=== PATIENT | female | born 1935 | race Caucasian/White ===

== ENCOUNTER 2021-05-28 19:29 | Inpatient (IN) | payer MEDICARE, MEDICAID, SELFPAY ==
[2021-05-28] VITALS (7 sets, daily range): BP systolic 144–168; BP diastolic 62–93; PULSE 50–70; RESP 10–20; TEMP 36.4; O2SAT 98–100; BMI 25.0
--- NOTE | 2021-05-28 19:31 | ED_ITS ---
Documented by User: Pa Leon MD 05/31/21 11:54 HPI - Syncope General: Chief Complaint: Syncope Stated Complaint: SYNCOPE x2 Time Seen by Provider: 05/28/21 19:30 History of Present Illness: HPI narrative: Ms. Santoyo is an 85-year-old lady with significant past medical history of hypertension, hyperlipidemia, and diabetes who presents emergency department due to syncope. She reports being at her baseline health. She was out side today watching someone felt offensive feels like she just got too hot. She had witnessed loss of consciousness without seizure-like activity. No head strike that she was gently lowered to the ground. She quickly recovered and no postictal period was observed or confusion. She currently feels at her baseline. No other new changes, specific provoking, exacerbating, or relieving factors identified. Review of Systems General: Reports: 10 or more systems reviewed and unremarkable except in HPI and below PFSH ED PFSH: Medical History Diabetes mellitus Hyperlipidemia Hypertension No pertinent family history Surgical History No pertinent past surgical history Social History Smoking and tobacco status: never smoked Alcohol intake: never Substance/Drug Use: never Physical Exam Narrative: EXAM NARRATIVE: GENERAL/CONSTITUTIONAL -frail-appearing. No acute distress. Eyes - PERRL, no conjunctival injection ENMT - Atraumatic external nose and ears. Moist mucous membranes NECK - supple. trachea midline CARDIOVASCULAR - regular rate and rhythm. Peripheral pulses 2+ and equal RESPIRATORY -clear to auscultation bilaterally. No retractions or accessory muscle use. ABDOMEN/GI - Nontender/Nondistended. No tenderness to percussion or evidence of peritonitis MSK - Extremities without obvious deformity or tenderness to palpation SKIN - Warm, Dry NEURO - alert and appropriately oriented. Cranial nerve II through XII intact. Strength and sensation intact. Moves all extremities equally. PSYCH - Appropriate mood and affect Course ED course: - Patient was seen and evaluated by me at bedside - Patient placed on cardiac monitors, IV access obtained - Initial evaluation notable for no acute distress, nontoxic appearance. No focal neurologic deficits. - Labs notable for no acute abnormality to explain patient's symptoms, squamous epithelial contamination present on urinalysis and patient denies urinary symptoms. - Imaging notable for no acute abnormality to explain symptoms - Upon serial reexamination after treatment the patient was similar. Results of ED evaluation were discussed with the patient and family. Offered admission versus 6-hour troponin, patient initially elected for 6-hour troponin and close outpatient follow-up. - Patient care handed off to overnight physician pending 6-hour troponin Vital Signs: Vital signs: Vital Signs Temperature 97.9 F 05/31/21 11:10 Pulse Rate 67 05/31/21 11:10 Respiratory Rate 16 05/31/21 11:10 Blood Pressure 160/76 05/31/21 11:10 Pulse Oximetry 99 05/31/21 11:10 MDM - Syncope Medical Records: Attestation: I reviewed the patient's medical records. Lab Data: Attestation: I reviewed the patient's lab results. Labs: Lab Results 05/28/21 05/28/21 05/28/21 19:45 19:45 19:45 WBC 6.7 10^3/uL 10^3/ uL (4.0-10.0) RBC 3.54 10^6/uL L 10 ^6/uL (4.1-5.3) Hgb 10.5 g/dL L g/dL (11.5-15.3) Hct 34.9 % L % (37.0-47.0) MCV 98.6 fl fl (81-99) MCH 29.7 pg pg (28.0-34.0) MCHC 30.1 g/dL g/dL (30.0-36.0) RDW 12.5 % % (12.1-15.1) Plt Count 138 10^3/cmm 10^3 /cmm (130-400) MPV 9.4 fL fL (7.4-10.4) Neut % (Auto) 54.4 % % Lymph % (Auto) 36.1 % % Craven % (Auto) 5.8 % % Eos % (Auto) 2.7 % % Baso % (Auto) 0.7 % % Neut # (Auto) 3.64 10^3/uL 10^3 /uL (1.8-7.7) Lymph # (Auto) 2.4 10^3/uL 10^3/ uL (0.8-4.8) Craven # (Auto) 0.4 10^3/uL 10^3/ uL (0.2-0.9) Eos # (Auto) 0.2 10^3/uL 10^3/ uL (0.0-0.8) Baso # (Auto) 0.1 10^3/uL 10^3/ uL (0.0-0.1) Nucleated RBC % (a uto) 0 % % Nucleated RBCs # 0.0 /100WBC /100W BC Sodium 138 mmol/L mmol/L (136-145) Potassium 4.5 mmol/L mmol/L (3.5-5.1) Chloride 107 mmol/L mmol/L (98-107) Carbon Dioxide 20 mmol/L L mmol/ L (22-29) Anion Gap 15.5 (5-19) BUN 24 mg/dL H mg/dL (8-23) Creatinine 1.0 mg/dL H mg/dL (0.5-0.9) GFR Calculation Not Reportable Glucose 79 mg/dL mg/dL (65-115) POC Glucose Calculated Osmolal ity 289 mOsm/kg mOsm/ kg (285-295) Lactate Calcium 8.5 mg/dL mg/dL (8.5-10.5) Magnesium 1.6 mg/dL L mg/dL (1.7-2.3) Total Bilirubin 0.2 mg/dL mg/dL (0.15-1.2) AST 15 U/L U/L (0-32) ALT 11 U/L U/L (0-33) Alkaline Phosphata se 50 IU/L IU/L (35-105) Troponin T Baselin e 15 ng/L H ng/L (0-10) Troponin T 120 Min [place] Troponin T Troponin T Hi Sens 6Hr Troponin T Hi Sens 6Hr Delta NT-Pro-B Natriuret Pep 269 pg/mL pg/mL (0-450) Total Protein 5.8 g/dL L g/dL (6.6-8.7) Albumin 3.5 g/dL g/dL (3.5-5.2) Globulin 2.3 g/dL g/dL (1.3-4.6) TSH 3.17 uIU/mL uIU/m L (0.27-4.20) Urine Color Urine Appearance Urine pH Ur Specific Gravit y Urine Protein Urine Glucose (UA) Urine Ketones Urine Blood Urine Nitrate Urine Bilirubin Urine Urobilinogen Ur Leukocyte Genesis ase Urine RBC Urine WBC Ur Squamous Epith Cells Amorphous Sediment Urine Bacteria 05/28/21 05/28/21 05/28/21 20:10 20:22 20:25 WBC RBC Hgb Hct MCV MCH MCHC RDW Plt Count MPV Neut % (Auto) Lymph % (Auto) Craven % (Auto) Eos % (Auto) Baso % (Auto) Neut # (Auto) Lymph # (Auto) Craven # (Auto) Eos # (Auto) Baso # (Auto) Nucleated RBC % (a uto) Nucleated RBCs # Sodium Potassium Chloride Carbon Dioxide Anion Gap BUN Creatinine GFR Calculation Glucose POC Glucose 84 mg/dL mg/dL (70-110) Calculated Osmolal ity Lactate 1.0 mmol/L mmol/L (0.5-2.2) Calcium Magnesium Total Bilirubin AST ALT Alkaline Phosphata se Troponin T Baselin e Troponin T 120 Min [place] Troponin T Troponin T Hi Sens 6Hr Troponin T Hi Sens 6Hr Delta NT-Pro-B Natriuret Pep Total Protein Albumin Globulin TSH Urine Color Yellow (Yellow) Urine Appearance Sl cloudy A (CLEAR) Urine pH 5 (5-7) Ur Specific Gravit y 1.015 (1.005-1.030) Urine Protein Neg (Negative) Urine Glucose (UA) Norm (Normal) Urine Ketones Negative (Negative) Urine Blood 2+ H (Negative) Urine Nitrate Positive H (Negative) Urine Bilirubin Neg (Negative) Urine Urobilinogen Norm mg/dL mg/dL (Negative) Ur Leukocyte Genesis ase 2+ H (Negative) Urine RBC 10-15 /hpf H /hpf (0-2) Urine WBC 40-55 /hpf H /hpf (0-5) Ur Squamous Epith Cells 5-10 /hpf H /hpf (0-5) Amorphous Sediment Not Reportable Urine Bacteria 4+ /hpf H /hpf (NONE) 05/28/21 05/29/21 05/29/21 22:01 01:17 08:11 WBC RBC Hgb Hct MCV MCH MCHC RDW Plt Count MPV Neut % (Auto) Lymph % (Auto) Craven % (Auto) Eos % (Auto) Baso % (Auto) Neut # (Auto) Lymph # (Auto) Craven # (Auto) Eos # (Auto) Baso # (Auto) Nucleated RBC % (a uto) Nucleated RBCs # Sodium Potassium Chloride Carbon Dioxide Anion Gap BUN Creatinine GFR Calculation Glucose POC Glucose 93 mg/dL mg/dL (70-110) Calculated Osmolal ity Lactate Calcium Magnesium Total Bilirubin AST ALT Alkaline Phosphata se Troponin T Baselin e Troponin T 120 Min [place] 19.13 ng/L H ng/L (0-10) Delta Troponin T 4.13 ABS# ABS# (0-10) Troponin T Hi Sens 6Hr 29.96 ng/L H ng/L (0-10) Troponin T Hi Sens 6Hr Delta 14.96 ng/L H* ng/ L (0-12) NT-Pro-B Natriuret Pep Total Protein Albumin Globulin TSH Urine Color Urine Appearance Urine pH Ur Specific Gravit y Urine Protein Urine Glucose (UA) Urine Ketones Urine Blood Urine Nitrate Urine Bilirubin Urine Urobilinogen Ur Leukocyte Genesis ase Urine RBC Urine WBC Ur Squamous Epith Cells Amorphous Sediment Urine Bacteria EKG Data^: EKG 1: Attestation: I personally reviewed and interpreted this EKG as follows: EKG interpretation date: 05/28/21 EKG interpretation time: 21:53 Interpretation: Twelve-lead EKG shows a regular rhythm at a rate of 51. DE interval 223, QRS duration 134, QTc 451. Left axis deviation. Interpretation: Sinus rhythm. Bradycardia. Bundle branch block. Discharge Plan Discharge Patient Disposition: Placed in Observation Admit Provider: Davina Clark Clinical Impression: Syncope and collapse, Acute UTI Coding Level of Care Code ED Concrete Spreader for Chg Fwd Documented by User: Santiago Granados DO 05/29/21 02:26 HPI - Syncope General: Chief Complaint: Syncope Stated Complaint: SYNCOPE x2 Time Seen by Provider: 05/28/21 19:30 PFSH ED PFSH: Medical History Diabetes mellitus Hyperlipidemia Hypertension No pertinent family history Surgical History No pertinent past surgical history Social History Smoking and tobacco status: never smoked Alcohol intake: never Substance/Drug Use: never Course Consultations: Consultation #1: britta Time: 02:25 Vital Signs: Vital signs: Vital Signs Temperature 97.9 F 05/31/21 11:10 Pulse Rate 67 05/31/21 11:10 Respiratory Rate 16 05/31/21 11:10 Blood Pressure 160/76 05/31/21 11:10 Pulse Oximetry 99 05/31/21 11:10 MDM - Syncope MDM Narrative: Medical decision making narrative: 85-year-old female checked out to me by Dr. Torres at shift change. This lady was waiting on a 6-hour troponin, as she had a minimal delta of 4 at 2 hours after a syncopal episode. She remains asymptomatic. Her delta, though, at 6 hours is 14 just significant. She will be observed Lab Data: Labs: Lab Results 05/28/21 05/28/21 05/28/21 19:45 19:45 19:45 WBC 6.7 10^3/uL 10^3/ uL (4.0-10.0) RBC 3.54 10^6/uL L 10 ^6/uL (4.1-5.3) Hgb 10.5 g/dL L g/dL (11.5-15.3) Hct 34.9 % L % (37.0-47.0) MCV 98.6 fl fl (81-99) MCH 29.7 pg pg (28.0-34.0) MCHC 30.1 g/dL g/dL (30.0-36.0) RDW 12.5 % % (12.1-15.1) Plt Count 138 10^3/cmm 10^3 /cmm (130-400) MPV 9.4 fL fL (7.4-10.4) Neut % (Auto) 54.4 % % Lymph % (Auto) 36.1 % % Craven % (Auto) 5.8 % % Eos % (Auto) 2.7 % % Baso % (Auto) 0.7 % % Neut # (Auto) 3.64 10^3/uL 10^3 /uL (1.8-7.7) Lymph # (Auto) 2.4 10^3/uL 10^3/ uL (0.8-4.8) Craven # (Auto) 0.4 10^3/uL 10^3/ uL (0.2-0.9) Eos # (Auto) 0.2 10^3/uL 10^3/ uL (0.0-0.8) Baso # (Auto) 0.1 10^3/uL 10^3/ uL (0.0-0.1) Nucleated RBC % (a uto) 0 % % Nucleated RBCs # 0.0 /100WBC /100W BC Sodium 138 mmol/L mmol/L (136-145) Potassium 4.5 mmol/L mmol/L (3.5-5.1) Chloride 107 mmol/L mmol/L (98-107) Carbon Dioxide 20 mmol/L L mmol/ L (22-29) Anion Gap 15.5 (5-19) BUN 24 mg/dL H mg/dL (8-23) Creatinine 1.0 mg/dL H mg/dL (0.5-0.9) GFR Calculation Not Reportable Glucose 79 mg/dL mg/dL (65-115) POC Glucose Calculated Osmolal ity 289 mOsm/kg mOsm/ kg (285-295) Lactate Calcium 8.5 mg/dL mg/dL (8.5-10.5) Magnesium 1.6 mg/dL L mg/dL (1.7-2.3) Total Bilirubin 0.2 mg/dL mg/dL (0.15-1.2) AST 15 U/L U/L (0-32) ALT 11 U/L U/L (0-33) Alkaline Phosphata se 50 IU/L IU/L (35-105) Troponin T Baselin e 15 ng/L H ng/L (0-10) Troponin T 120 Min [place] Troponin T Troponin T Hi Sens 6Hr Troponin T Hi Sens 6Hr Delta NT-Pro-B Natriuret Pep 269 pg/mL pg/mL (0-450) Total Protein 5.8 g/dL L g/dL (6.6-8.7) Albumin 3.5 g/dL g/dL (3.5-5.2) Globulin 2.3 g/dL g/dL (1.3-4.6) TSH 3.17 uIU/mL uIU/m L (0.27-4.20) Urine Color Urine Appearance Urine pH Ur Specific Gravit y Urine Protein Urine Glucose (UA) Urine Ketones Urine Blood Urine Nitrate Urine Bilirubin Urine Urobilinogen Ur Leukocyte Genesis ase Urine RBC Urine WBC Ur Squamous Epith Cells Amorphous Sediment Urine Bacteria 05/28/21 05/28/21 05/28/21 20:10 20:22 20:25 WBC RBC Hgb Hct MCV MCH MCHC RDW Plt Count MPV Neut % (Auto) Lymph % (Auto) Craven % (Auto) Eos % (Auto) Baso % (Auto) Neut # (Auto) Lymph # (Auto) Craven # (Auto) Eos # (Auto) Baso # (Auto) Nucleated RBC % (a uto) Nucleated RBCs # Sodium Potassium Chloride Carbon Dioxide Anion Gap BUN Creatinine GFR Calculation Glucose POC Glucose 84 mg/dL mg/dL (70-110) Calculated Osmolal ity Lactate 1.0 mmol/L mmol/L (0.5-2.2) Calcium Magnesium Total Bilirubin AST ALT Alkaline Phosphata se Troponin T Baselin e Troponin T 120 Min [place] Troponin T Troponin T Hi Sens 6Hr Troponin T Hi Sens 6Hr Delta NT-Pro-B Natriuret Pep Total Protein Albumin Globulin TSH Urine Color Yellow (Yellow) Urine Appearance Sl cloudy A (CLEAR) Urine pH 5 (5-7) Ur Specific Gravit y 1.015 (1.005-1.030) Urine Protein Neg (Negative) Urine Glucose (UA) Norm (Normal) Urine Ketones Negative (Negative) Urine Blood 2+ H (Negative) Urine Nitrate Positive H (Negative) Urine Bilirubin Neg (Negative) Urine Urobilinogen Norm mg/dL mg/dL (Negative) Ur Leukocyte Genesis ase 2+ H (Negative) Urine RBC 10-15 /hpf H /hpf (0-2) Urine WBC 40-55 /hpf H /hpf (0-5) Ur Squamous Epith Cells 5-10 /hpf H /hpf (0-5) Amorphous Sediment Not Reportable Urine Bacteria 4+ /hpf H /hpf (NONE) 05/28/21 05/29/21 05/29/21 22:01 01:17 08:11 WBC RBC Hgb Hct MCV MCH MCHC RDW Plt Count MPV Neut % (Auto) Lymph % (Auto) Craven % (Auto) Eos % (Auto) Baso % (Auto) Neut # (Auto) Lymph # (Auto) Craven # (Auto) Eos # (Auto) Baso # (Auto) Nucleated RBC % (a uto) Nucleated RBCs # Sodium Potassium Chloride Carbon Dioxide Anion Gap BUN Creatinine GFR Calculation Glucose POC Glucose 93 mg/dL mg/dL (70-110) Calculated Osmolal ity Lactate Calcium Magnesium Total Bilirubin AST ALT Alkaline Phosphata se Troponin T Baselin e Troponin T 120 Min [place] 19.13 ng/L H ng/L (0-10) Delta Troponin T 4.13 ABS# ABS# (0-10) Troponin T Hi Sens 6Hr 29.96 ng/L H ng/L (0-10) Troponin T Hi Sens 6Hr Delta 14.96 ng/L H* ng/ L (0-12) NT-Pro-B Natriuret Pep Total Protein Albumin Globulin TSH Urine Color Urine Appearance Urine pH Ur Specific Gravit y Urine Protein Urine Glucose (UA) Urine Ketones Urine Blood Urine Nitrate Urine Bilirubin Urine Urobilinogen Ur Leukocyte Genesis ase Urine RBC Urine WBC Ur Squamous Epith Cells Amorphous Sediment Urine Bacteria Discharge Plan Discharge Patient Disposition: Placed in Observation Admit Provider: Davina Clark Clinical Impression: Syncope and collapse, Acute UTI Coding Level of Care Code ED Concrete Spreader for Sury Mccormack
--- NOTE | 2021-05-28 19:41 | XRR_ITS ---
PROCEDURE INFORMATION: Exam: XR Chest Exam date and time: 05/28/2021 7:41 PM Age: 85 years old Clinical indication: Other: Syncope; Patient HX: Syncopal episode TECHNIQUE: Imaging protocol: XR of the chest. Views: 1 view. COMPARISON: CR Chest 2 views* [id number] 11/01/2018 6:02 PM FINDINGS: Lungs: Unremarkable. No consolidation. Pleural spaces: Unremarkable. No pleural effusion. No pneumothorax. Heart/Mediastinum: Unremarkable. No cardiomegaly. Bones/joints: Unremarkable. XR/XR chest 1V portable [id number] IMPRESSION: No acute findings.
--- NOTE | 2021-05-28 19:41 | CTR_ITS ---
PROCEDURE INFORMATION: Exam: CT Head Without Contrast Exam date and time: 05/28/2021 7:41 PM Age: 85 years old Clinical indication: Syncope and collapse; Patient HX: Syncopal episode TECHNIQUE: Imaging protocol: Computed tomography of the head without contrast. Radiation optimization: All CT scans at this facility use at least one of these dose optimization techniques: automated exposure control; mA and/or kV adjustment per patient size (includes targeted exams where dose is matched to clinical indication); or iterative reconstruction. COMPARISON: CT head wo con* [id number] 11/01/2018 5:54 PM RADIATION DOSE METRICS: Total DLP (mGy-cm): 863.64 FINDINGS: Brain: There is mild cerebral atrophy. There is mild diffuse heterogeneity of the white matter attenuation, consistent with chronic white matter ischemic changes. Negative for intracranial hemorrhage. No intracranial mass. No focal areas of acute brain ischemia. No cerebral sulcal effacement. Ramos matter and white matter interfaces are preserved. Cerebral ventricles: No ventriculomegaly. Paranasal sinuses: Visualized sinuses are unremarkable. No fluid levels. Mastoid air cells: Visualized mastoid air cells are well aerated. Orbital cavity: Orbits are symmetric. Bones/joints: Unremarkable. No acute fracture. Soft tissues: Unremarkable. CT/CT head wo con* [id number] IMPRESSION: 1. Negative for acute intracranial abnormality. 2. No change from comparison. Radiation Dose CTDIVOL = (mGy): DLP = 863.64 (mGy-cm)
--- NOTE | 2021-05-28 19:42 | ECG_ITS ---
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1935 Requested By: Pa Leon Order Number: [id number] Alfredo MD: PANKAJ GRAFF Measurements Intervals [place] Rate: 51 P: 72 IN: 223 QRS: -59 QRSD: 134 T: 24 QT: 487 QTc: 451 Interpretive Statements SINUS BRADYCARDIA WITH FIRST DEGREE AV BLOCK RIGHT BUNDLE BRANCH BLOCK [120+ ms QRS DURATION, UPRIGHT V1, 40+ ms S IN I/aVL/V4/V5/V6] LEFT ANTERIOR FASCICULAR BLOCK [QRS AXIS <= -45, QR IN I, RS IN II] PROBABLE SEPTAL MYOCARDIAL INFARCTION , OF INDETERMINATE AGE [35 ms Q WAVE IN V1/V2] Compared to ECG 11/01/2018 18:23:33 First degree AV block now present Myocardial infarct finding now present Sinus rhythm no longer present Electronically Signed On 05-29-2021 20:20:11 CDT by PANKAJ GRAFF [id number]
[2021-05-28 19:56] LABS: Basophils # 0.1 10^3/uL (0.0-0.1); Basophils % 0.7 %; Eosinophils # 0.2 10^3/uL (0.0-0.8); Eosinophils % 2.7 %; Hematocrit 34.9 % (37.0-47.0); Hemoglobin 10.5 g/dL (11.5-15.3); Lymphocytes # 2.4 10^3/uL (0.8-4.8); Lymphocytes % 36.1 %; Mean Corpuscular HGB Conc 30.1 g/dL (30.0-36.0); Mean Corpuscular Hemoglobin 29.7 pg (28.0-34.0); Mean Corpuscular Volume 98.6 fl (81-99); Mean Platelet Volume 9.4 fL (7.4-10.4); Monocytes # 0.4 10^3/uL (0.2-0.9); Monocytes % 5.8 %; Neutrophils # 3.64 10^3/uL (1.8-7.7); Neutrophils % 54.4 %; Nucleated Red Blood Cells % 0 %; Platelet Count 138 10^3/cmm (130-400); Red Blood Count 3.54 10^6/uL (4.1-5.3); Red Cell Distribution Width 12.5 % (12.1-15.1); White Blood Count 6.7 10^3/uL (4.0-10.0)
[2021-05-28 20:22] LABS: Troponin(5th) Baseline 15 ng/L (0-10)
[2021-05-28 20:25] LABS: Glucose Point of Care 84 mg/dL (70-110)
[2021-05-28 20:30] LABS: Alanine Aminotransferase 11 U/L (0-33); Albumin Level 3.5 g/dL (3.5-5.2); Alkaline Phosphatase 50 IU/L (35-105); Anion Gap 15.5 (5-19); Aspartate Amino Transferase 15 U/L (0-32); Blood Urea Nitrogen 24 mg/dL (8-23); Calcium 8.5 mg/dL (8.5-10.5); Carbon Dioxide 20 mmol/L (22-29); Chloride 107 mmol/L (98-107); Globulin 2.3 g/dL (1.3-4.6); Glucose 79 mg/dL (65-115); Magnesium 1.6 mg/dL (1.7-2.3); NT Pro B Type Natriuretic Pept 269 pg/mL (0-450); Osmolality Calculated 289 mOsm/kg (285-295); Potassium 4.5 mmol/L (3.5-5.1); Sodium 138 mmol/L (136-145); Thyroid Stimulating Hormone 3.17 uIU/mL (0.27-4.20); Total Bilirubin 0.2 mg/dL (0.15-1.2); Total Protein 5.8 g/dL (6.6-8.7)
[2021-05-28 20:30] LABS: Bilirubin Urine Neg (Negative); Blood Urine 2+ (Negative); Glucose Urine UA Norm (Normal); Ketones Urine Negative (Negative); Leukocyte Esterase Urine 2+ (Negative); Nitrate Urine Positive (Negative); Protein Urine Neg (Negative); Specific Gravity, Urine 1.015 (1.005-1.030); Urine Color Yellow (Yellow); Urobilinogen Urine Norm (Negative); pH Urine 5 (5-7)
[2021-05-28 20:31] LABS: Add Urine Microscopic? YES
[2021-05-28 20:35] LABS: Add Urine Culture? Yes; Bacteria Urine 4+ /hpf; WBC Urine 40-55 /hpf (0-5)
[2021-05-28] MEDS: cefTRIAXone 1,000 MG in sodium chloride 0.9% (plus) 50 ML 100 MG IV (21:10)
--- NOTE | 2021-05-28 21:42 | ECG_ITS ---
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1935 Requested By: Pa Leon Order Number: [id number] Reading MD: PANKAJ GRAFF Measurements Intervals [place] Rate: 58 P: 56 IL: 211 QRS: -58 QRSD: 146 T: 42 QT: 481 QTc: 473 Interpretive Statements SINUS BRADYCARDIA WITH FIRST DEGREE AV BLOCK POSSIBLE LEFT ATRIAL ENLARGEMENT [-0.1mV P-WAVE IN V1/V2] RIGHT BUNDLE BRANCH BLOCK [120+ ms QRS DURATION, UPRIGHT V1, 40+ ms S IN I/aVL/V4/V5/V6] LEFT ANTERIOR FASCICULAR BLOCK [QRS AXIS <= -45, QR IN I, RS IN II] SEPTAL MYOCARDIAL INFARCTION , OF INDETERMINATE AGE [40+ ms Q WAVE IN V1/V2] Compared to ECG 05/28/2021 21:48:14 No significant changes Electronically Signed On 05-29-2021 20:23:33 CDT by PANKAJ GRAFF [id number]
--- NOTE | 2021-05-28 22:31 | PC.NURSE ---
pt support person concerned with her BG. Physician notified and ok'd to give OJ but no food at this time.
[2021-05-28 22:36] LABS: Troponin 5 2HR 19.13 ng/L (0-10); Troponin 5 2HR Delta 4.13 ABS# (0-10)
[2021-05-28] MEDS: insulin glargine 100 units/1 mL 6 UNIT SUBCUT (23:46)
[2021-05-29] VITALS (11 sets, daily range): BP systolic 105–175; BP diastolic 57–85; PULSE 51–71; RESP 14–25; TEMP 36.5–37.1; O2SAT 97–100
--- NOTE | 2021-05-29 01:42 | ECG_ITS ---
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1935 Requested By: Pa Leon Order Number: [id number] Alfredo MD: PANKAJ GRAFF Measurements Intervals [place] Rate: 70 P: [place]: QRS: 81 QRSD: 90 T: 0 QT: 377 QTc: 408 Interpretive Statements ATRIAL FIBRILLATION ANTERIOR MYOCARDIAL INFARCTION , OF INDETERMINATE AGE [40+ ms Q WAVE AND/OR ST/T ABNORMALITY IN V3/V4] INTERPRETATION BASED ON A DEFAULT AGE OF 40 YEARS Compared to ECG 05/29/2021 01:11:02 Sinus bradycardia no longer present First degree AV block no longer present Right bundle-branch block no longer present Left anterior fascicular block no longer present Myocardial infarct finding still present Electronically Signed On 05-29-2021 20:23:27 CDT by PANKAJ GRAFF [id number]
[2021-05-29 01:47] LABS: Troponin 5 6HR 29.96 ng/L (0-10)
[2021-05-29 02:07] LABS: Troponin 5 6HR Delta 14.96 ng/L (0-12)
--- NOTE | 2021-05-29 02:49 | PC.NURSE ---
spoke with family for update. daughters ihsan and zacarias both put on phi. dr callejas in to see patient at this time. pt had no questions.
--- NOTE | 2021-05-29 04:30 | USCV_ITS ---
Sara Santoyo Age: 85 Gender: F : 1935 Exam Date: 05/29/2021 06:21 Ordering Phys: Davina Clark MD Technologist: Karen Roberts Exam Location: [facility] [place] Indication: ELEVATED TROPONIN BP: / HR: 55 Rhythm: Sinus Technical Quality: Adequate MEASUREMENTS (Male / Female) Normal Values 2D ECHO LV Diastolic Diameter PLAX 3.0 cm 4.2 - 5.9 / 3.9 - 5.3 cm LV Systolic Diameter PLAX 2.1 cm IVS Diastolic Thickness 1.2 cm 0.6 - 1.0 / 0.6 - 0.9 cm IVS Systolic Thickness 1.6 cm LVPW Diastolic Thickness 1.2 cm 0.6 - 1.0 / 0.6 - 0.9 cm LVPW Systolic Thickness 1.4 cm LVOT Diameter 2.0 cm LV Ejection Fraction 2D Teich 59.1 % LV Ejection Fraction MOD 2C 63.3 % LV Ejection Fraction 2C AL 66.2 % LA Diameter 2.0 cm LA Width 3.5 cm LA Height 3.6 cm RA Width 3.1 cm RA Height 3.9 cm Aorta at Sinotubular Diameter 2.3 cm DOPPLER AV Peak Velocity 109.0 cm/s LVOT Peak Velocity 90.0 cm/s AV Area Cont Eq vti 2.6 cm squared AV Area Cont Eq pk 2.6 cm squared MV Area PHT 5.0 cm squared Mitral E to A Ratio 0.9 MV E' Velocity 57.5 cm/s Mitral E to MV E' Ratio 10.9 Mitral E to LV E' Lateral Ratio 9.8 Mitral E to LV E' Septal Ratio 12.5 TR Peak Velocity 202.7 cm/s TR Peak Gradient 16.4 mmHg TV Peak E Velocity 38.0 cm/s Right Atrial Pressure 3.0 mmHg Pulmonary Artery Systolic Pressu 19.4 mmHg PV Peak Velocity 104.0 cm/s RV Acceleration Time 0.1 s RV Ejection Time 0.4 s RV AcT/ET 0.4 FINDINGS Left Ventricle Normal left ventricular size and systolic function, EF 68 %. Mild left ventricular hypertrophy. No regional wall motion abnormalities. Grade II/IV diastolic dysfunction, moderately elevated filling pressures. Right Ventricle The right ventricle is normal in size and function. Right Atrium The right atrium is normal in size. Left Atrium The left atrium is normal in size. Mitral Valve Thickened mitral valve. Moderate mitral annular calcification. Moderate-severe mitral valve regurgitation. Aortic Valve Thickened aortic valve. Tricuspid Valve Trace tricuspid valve regurgitation. Pulmonic Valve Pulmonic valve not well visualized. Pericardium Normal pericardium without effusion. Aorta Normal ascending aorta dimension. CONCLUSIONS Normal left ventricular size and systolic function, EF 68 %. Mild left ventricular hypertrophy. No regional wall motion abnormalities. Grade II/IV diastolic dysfunction, moderately elevated filling pressures. Thickened mitral valve. Moderate mitral annular calcification. Moderate-severe mitral valve regurgitation. Thickened aortic valve. Trace tricuspid valve regurgitation. There is no pericardial effusion. There are no intracardiac masses. No previous study is available for comparison. Dr Humberto Parra MD FACC (Electronically Signed) Final Date: 29 May 2021 22:03 S
--- NOTE | 2021-05-29 04:37 | PM.HP ---
Providers/Chief Complaint Admitting Physician: Davina Clark Primary Care Provider: Dayday Chandler DO Chief Complaint: SYNCOPED History of Present Illness 85-year-old female with past medical history significant for hypertension, hyperlipidemia, and diabetes mellitus who presented to the hospital after had a syncopal episode. Patient stated she was walking in her yard when all the sudden she passed out. She does not recall having any symptoms prior to event. No head trauma, chest pain or dyspnea after. Noted similar event in the past etiology of which was not known. Laboratory workup in emergency room showed a WBC of 6.7, hemoglobin 10.5, hematocrit 34.9 and a platelet count of 138. Sodium 138, potassium 4.5, chloride 107, bicarb 20, BUN 24 and creatinine 1.0. Magnesium of 1.6. AST of 15, ALT of 11 alkaline phosphatase of 50. Troponin T baseline of 15, 19.1 at 2 hr and 29.96 at 6hr. UA showed positive nitrates, 2+ leukocyte esterase and 40-[address] did not show any evidence of acute abnormality and chest x-ray which also did not show any acute findings. Patient was stable at the time of my evaluation without any discomfort. In emergency room patient was given Rocephin 1 g IV x1, Lantus 6 units subcu x1 and magnesium 1 g IV x1. Review of Systems General: Reports: 10 or more systems reviewed and unremarkable except in HPI and below Medications/Allergies Home Medications Medication Instructions Recorded Confirmed Last Taken Type nitrofurantoin macrocrystal 100 mg PO BID 7 Days #14 cap 05/28/21 Unknown Rx Allergies Allergy/AdvReac Type Severity Reaction Status Date / Time No Known Allergies Allergy Verified 05/28/21 19:32 PFSH Acute PFSH: Medical History Diabetes mellitus Hyperlipidemia Hypertension No pertinent family history Surgical History No pertinent past surgical history Social History Smoking and tobacco status: never smoked Alcohol intake: never Substance/Drug Use: never Vitals/I&O/Wt Last Vital Signs Temp 97.6 F 05/28/21 19:30 Pulse 57 L 10/04/21 03:39 Resp 14 05/29/21 03:39 BP 156/71 05/29/21 03:39 Pulse Ox 97 05/29/21 03:39 05/28/21 05/28/21 05/29/21 14:59 22:59 06:59 Intake Total 102 / 102 Balance 102 / 102 Weight last 48 hrs Weight 68.039 kg Physical Exam Narrative: EXAM NARRATIVE: General : Alert, Awake oriented x3 HEENT; Grossly unremarkable CVS: NSR Chest: Non-labored respiration Abd: non-distended Ext; No edema Data : 05/28/21 19:45 05/28/21 19:45 A&P Assessment and plan (1) Syncope and collapse: Status: Acute (2) Acute UTI: Status: Acute (3) Elevated troponin: Status: Acute Additional A&P Information Syncopal event Etiology unclear Head CT- no acute findings Cardiac work up Check Orthostatic Fall precautions Monitor on tele May consider environmental monitoring specialist at discharge Elevated Troponin Chest pain free Troponin 15->19->29 Obtain ECHO Telemetry Aspirin 325 mg x1 ->81mg daily Check Lipid panel in am Urinary tract infection Was on Macrobid QUARTER TRIMMER Rocephin 1g IV daily Follow up on culture Diabetes mellitus Metformin held Lantus 6units qhs in ER Sliding scale insulin Blood sugars 70-100 at home Diabetic diet DVT ppx Lovenox 40 mg SQ daily Attestations Medical Necessity Statement*: Anticipate less than 2 midnight stay in hospital for evaluation treatment Time Spent in Patient Care: Greater than 35 minutes (>than 50% of time spent in counselling and/or direct pt care on unit). Coding Level of Care Code Acute Sewer Pipe Layer for [facility] Diagnoses Syncope and collapse R55 Acute UTI N39.0 Elevated troponin R77.8
[2021-05-29] MEDS: sodium chloride 0.9% 1,000 ML 75 ML IV ×2 (04:53→20:19)
[2021-05-29] MEDS: enoxaparin 40 mg/0.4 mL Syringe SUBCUT (04:53)
[2021-05-29] MEDS: aspirin 325 mg EC Tablet PO (08:06)
[2021-05-29 08:13] LABS: Glucose Point of Care 93 mg/dL (70-110)
--- NOTE | 2021-05-29 11:14 | USCV_ITS ---
Sara Santoyo Age: 85 Gender: F : 1935 Exam Date: 05/29/2021 15:13 Ordering Phys: Stevo Kovacs MD Technologist: Sarita Long Exam Location: [facility] [place] Indication: SYNCOPE Risk Factors: NONE Previous Vascular Surgery: NONE Right Brachial BP: / Left Brachial BP: / Right Left Velocity (cm/s) Spectral Plaque Velocity (cm/s) Spectral Plaque Syst/Diast Broadening Syst/Diast Broadening 72.25/ 9.90 Prox CCA 52.00 / 9.00 33.50/ 9.90 Mid CCA 42.10 / 8.90 36.80/ 7.90 Distal CCA 50.40 / 10.20 39.10/ 11.60 Prox ICA 45.10 / 12.40 48.80/ 12.20 Mid ICA 60.60 / 13.20 50.80/ 14.90 Distal ICA 77.70 / 24.10 63.40 ECA 72.30 0.71 ICA/CCA 1.49 Antegrade Vertebral Antegrade 35.90/ 8.10 cm/s 61.40/ 14.00 cm/s Tri Subclavian Tri 100.3 112.5 0 0 FINDINGS Comparison: none available. No significant elevation of systolic or diastolic velocities. Waveforms are normal. Minimal bilateral, calcified plaque with no elevation of velocity. Bilateral antegrade vertebral arteries. CONCLUSIONS Bilateral ICA stenosis less than 50%. Mild carotid atherosclerosis. Dr. Elizabeth Emerson DO (Electronically Signed) Final Date: 30 May 2021 08:16 S
[2021-05-29 12:09] LABS: Basophils % 0.4 %; Eosinophils # 0.1 10^3/uL (0.0-0.8); Eosinophils % 2.3 %; Hematocrit 34.5 % (37.0-47.0); Lymphocytes # 1.6 10^3/uL (0.8-4.8); Lymphocytes % 30.3 %; Mean Corpuscular HGB Conc 31.9 g/dL (30.0-36.0); Mean Corpuscular Hemoglobin 29.8 pg (28.0-34.0); Mean Corpuscular Volume 93.5 fl (81-99); Mean Platelet Volume 9.5 fL (7.4-10.4); Monocytes # 0.3 10^3/uL (0.2-0.9); Neutrophils # 3.15 10^3/uL (1.8-7.7); Neutrophils % 60.8 %; Nucleated Red Blood Cells % 0 %; Platelet Count 164 10^3/cmm (130-400); Red Blood Count 3.69 10^6/uL (4.1-5.3); Red Cell Distribution Width 12.5 % (12.1-15.1); White Blood Count 5.2 10^3/uL (4.0-10.0)
[2021-05-29 12:16] LABS: Glucose Point of Care 136 mg/dL (70-110)
[2021-05-29 12:29] LABS: Estmated Average Glucose 100; Hemoglobin A1C 5.1 % (4.0-6.0)
[2021-05-29 12:37] LABS: Alanine Aminotransferase 11 U/L (0-33); Albumin Level 3.6 g/dL (3.5-5.2); Alkaline Phosphatase 52 IU/L (35-105); Aspartate Amino Transferase 15 U/L (0-32); Blood Urea Nitrogen 20 mg/dL (8-23); Calcium 9.2 mg/dL (8.5-10.5); Carbon Dioxide 24 mmol/L (22-29); Chloride 109 mmol/L (98-107); Globulin 2.2 g/dL (1.3-4.6); Glucose 151 mg/dL (65-115); Osmolality Calculated 298 mOsm/kg (285-295); Sodium 141 mmol/L (136-145); Total Bilirubin 0.2 mg/dL (0.15-1.2); Total Protein 5.8 g/dL (6.6-8.7)
[2021-05-29 12:45] LABS: Iron 49 ug/dL (37-145); Percent Saturation 23.2 % (20-50); Total Iron Binding Capacity 211 mcg/dl; Unsaturated Iron Binding 162 ug/dL (112-347)
[2021-05-29 12:46] LABS: Procalcitonin 0.05 ng/mL (0-0.5)
[2021-05-29] MEDS: gemfibrozil 600 mg Tablet PO (13:02)
[2021-05-29] MEDS: cefTRIAXone 1,000 MG in sodium chloride 0.9% (plus) 50 ML 100 MG IV (13:03)
[2021-05-29 17:16] LABS: Glucose Point of Care 159 mg/dL (70-110)
--- NOTE | 2021-05-29 17:32 | P.PN_ITS ---
Subjective Subjective: Interval history: Admitted overnight. Examination patient and comfortably in bed, alert oriented, saturating 96% on room air. Denies any further nausea vomiting, headache, dizziness. Has remained bradycardic with heart rate running in the mid 50s since admission. Has remained hemodynamically stable. Vitals/I&O/Wt Last Vital Signs Temp 97.7 F 05/29/21 16:00 Pulse 53 L 05/29/21 16:00 Resp 16 05/29/21 16:00 BP 105/57 05/29/21 16:00 Pulse Ox 98 05/29/21 16:00 05/29/21 05/29/21 05/29/21 06:59 14:59 22:59 Intake Total 286 / 286 Balance 286 / 286 Weight last 48 hrs Weight 66.497 kg Weight 68.039 kg Physical Exam Narrative: EXAM NARRATIVE: General : Alert, Awake oriented x3 HEENT; Grossly unremarkable CVS: NSR Chest: Non-labored respiration Abd: non-distended Ext; No edema Data : 05/29/21 11:36 05/29/21 11:36 Micro: Microbiology 05/29/21 11:36 Blood Culture - Preliminary Blood SPECIMEN COLLECTED 05/29/21 11:50 Blood Culture - Preliminary Blood SPECIMEN COLLECTED A&P Assessment and plan (1) Syncope and collapse: Status: Acute (2) Acute UTI: Status: Acute (3) Elevated troponin: Status: Acute Additional A&P Information Syncopal event: Unclear etiology. CT head negative on admission. Check orthostatic. Echocardiogram, carotid Dopplers. Could be secondary to UTI versus ongoing bradycardia. Continue with telemetry. Patient might require event monitor on discharge. Continue to hold off on home dose of metoprolol. Check HbA1c, lipid panel. Continue with home dose of aspirin, statin, gemfibrozil. Elevated Troponin: Chest pain free Treatment as above. Urinary tract infection: Was on Macrobid as an outpatient. Continue with IV ceftriaxone. Will monitor for urine culture and de-escalate antibiotics accordingly. Diabetes mellitus HbA1c 5.1. Insulin sliding scale. Most likely patient will not require any OHS on discharge Lovenox for DVT prophylaxis. Protonix for PUD prophylaxis. Regular cardiac diet Attestations Medical Necessity Statement*: Sara Santoyo is being changed to inpatient status as stay will now exceed 2 midnights. Ongoing hospital care is necessary for UTI, syncope under evaluation Time Spent in Patient Care: Greater than 35 minutes Coding Level of Care Code Acute Pitch Worker for [facility] Fwd Diagnoses Syncope and collapse R55 Acute UTI N39.0 Elevated troponin R77.8
[2021-05-29 20:25] LABS: Glucose Point of Care 116 mg/dL (70-110)
--- NOTE | 2021-05-29 20:47 | PC.NURSE ---
reported low pulse 56 to nurse
[2021-05-30] VITALS (7 sets, daily range): BP systolic 104–162; BP diastolic 59–81; PULSE 50–60; RESP 16–17; TEMP 36.3–37.2; O2SAT 96–100
--- NOTE | 2021-05-30 00:31 | PC.NURSE ---
i reported low pulse 58 to nurse
--- NOTE | 2021-05-30 03:12 | PC.NURSE ---
i reported low pulse 59 to nurse
[2021-05-30] MEDS: enoxaparin 40 mg/0.4 mL Syringe SUBCUT (05:01)
[2021-05-30 05:57] LABS: Basophils % 0.4 %; Eosinophils # 0.1 10^3/uL (0.0-0.8); Eosinophils % 2.7 %; Hematocrit 34.2 % (37.0-47.0); Hemoglobin 10.7 g/dL (11.5-15.3); Lymphocytes # 1.9 10^3/uL (0.8-4.8); Lymphocytes % 40.7 %; Mean Corpuscular HGB Conc 31.3 g/dL (30.0-36.0); Mean Corpuscular Volume 95.8 fl (81-99); Monocytes # 0.3 10^3/uL (0.2-0.9); Monocytes % 6.1 %; Neutrophils # 2.36 10^3/uL (1.8-7.7); Neutrophils % 49.9 %; Nucleated Red Blood Cells % 0 %; Platelet Count 145 10^3/cmm (130-400); Red Blood Count 3.57 10^6/uL (4.1-5.3); Red Cell Distribution Width 12.7 % (12.1-15.1); White Blood Count 4.7 10^3/uL (4.0-10.0)
[2021-05-30 06:25] LABS: Alanine Aminotransferase 11 U/L (0-33); Albumin Level 3.2 g/dL (3.5-5.2); Alkaline Phosphatase 42 IU/L (35-105); Anion Gap 12.3 (5-19); Aspartate Amino Transferase 15 U/L (0-32); Blood Urea Nitrogen 20 mg/dL (8-23); Calcium 8.7 mg/dL (8.5-10.5); Carbon Dioxide 22 mmol/L (22-29); Chloride 112 mmol/L (98-107); Chol HDL Ratio 2.66 mg/dL (0.0-4.40); Cholesterol 109 mg/dL (0-200); Globulin 2.4 g/dL (1.3-4.6); Glucose 76 mg/dL (65-115); HDL Cholesterol 41 mg/dL (60-100); LDL Cholesterol Calculated 42 mg/dL (50-129); Magnesium 1.8 mg/dL (1.7-2.3); Osmolality Calculated 295 mOsm/kg (285-295); Potassium 4.3 mmol/L (3.5-5.1); Sodium 142 mmol/L (136-145); Total Bilirubin 0.2 mg/dL (0.15-1.2); Total Protein 5.6 g/dL (6.6-8.7); Triglycerides 131 mg/dL (0-150); VLDL Cholestrol Calculation 26 mg/dL (0-30)
[2021-05-30 06:53] LABS: Glucose Point of Care 80 mg/dL (70-110)
[2021-05-30] MEDS: gemfibrozil 600 mg Tablet PO (08:11)
[2021-05-30] MEDS: atorvastatin 40 mg Tablet 20 MG PO (08:11)
[2021-05-30] MEDS: lisinopril 20 mg Tablet 40 MG PO (08:11)
[2021-05-30] MEDS: aspirin 81 mg Chew Tablet PO (08:11)
--- NOTE | 2021-05-30 10:37 | PC.CHAP ---
Pastoral Care Encounter/Spiritual Assessment Type of Contact [] Declined talent sourcing specialist visit [] Patient/Family/Request visit [] Outpatient visit [] Follow-up visit [] Physician referral [] Code/Alert [] Routine visit [] Staff referral [] Actively dying [] Patient sleeping [] Family support [] [] Out of room [] Palliative care [] [x] Receiving care in room [] Pre-surgical visit [] Trauma [] Long length of stay [] ICU visit [] Other: Relational/Emotional Strength [] Patient feels connected with others/family/visitors/staff [] Distress [] Loneliness/isolation [] Abandonment Spirituality of Patient [] Person of Felicitas [] Attends Judaism of their Felicitas [] Believes in Prayer [] Reads Bible or Scientologist materials [] There are Spiritual issues to be addressed Toe Pounder Interventions [] Prayer [] Active listening [] Non-anxious presence [] Spiritual/emotional support [] Crisis/trauma care [] Spiritual counseling [] Bereavement support [] Provided bereavement packet [] Provided Bible/devotional materials [] Provided toy/stuffed animal, coloring book to patient or family member [] Provided Communion [] Anointing/[place] [] Salvation [] Completed spiritual assessment [] Other: Impact on Illness or Injury [] Angry [] Fearful [] Anxious [] Often cries [] Exhaustion [] Unable to work [] Unable to attend spiritism [] Unable to walk/stand [] Unable to read [] Unable to drive [] Unable to eat/drink [] Unable to sleep [] Unable to be with family [] Patient intubated [] Other: Summary Time spent with patient
[2021-05-30] MEDS: sodium chloride 0.9% 1,000 ML 75 ML IV (10:42)
[2021-05-30 10:44] LABS: Glucose Point of Care 187 mg/dL (70-110)
[2021-05-30] MEDS: cefTRIAXone 1,000 MG in sodium chloride 0.9% (plus) 50 ML 100 MG IV (11:19)
--- NOTE | 2021-05-30 14:06 | PM.PN ---
Subjective Subjective: Interval history: No acute event overnight. Patient states she is feeling a lot better. Denies any further dizziness. States dysuria has improved. Still having episodes of bradycardia on telemetry with heart rate going down to low 50s. Vitals/I&O/Wt Last Vital Signs Temp 98.9 F 05/30/21 07:28 Pulse 53 L 05/30/21 07:28 Resp 16 05/30/21 07:28 BP 150/71 05/30/21 07:28 Pulse Ox 98 05/30/21 07:28 05/29/21 05/30/21 05/30/21 22:59 06:59 14:59 Intake Total 1240 / 1526 1530 / 1530 Balance 1240 / 1526 1530 / 1530 Weight last 48 hrs Weight 68.356 kg Weight 66.497 kg Weight 68.039 kg Physical Exam Narrative: EXAM NARRATIVE: General : Alert, Awake oriented x3 HEENT; Grossly unremarkable CVS: NSR Chest: Non-labored respiration Abd: non-distended Ext; No edema Data : 05/30/21 05:35 05/30/21 05:35 Micro: Microbiology 05/29/21 13:10 MRSA Culture - Final Nose 05/29/21 11:36 Blood Culture - Preliminary Blood NEGATIVE TO DATE 05/29/21 11:50 Blood Culture - Preliminary Blood NEGATIVE TO DATE 05/28/21 20:25 Urine Culture - Preliminary Urine,Voided Gram Negative Rods A&P Assessment and plan (1) Syncope and collapse: Status: Acute (2) Acute UTI: Status: Acute (3) Elevated troponin: Status: Acute (4) Symptomatic sinus bradycardia: Status: Acute Additional A&P Information Syncopal event: Most likely secondary to a combination of bradycardia and UTI Orthostatics negative, echocardiogram and carotid Doppler results appreciated. Continue with telemetry. Patient might require event monitor on discharge. Continue to hold off on home dose of metoprolol. A1c, lipid panel results appreciated. Continue with home dose of aspirin, gemfibrozil. Decrease home dose of statin Elevated Troponin: Chest pain free Treatment as above. Urinary tract infection: Urine culture consistent with gram-negative rods. Was on Macrobid as an outpatient. Continue with IV ceftriaxone. Will monitor for urine culture and de-escalate antibiotics accordingly. Diabetes mellitus HbA1c 5.1. Insulin sliding scale. Most likely patient will not require any OHS on discharge Lovenox for DVT prophylaxis. Protonix for PUD prophylaxis. Regular cardiac diet Stop IV fluids Attestations Medical Necessity Statement*: Requires further hospitalization for management of UTI, bradycardia leading to presyncope Time Spent in Patient Care: Greater than 35 minutes (>than 50% of time spent in counselling and/or direct pt care on unit). Coding Level of Care Code Acute Tool And Die Maker Level Five for [facility] Fwd Diagnoses Syncope and collapse R55 Acute UTI N39.0 Elevated troponin R77.8 Symptomatic sinus bradycardia R00.1
[2021-05-30 17:08] LABS: Glucose Point of Care 203 mg/dL (70-110)
[2021-05-30 21:18] LABS: Glucose Point of Care 112 mg/dL (70-110)
[2021-05-31] VITALS: BP 160/79; PULSE 64; RESP 17; TEMP 36.6; O2SAT 98
[2021-05-31 04:00] VITALS: BP 136/69; PULSE 56; RESP 17; TEMP 36.6; O2SAT 99
[2021-05-31] MEDS: enoxaparin 40 mg/0.4 mL Syringe SUBCUT (04:05)
--- NOTE | 2021-05-31 04:34 | PC.NURSE ---
i reported low pulse 56 to nurse
[2021-05-31 05:09] LABS: Basophils % 0.6 %; Eosinophils # 0.2 10^3/uL (0.0-0.8); Eosinophils % 3.2 %; Hematocrit 34.8 % (37.0-47.0); Hemoglobin 10.9 g/dL (11.5-15.3); Lymphocytes # 1.7 10^3/uL (0.8-4.8); Mean Corpuscular HGB Conc 31.3 g/dL (30.0-36.0); Mean Corpuscular Hemoglobin 29.5 pg (28.0-34.0); Mean Corpuscular Volume 94.3 fl (81-99); Mean Platelet Volume 9.6 fL (7.4-10.4); Monocytes # 0.3 10^3/uL (0.2-0.9); Monocytes % 6.2 %; Neutrophils # 2.45 10^3/uL (1.8-7.7); Neutrophils % 52.8 %; Nucleated Red Blood Cells % 0 %; Platelet Count 155 10^3/cmm (130-400); Red Blood Count 3.69 10^6/uL (4.1-5.3); Red Cell Distribution Width 12.7 % (12.1-15.1); White Blood Count 4.7 10^3/uL (4.0-10.0)
[2021-05-31 05:42] LABS: Alanine Aminotransferase 19 U/L (0-33); Albumin Level 3.2 g/dL (3.5-5.2); Alkaline Phosphatase 43 IU/L (35-105); Anion Gap 11.9 (5-19); Aspartate Amino Transferase 19 U/L (0-32); Blood Urea Nitrogen 13 mg/dL (8-23); Calcium 8.5 mg/dL (8.5-10.5); Carbon Dioxide 22 mmol/L (22-29); Chloride 112 mmol/L (98-107); Globulin 2.5 g/dL (1.3-4.6); Glucose 77 mg/dL (65-115); Osmolality Calculated 293 mOsm/kg (285-295); Potassium 3.9 mmol/L (3.5-5.1); Sodium 142 mmol/L (136-145); Total Bilirubin 0.2 mg/dL (0.15-1.2); Total Protein 5.7 g/dL (6.6-8.7)
[2021-05-31 06:00] VITALS: PULSE 64
[2021-05-31 06:46] LABS: Glucose Point of Care 86 mg/dL (70-110)
[2021-05-31 07:52] VITALS: BP 154/71; PULSE 58; RESP 15; TEMP 36.7; O2SAT 97
[2021-05-31] MEDS: gemfibrozil 600 mg Tablet PO (08:15)
[2021-05-31] MEDS: lisinopril 20 mg Tablet 40 MG PO (08:15)
[2021-05-31] MEDS: atorvastatin 40 mg Tablet 20 MG PO (08:17)
[2021-05-31] MEDS: aspirin 81 mg Chew Tablet PO (08:18)
--- NOTE | 2021-05-31 09:59 | PC.CHAP ---
Pastoral Care Encounter/Spiritual Assessment Type of Contact [] Declined train director visit [] Patient/Family/Request visit [] Outpatient visit [] Follow-up visit [] Physician referral [] Code/Alert [X] Routine visit [] Staff referral [] Actively dying [] Patient sleeping [] Family support [] [] Out of room [] Palliative care [] [] Receiving care in room [] Pre-surgical visit [] Trauma [] Long length of stay [] ICU visit [] Other: Relational/Emotional Strength [X] Patient feels connected with others/family/visitors/staff [] Distress [] Loneliness/isolation [] Abandonment Spirituality of Patient [X] Person of Felicitas [X] Attends Advent of their Felicitas [X] Believes in Prayer [] Reads Bible or Religion materials [] There are Spiritual issues to be addressed X Ray Equipment Mechanic Interventions [X] Prayer [X] Active listening [X] Non-anxious presence [] Spiritual/emotional support [] Crisis/trauma care [] Spiritual counseling [] Bereavement support [] Provided bereavement packet [] Provided Bible/devotional materials [] Provided toy/stuffed animal, coloring book to patient or family member [] Provided Communion [] Anointing/[place] [] Salvation [X] Completed spiritual assessment [] Other: Impact on Illness or Injury [] Angry [] Fearful [] Anxious [] Often cries [] Exhaustion [] Unable to work [] Unable to attend yazidism [] Unable to walk/stand [] Unable to read [] Unable to drive [] Unable to eat/drink [] Unable to sleep [] Unable to be with family [] Patient intubated [] Other: Summary PATIENT GOING HOME Time spent with patient 10 MIN
[2021-05-31] MEDS: cefTRIAXone 1,000 MG in sodium chloride 0.9% (plus) 50 ML 100 MG IV (11:05)
[2021-05-31 11:08] LABS: Glucose Point of Care 176 mg/dL (70-110)
[2021-05-31 11:10] VITALS: BP 160/76; PULSE 67; RESP 16; TEMP 36.6; O2SAT 99
--- NOTE | 2021-05-31 12:58 | P.DS_ITS ---
Discharge Providers Date of Admission: 05/29/21 11:14 Date of Discharge: May 31, 2021 Attending Provider at Admission: Davina Clark Attending Provider at Discharge: Stevo Kovacs MD Primary Care Provider: Dayday Chandler DO Diagnoses at Discharge Discharge Diagnosis (1) Syncope and collapse: Status: Acute (2) Acute UTI: Status: Acute (3) Elevated troponin: Status: Acute (4) Symptomatic sinus bradycardia: Status: Acute Reason for Visit Reason for Visit: SYNCOPED Hospital Course Hospital Course 85-year-old female with past medical history significant for hypertension, hyperlipidemia, and diabetes mellitus who presented to the hospital after had a syncopal episode. Patient stated she was walking in her yard when all the sudden she passed out. She does not recall having any symptoms prior to event. No head trauma, chest pain or dyspnea after. Noted similar event in the past etiology of which was not known. Laboratory workup in emergency room showed a WBC of 6.7, hemoglobin 10.5, hematocrit 34.9 and a platelet count of 138. Sodium 138, potassium 4.5, chloride 107, bicarb 20, BUN 24 and creatinine 1.0. Magnesium of 1.6. AST of 15, ALT of 11 alkaline phosphatase of 50. Troponin T baseline of 15, 19.1 at 2 hr and 29.96 at 6hr. UA showed positive nitrates, 2+ leukocyte esterase and 40-[address] did not show any evidence of acute abnormality and chest x-ray which also did not show any acute findings. Patient went to the hospital for further work-up of syncope. During hospitalization she was found to have UTI with UA concerning and urine culture growing gram-negative rods. She was started on broad-spectrum antibiotics. Her antihypertensives were withheld. Orthostatics were checked which were negative. On monitoring and evaluation advisor she was found to have significant bradycardia with heart rate going down to high 40s with gradually improved on withholding metoprolol. Patient did not have any further symptoms. She is been discharged in hemodynamically stable condition with event monitor with advised to follow-up with Dr. Parra in cardiology for further management. She is advised to follow-up with her primary care provider within next 1 week with blood pressure diary for further adjustment of antihypertensives. She is to take levofloxacin for 3 more days to finish the course of antibiotics for UTI. Amlodipine 5 mg has been added to her medication list. Physical Exam Narrative: EXAM NARRATIVE: General : Alert, Awake oriented x3 HEENT; Grossly unremarkable CVS: NSR Chest: Non-labored respiration Abd: non-distended Ext; No edema Discharge Data Data Completed and Pending: Completed Studies During Hospitalization Category Date Time Status CT head wo con* [id number] Urgent Cat Scan 05/28/21 19:41 Completed XR chest 1V nikko ble [id number] Urgent Exams 05/28/21 19:41 Completed CV carotid duplex BI* [id number] Routine Ultrasound 05/29/21 11:14 Completed CV. echo complete * [id number] Routine Ultrasound 05/29/21 04:30 Completed Pending at discharge Category Date Time Status Blood Culture Sta t Lab 05/29/21 11:36 Results Urine Culture Sta t Lab 05/28/21 20:25 Results Labs from last 24 hours 05/31/21 05/31/21 05/31/21 11:04 06:31 04:40 WBC RBC Hgb Hct MCV MCH MCHC RDW Plt Count MPV Neut % (Auto) Lymph % (Auto) Faulk % (Auto) Eos % (Auto) Baso % (Auto) Neut # (Auto) Lymph # (Auto) Faulk # (Auto) Eos # (Auto) Baso # (Auto) Nucleated RBC % (a uto) Nucleated RBCs # Sodium 142 Potassium 3.9 Chloride 112 H Carbon Dioxide 22 Anion Gap 11.9 BUN 13 Creatinine 0.9 GFR Calculation Not Reportable Glucose 77 POC Glucose 176 H 86 Calculated Osmolal ity 293 Calcium 8.5 Total Bilirubin 0.2 AST 19 ALT 19 Alkaline Phosphata se 43 Total Protein 5.7 L Albumin 3.2 L Globulin 2.5 05/31/21 05/30/21 05/30/21 04:40 21:07 17:03 WBC 4.7 RBC 3.69 L Hgb 10.9 L Hct 34.8 L MCV 94.3 MCH 29.5 MCHC 31.3 RDW 12.7 Plt Count 155 MPV 9.6 Neut % (Auto) 52.8 Lymph % (Auto) 37.0 Faulk % (Auto) 6.2 Eos % (Auto) 3.2 Baso % (Auto) 0.6 Neut # (Auto) 2.45 Lymph # (Auto) 1.7 Faulk # (Auto) 0.3 Eos # (Auto) 0.2 Baso # (Auto) 0.0 Nucleated RBC % (a uto) 0 Nucleated RBCs # 0.0 Sodium Potassium Chloride Carbon Dioxide Anion Gap BUN Creatinine GFR Calculation Glucose POC Glucose 112 H 203 H Calculated Osmolal ity Calcium Total Bilirubin AST ALT Alkaline Phosphata se Total Protein Albumin Globulin Addt'l Data from Hospital Stay: Laboratory Results WBC 4.7 10^3/uL (4.0- 10.0) 05/31/21 04:40 RBC 3.69 10^6/uL (4.1 -5.3) L 05/31/21 04:40 Hgb 10.9 g/dL (11.5-1 5.3) L 05/31/21 04:40 Hct 34.8 % (37.0-47.0 ) L 05/31/21 04:40 MCV 94.3 fl (81-99) 05/31/21 04:40 MCH 29.5 pg (28.0-34. 0) 05/31/21 04:40 MCHC 31.3 g/dL (30.0-3 6.0) 05/31/21 04:40 RDW 12.7 % (12.1-15.1 ) 05/31/21 04:40 Plt Count 155 10^3/cmm (130 -400) 05/31/21 04:40 MPV 9.6 fL (7.4-10.4) 05/31/21 04:40 Neut % (Auto) 52.8 % 05/31/21 04:40 Lymph % (Auto) 37.0 % 05/31/21 04:40 Faulk % (Auto) 6.2 % 05/31/21 04:40 Eos % (Auto) 3.2 % 05/31/21 04:40 Baso % (Auto) 0.6 % 05/31/21 04:40 Neut # (Auto) 2.45 10^3/uL (1.8 -7.7) 05/31/21 04:40 Lymph # (Auto) 1.7 10^3/uL (0.8- 4.8) 05/31/21 04:40 Faulk # (Auto) 0.3 10^3/uL (0.2- 0.9) 05/31/21 04:40 Eos # (Auto) 0.2 10^3/uL (0.0- 0.8) 05/31/21 04:40 Baso # (Auto) 0.0 10^3/uL (0.0- 0.1) 05/31/21 04:40 Nucleated RBC % (a uto) 0 % 05/31/21 04:40 Nucleated RBCs # 0.0 /100WBC 05/31/21 04:40 Sodium 142 mmol/L (136-1 45) 05/31/21 04:40 Potassium 3.9 mmol/L (3.5-5 .1) 05/31/21 04:40 Chloride 112 mmol/L (98-10 7) H 05/31/21 04:40 Carbon Dioxide 22 mmol/L (22-29) 05/31/21 04:40 Anion Gap 11.9 (5-19) 05/31/21 04:40 BUN 13 mg/dL (8-23) 05/31/21 04:40 Creatinine 0.9 mg/dL (0.5-0. 9) 05/31/21 04:40 GFR Calculation Not Reportable 05/31/21 04:40 Glucose 77 mg/dL (65-115) 05/31/21 04:40 POC Glucose 176 mg/dL (70-110 ) H 05/31/21 11:04 Estimat Average Gl ucose 100 05/29/21 11:36 Hemoglobin A1c 5.1 % (4.0-6.0) 05/29/21 11:36 Calculated Osmolal ity 293 mOsm/kg (285- 295) 05/31/21 04:40 Lactate 1.0 mmol/L (0.5-2 .2) 05/28/21 20:10 Calcium 8.5 mg/dL (8.5-10 .5) 05/31/21 04:40 Magnesium 1.8 mg/dL (1.7-2. 3) 05/30/21 05:35 Iron 49 ug/dL (37-145) 05/29/21 11:36 TIBC 211 mcg/dl 05/29/21 11:36 % Saturation 23.2 % (20-50) 05/29/21 11:36 Unsat Iron Binding 162 ug/dL (112-34 7) 05/29/21 11:36 Total Bilirubin 0.2 mg/dL (0.15-1 .2) 05/31/21 04:40 AST 19 U/L (0-32) 05/31/21 04:40 ALT 19 U/L (0-33) 05/31/21 04:40 Alkaline Phosphata se 43 IU/L (35-105) 05/31/21 04:40 Troponin T Baselin e 15 ng/L (0-10) H 05/28/21 19:45 Troponin T 120 Min [place] 19.13 ng/L (0-10) H 05/28/21 22:01 Delta Troponin T 4.13 ABS# (0-10) 05/28/21 22:01 Troponin T Hi Sens 6Hr 29.96 ng/L (0-10) H 05/29/21 01:17 Troponin T Hi Sens 6Hr Delta 14.96 ng/L (0-12) H* 05/29/21 01:17 NT-Pro-B Natriuret Pep 269 pg/mL (0-450) 05/28/21 19:45 Total Protein 5.7 g/dL (6.6-8.7 ) L 05/31/21 04:40 Albumin 3.2 g/dL (3.5-5.2 ) L 05/31/21 04:40 Globulin 2.5 g/dL (1.3-4.6 ) 05/31/21 04:40 Triglycerides 131 mg/dL (0-150) 05/30/21 05:35 Cholesterol 109 mg/dL (0-200) 05/30/21 05:35 LDL Cholesterol, C alc 42 mg/dL (50-129) L 05/30/21 05:35 Total VLDL Cholest roby 26 mg/dL (0-30) 05/30/21 05:35 HDL Cholesterol 41 mg/dL (60-100) L 05/30/21 05:35 Cholesterol/HDL Ra marisol 2.66 mg/dL (0.0-4 .40) 05/30/21 05:35 Procalcitonin 0.05 ng/mL (0-0.5 ) 05/29/21 11:36 TSH 3.17 uIU/mL (0.27 -4.20) 05/28/21 19:45 Urine Color Yellow (Yellow) 05/28/21 20:25 Urine Appearance Sl cloudy (CLEAR ) A 05/28/21 20:25 Urine pH 5 (5-7) 05/28/21 20:25 Ur Specific Gravit y 1.015 (1.005-1.0 30) 05/28/21 20:25 Urine Protein Neg (Negative) 05/28/21 20:25 Urine Glucose (UA) Norm (Normal) 05/28/21 20:25 Urine Ketones Negative (Negati ve) 05/28/21 20:25 Urine Blood 2+ (Negative) H 05/28/21 20:25 Urine Nitrate Positive (Negati ve) H 05/28/21 20:25 Urine Bilirubin Neg (Negative) 05/28/21 20:25 Urine Urobilinogen Norm mg/dL (Negat shraddha) 05/28/21 20:25 Ur Leukocyte Genesis ase 2+ (Negative) H 05/28/21 20:25 Urine RBC 10-15 /hpf (0-2) H 05/28/21 20:25 Urine WBC 40-55 /hpf (0-5) H 05/28/21 20:25 Ur Squamous Epith Cells 5-10 /hpf (0-5) H 05/28/21 20:25 Amorphous Sediment Not Reportable 05/28/21 20:25 Urine Bacteria 4+ /hpf (NONE) H 05/28/21 20:25 Impressions Chest X-Ray 05/28/21 19:41 IMPRESSION: No acute findings. Head CT 05/28/21 19:41 IMPRESSION: 1. Negative for acute intracranial abnormality. 2. No change from comparison. Radiation Dose CTDIVOL = (mGy): DLP = 863.64 (mGy-cm) Microbiology 05/29/21 13:10 Nose MRSA Culture - Final 05/29/21 11:36 Blood Blood Culture - Preliminary NEGATIVE TO DATE 05/29/21 11:50 Blood Blood Culture - Preliminary NEGATIVE TO DATE 05/28/21 20:25 Urine,Voided Urine Culture - Preliminary Gram Negative Rods Vitals: Last Vital Signs Temp 97.9 F 05/31/21 11:10 Pulse 67 05/31/21 11:10 Resp 16 05/31/21 11:10 BP 160/76 05/31/21 11:10 Pulse Ox 99 05/31/21 11:10 Discharge Plan Discharge Patient Disposition: Home Condition: Stable Prescriptions: New amlodipine 5 mg tablet 5 mg PO DAILY Qty: 30 RF: 0 levofloxacin 500 mg tablet 500 mg PO Q24H 3 Days Qty: 3 RF: 0 Continued metformin 500 mg tablet 500 mg PO BID RF: 0 simvastatin 40 mg tablet 40 mg PO DAILY RF: 0 gemfibrozil 600 mg tablet 600 mg PO DAILY RF: 0 lisinopril 40 mg tablet 40 mg PO DAILY RF: 0 Discontinued metoprolol succinate 50 mg tablet extended release 24 hr 50 mg PO DAILY RF: 0 No Action aspirin 81 mg Tablet,Chewable 81 mg PO DAILY RF: 0 Discharge Orders: Discharge Order (Routine); Ordered 05/31/21 Ordered By: Stevo Kovacs Other Ambulatory Orders: [place] cardiac event monitor (Routine) Timeframe: 1 Day Facility: [facility] - Location: Cardiac Diagnostic Laboratory Ordered By: Stevo Kovacs Referrals: Humberto Parra MD [Physician] - 2 weeks (Symptomatic bradycardia, post cardiac event monitor) Dayday Chandler DO [Primary Care Provider] - 7-10 days Discharge Diet: Cardiac Discharge Activity: Resume usual activity Patient Instructions: Nitrofurantoin Macrocrystals (By mouth), Urinary Tract Infection in Women (ED), Syncope (ED), Opioid Safety Activity Restrictions/Additional Instructions: Metoprolol has been stopped. Amlodipine 5 mg has been added to your medication list. Please check your blood pressure twice daily and maintain a blood pressure diary and follow-up with your primary care provider within next 1 week for further adjustment of antihypertensives. Please follow-up with cardiology with event monitor for further recommendations for bradycardia. Please take levofloxacin for 3 more days to finish a course of antibiotics for UTI. Discharge Attestations Time Spent in Discharge Care*: greater than 30 min Specific Discharge Activities: educating patient, educating and/or supporting family/caregiver, discussing with pcp/other providers, discussing with top case assembler/social workers/dc planners, documenting/other paperwork and evaluating patient/reviewing data Status at Discharge: Cognitive status at discharge: mildly impaired cognition , Behavioral status at discharge: cooperative , Functional status at discharge: independent ambulation Overall status at discharge: patient is back to baseline Quality Metrics Clinical Quality Measures During this hospital stay, did patient experience: None Coding Level of Care Code Acute Chg FW DC note Diagnoses Syncope and collapse R55 Acute UTI N39.0 Elevated troponin R77.8 Symptomatic sinus bradycardia R00.1
--- NOTE | 2021-06-01 09:39 | PC.SOCIAL ---
discharge follow up call made, spoke with patient and her daughter. patient reports she is feeling good denies chest pain or sob. daughter is checking pts b/p twice daily and keeping a log. patient picked up levofloxacin and amlodipine from the pharmacy and she is taking as directed. [facility] of event monitor. patient is aware of follow up appointment with pcp on 06-08. patient and daughter both denies questions or concerns.
== END 2021-05-31 13:40 | disposition home or self-care (01) | DRG 690 ==
LOC: ER 05-29 02:41 → MEDSURG 05-29 02:57
PROVIDERS: Emergency Medicine; Admitting Provider Hospitalist; Emergency Provider Emergency Medicine; PCP Electrodiagnostic Medicine; Visit Provider Student in an Organized Health Care Education/Training Program
DX: N39.0 Urinary tract infection, site not specified (principal); R55 Syncope and collapse; I10 Essential (primary) hypertension; E78.5 Hyperlipidemia, unspecified; E11.9 Type 2 diabetes mellitus without complications; R00.1 Bradycardia, unspecified; Z79.84 Long term (current) use of oral hypoglycemic drugs
CPT/HCPCS: 36415; 36416; 70450; 71045; 80053; 80061; 81001; 82962; 83036; 83540; 83550; 83605; 83735; 83880; 84145; 84443; 84484; 85025; 87040; 87077; 87086; 87186; 87641; 93005; 93306; 93880; 96365; 96367; 96372; 97116; 97161; 99285; G0378; J0696; J1650; J1815 ×2; J3475; J7030

== ENCOUNTER 2021-07-25 08:28 | Outpatient (CLI) | payer MEDICARE, MEDICAID, SELFPAY ==
[2021-07-25 08:46] VITALS: BMI 23.4
--- NOTE | 2021-07-25 09:00 | NMCV_ITS ---
NM lynn perf SPECT r/s* [id number] Sara Santoyo Age: 85 Gender: F : 1935 Exam Date: 07/25/2021 10:17 Ordering Phys: Humberto Parra MD ([email or web address]) Technologist: HARJEET Gallo Exam Location: [facility] Indications: SHORTNESS OF BREATH STRESS TEST Please [facility] for full findings IMAGE PROTOCOL Rest/Stress 1 Lexiscan Day Radiopharmaceutical Dose (mCi) Administration Site Administered by Rest: Tc-99m 10.7 IV HARJEET Gallo Sestamibi Stress:Tc-99m 32.7 IV HARJEET Fitzpatrick Sestamibi Rest: 25-Jul-2021 60 Discovery 630 Stress: 25-Jul-2021 30 Discovery 630 0.4mg Lexiscan. Images obtained in supine and prone position. SPECT RESULTS Technical Quality: Excellent Raw Data Analysis: Normal Image Corrections: No attenuation or motion correction applied Summed Stress Score: 11 Summed Rest Score: 15 Summed Difference Score: 0 PERFUSION FINDINGS Moderate area of severely decreased tracer uptake in the inferior wall, inferolateral and apical regions. No significant reversibility was noted in these regions FUNCTIONAL RESULTS (calculated via Gated SPECT) Stress Image LV EF (%): 86 Stress EDV (mL):69 TID: 0.95 Stress ESV (mL):10 FUNCTIONAL FINDINGS: Segmental wall motion analysis revealing no gross wall motion normalities. IMPRESSIONS 1. Myocardial perfusion imaging revealing moderate area of persistent decreased tracer uptake in the inferior, inferoseptal and apical regions, most likely represent attenuation artifacts. 2. Normal LV ejection fraction of 86%. 3. LV wall motion analysis revealing no gross wall motion abnormalities. 4. Normal LV volume No significant coronary ischemia, based on the above findings Dr Humberto Parra MD [facility] (Electronically Signed) Final Date: 25 July 2021 21:04 S
--- NOTE | 2021-07-25 09:00 | ECG_ITS ---
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 Interpretive Statements NAME OF STUDY: LEXISCAN SESTAMIBI STRESS TEST INDICATION: ELEVATED TROPONIN, SYNCOPE/RESULTS TO ALEX BOWIE PROCEDURE: At the baseline, the EKG revealed normal sinus rhythm with left anterior fascicular block. Right bundle branch block. Possible old septal MD. The baseline blood pressure was 142/64 mm Hg with a heart rate of 75 beats/min. Lexiscan was infused over a period of 20 seconds. A total of 0.4 milligrams of Lexiscan was infused. The stress phase was continued for a total of 5 minutes. Heart rate at the end of the stress phase was 89 with a blood pressure 132/53. The EKG at the peak infusion revealed no significant changes. Sestamibi was injected 20 seconds after the Lexiscan infusion. Blood pressure at the end of the recovery phase was 128/60 with a heart rate of 69 per minute. CONCLUSION: 1. No significant EKG changes with the LexiScan infusion 2. No LexiScan induced chest pain or cardiac arrhythmia 3. Normal blood pressure and heart rate response 4. Sestamibi/sestamibi perfusion scan pending; see separate report. Electronically Signed On 07-28-2021 11:07:01 PEER FINANCIAL COUNSELOR by Humberto Parra M.D. [id number]
[2021-07-25] MEDS: regadenoson 0.4 Mg/5 ml Syringe IVP (11:12)
[2021-07-25 11:43] VITALS: BP 128/62; PULSE 78
== END 2021-07-25 08:29 | disposition home or self-care (01) ==
LOC: CDL 08:32
PROVIDERS: PCP Electrodiagnostic Medicine; Visit Provider Internal Medicine Cardiovascular Disease
DX: R79.89 Other specified abnormal findings of blood chemistry (principal); R55 Syncope and collapse
CPT/HCPCS: 78452; 93017; A9500; J2785

== ENCOUNTER 2021-08-21 16:44 | Emergency (ER) | payer MEDICARE, MEDICAID, SELFPAY ==
--- NOTE | 2021-08-21 16:56 | XRR_ITS ---
PROCEDURE INFORMATION: Exam: XR Chest Exam date and time: 08/21/2021 4:56 PM Age: 85 years old Clinical indication: Other: Weakness, syncope; Additional info: Weakness, falls TECHNIQUE: Imaging protocol: XR of the chest. Views: 1 view. COMPARISON: CR XR chest 1V portable [id number] 05/28/2021 7:55 PM FINDINGS: Lungs: Subtle ground-glass opacities in the medial right and peripheral lung bases. No consolidation. The upper lung zones are clear. Pleural spaces: Unremarkable. No pleural effusion. No pneumothorax. Heart/Mediastinum: Unremarkable. No cardiomegaly. Bones/joints: Unremarkable. XR/XR chest 1V portable [id number] IMPRESSION: 1. Opacities in the lung bases could represent pneumonia.
--- NOTE | 2021-08-21 16:57 | CTR_ITS ---
PROCEDURE INFORMATION: Exam: CT Head Without Contrast Exam date and time: 08/21/2021 4:57 PM Age: 85 years old Clinical indication: Injury or trauma; Fall; Blunt trauma (contusions or hematomas); Weakness, extremity; Bilateral; Additional info: Syncope, AMS TECHNIQUE: Imaging protocol: Computed tomography of the head without contrast. Radiation optimization: All CT scans at this facility use at least one of these dose optimization techniques: automated exposure control; mA and/or kV adjustment per patient size (includes targeted exams where dose is matched to clinical indication); or iterative reconstruction. COMPARISON: CT head wo con* [id number] 05/28/2021 8:27 PM RADIATION DOSE METRICS: Total DLP (mGy-cm): 852.02 FINDINGS: Brain: Mild diffuse cortical volume loss. Mild hypodensities in supratentorial periventricular and subcortical white matter, consistent with microangiopathy. No intracranial hemorrhage. Cerebral ventricles: No ventriculomegaly. Paranasal sinuses: Mucosal thickening in the ethmoid and sphenoid sinuses. The other sinuses are clear. Mastoid air cells: Visualized mastoid air cells are well aerated. Vasculature: No hyperdense artery. Bones/joints: Unremarkable. No acute fracture. Soft tissues: Unremarkable. CT/CT head wo con* [id number] IMPRESSION: 1. No acute intracranial abnormality.
[2021-08-21 18:19] VITALS: BP 136/74; PULSE 77; RESP 20; O2SAT 100; BMI 19.8
[2021-08-21 20:32] LABS: Hematocrit 36.3 % (37.0-47.0); Hemoglobin 11.5 g/dL (11.5-15.3); Lymphocytes # 1.3 10^3/uL (0.8-4.8); Lymphocytes % 40.8 %; Mean Corpuscular HGB Conc 31.7 g/dL (30.0-36.0); Mean Corpuscular Hemoglobin 29.5 pg (28.0-34.0); Mean Corpuscular Volume 93.1 fl (81-99); Mean Platelet Volume 9.3 fL (7.4-10.4); Monocytes # 0.2 10^3/uL (0.2-0.9); Monocytes % 6.9 %; Neutrophils # 1.67 10^3/uL (1.8-7.7); Nucleated Red Blood Cells % 0 %; Platelet Count 131 10^3/cmm (130-400); Red Cell Distribution Width 12.8 % (12.1-15.1); White Blood Count 3.2 10^3/uL (4.0-10.0)
[2021-08-21 20:45] LABS: Glucose Point of Care 81 mg/dL (70-110)
--- NOTE | 2021-08-21 20:45 | PC.NURSE ---
FS 81 mg/dl family concerned for low glucose.
[2021-08-21 21:00] LABS: Alanine Aminotransferase 11 U/L (0-33); Albumin Level 3.9 g/dL (3.5-5.2); Alkaline Phosphatase 52 IU/L (35-105); Anion Gap 18.4 (5-19); Aspartate Amino Transferase 21 U/L (0-32); Blood Urea Nitrogen 26 mg/dL (8-23); Calcium 8.3 mg/dL (8.5-10.5); Carbon Dioxide 20 mmol/L (22-29); Chloride 106 mmol/L (98-107); Globulin 3.1 g/dL (1.3-4.6); Glucose 80 mg/dL (65-115); Osmolality Calculated 294 mOsm/kg (285-295); Potassium 4.4 mmol/L (3.5-5.1); Sodium 140 mmol/L (136-145); Total Bilirubin 0.2 mg/dL (0.15-1.2)
[2021-08-21 21:15] LABS: Troponin(5th) Baseline 21 ng/L (0-10)
--- NOTE | 2021-08-21 22:57 | ECG_ITS ---
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 Measurements Intervals Manter Rate: 71 P: 66 SC: 203 QRS: -66 QRSD: 134 T: 66 QT: 408 QTc: 445 Interpretive Statements SINUS RHYTHM RIGHT BUNDLE BRANCH BLOCK [120+ ms QRS DURATION, UPRIGHT V1, 40+ ms S IN I/aVL/V4/V5/V6] LEFT ANTERIOR FASCICULAR BLOCK [QRS AXIS <= -45, QR IN I, RS IN II] POSSIBLE SEPTAL MYOCARDIAL INFARCTION , OF INDETERMINATE AGE [30 ms Q WAVE IN V1/V2] Compared to ECG 05/29/2021 04:16:07 Right bundle-branch block now present Left anterior fascicular block now present Atrial fibrillation no longer present Myocardial infarct finding still present Electronically Signed On 08-23-2021 0:09:08 PSYCHIATRIC THERAPIST by Humberto Parra M.D. [email or web address]
--- NOTE | 2021-08-22 00:45 | W.ED.GENADLT ---
HPI - General Adult General: Chief complaint: General Medical Stated complaint: FREQUENT FALLS/DEHYDRATED/DISORIENTED Time Seen by Provider: 08/22/21 00:20 Source: patient and family Mode of arrival: ambulatory Limitations: no limitations History of Present Illness: HPI narrative: 85-year-old female who is here with family states that over the last 3 to 4 days she has had increased weakness and had a fall yesterday. States she is just felt very fatigued had decreased appetite and does not feel like eating. States she is also a slight cough and congestion. Triage note says confusion she has no confusion here is able answer all my questions appropriately. Denies any shortness of breath denies any pain anywhere. States she has had symptoms like this before with a urinary tract infection but denies any dysuria denies any vomiting or diarrhea. Associated symptoms: Deny chest pain, headache(s), nausea, rash or vomiting Review of Systems Const: Reports: fatigue Eyes: Denies: blurry vision or eye discomfort ENMT: Denies: throat pain or dental pain Card: Denies: chest pain Resp: Reports: non-productive cough GI: Denies: abdominal pain, nausea, vomiting or diarrhea : Denies: dysuria Musc: Denies: neck pain or back pain Skin/Breast: Denies: rash Neuro: Denies: headache(s) Psych: Denies: depression Valentin/Lymph: Denies: easy bruising All/Imm: Denies: urticaria PFSH ED PFSH: Medical History Diabetes mellitus Hyperlipidemia Hypertension No pertinent family history Surgical History No pertinent past surgical history Family History Son CAD (coronary artery disease) [place] in 30's Mother CAD (coronary artery disease) Diabetes Sister Dementia Daughter Diabetes Denies family history of Clotting disorder Chronic kidney disease (CKD) Suicide Anesthesia complication Bleeding disorder Lung disease Cancer Stroke Social History Smoking and tobacco status: never smoked Alcohol intake: never Physical Exam Const: COMMON NORMALS: no acute distress, patient oriented x3 and healthy appearing HENMT: COMMON NORMALS: normocephalic and atraumatic HEAD & SCALP: normocephalic and atraumatic Eye: COMMON NORMALS: Equal, round and reactive pupils present and EOMs intact bilaterally PUPIL: Yes Equal, round and reactive pupils present Neck/C-Spine: COMMON NORMALS: full ROM and supple Chest: COMMONS NORMALS: normal inspection of the chest and normal palpation of entire chest wall Resp: COMMON NORMALS: normal respiratory effort, No retractions, No use of accessory muscles and clear to auscultation bilaterally AUSCULTATION: clear to auscultation bilaterally Cardio: COMMON NORMALS: regular rate, regular rhythm and No murmurs present (Cardio) RATE: regular rate RHYTHM: regular rhythm GI: COMMON NORMALS: Normal to inspection, nondistended, normoactive bowel sounds present, Soft to palpation, non-tender and no masses PALPATION: Yes Soft to palpation Extremity: COMMON NORMALS: normal to inspection and full ROM Neuro: COMMON NORMALS: patient oriented x3, moves all extremities and no focal motor deficits Psych: COMMON NORMALS: mental status grossly normal, Normal thought process present and cooperative THOUGHT PROCESS: Normal thought process present Skin: COMMON NORMALS: no rashes or lesions noted and no wounds GENERAL SKIN EXAM: no rashes or lesions noted Course Vital Signs: Vital signs: Vital Signs Pulse Rate 76 08/22/21 01:04 Respiratory Rate 18 08/22/21 01:04 Blood Pressure 136/74 08/21/21 18:19 Pulse Oximetry 97 08/22/21 01:04 MDM - General Adult MDM Narrative: Medical decision making narrative: Patient presents here with fatigue likely from her urinary tract infection patient feels improved here blood work here is normal she is requesting go home she is able to tolerate p.o. here we will place her on Keflex along with Zofran she is to follow-up with PCP and return if worsening she understands agrees to plan. Lab Data: Labs: Lab Results 08/21/21 08/21/21 08/21/21 16:57 20:25 20:25 WBC 3.2 10^3/uL L 10^ 3/uL (4.0-10.0) RBC 3.90 10^6/uL L 10 ^6/uL (4.1-5.3) Hgb 11.5 g/dL g/dL (11.5-15.3) Hct 36.3 % L % (37.0-47.0) MCV 93.1 fl fl (81-99) MCH 29.5 pg pg (28.0-34.0) MCHC 31.7 g/dL g/dL (30.0-36.0) RDW 12.8 % % (12.1-15.1) Plt Count 131 10^3/cmm 10^3 /cmm (130-400) MPV 9.3 fL fL (7.4-10.4) Neut % (Auto) 52.0 % % Lymph % (Auto) 40.8 % % Butts % (Auto) 6.9 % % Eos % (Auto) 0.0 % % Baso % (Auto) 0.0 % % Neut # (Auto) 1.67 10^3/uL L 10 ^3/uL (1.8-7.7) Lymph # (Auto) 1.3 10^3/uL 10^3/ uL (0.8-4.8) Butts # (Auto) 0.2 10^3/uL 10^3/ uL (0.2-0.9) Eos # (Auto) 0.0 10^3/uL 10^3/ uL (0.0-0.8) Baso # (Auto) 0.0 10^3/uL 10^3/ uL (0.0-0.1) Nucleated RBC % (a uto) 0 % % Nucleated RBCs # 0.0 /100WBC /100W BC Sodium 140 mmol/L mmol/L (136-145) Potassium 4.4 mmol/L mmol/L (3.5-5.1) Chloride 106 mmol/L mmol/L (98-107) Carbon Dioxide 20 mmol/L L mmol/ L (22-29) Anion Gap 18.4 (5-19) BUN 26 mg/dL H mg/dL (8-23) Creatinine 1.2 mg/dL H mg/dL (0.5-0.9) GFR Calculation Not Reportable Glucose 80 mg/dL mg/dL (65-115) POC Glucose Calculated Osmolal ity 294 mOsm/kg mOsm/ kg (285-295) Calcium 8.3 mg/dL L mg/dL (8.5-10.5) Total Bilirubin 0.2 mg/dL mg/dL (0.15-1.2) AST 21 U/L U/L (0-32) ALT 11 U/L U/L (0-33) Alkaline Phosphata se 52 IU/L IU/L (35-105) Troponin T Baselin e Troponin T 120 Min evan Delta Troponin T Total Protein 7.0 g/dL g/dL (6.6-8.7) Albumin 3.9 g/dL g/dL (3.5-5.2) Globulin 3.1 g/dL g/dL (1.3-4.6) Urine Color Yellow (Yellow) Urine Appearance Hazy A (CLEAR) Urine pH 5 (5-7) Ur Specific Gravit y 1.010 (1.005-1.030) Urine Protein Neg (Negative) Urine Glucose (UA) Norm (Normal) Urine Ketones Negative (Negative) Urine Blood 2+ H (Negative) Urine Nitrate Positive H (Negative) Urine Bilirubin Neg (Negative) Urine Urobilinogen Neg mg/dL mg/dL (Negative) Ur Leukocyte Genesis ase Trace H (Negative) Urine RBC 0-4 /hpf H /hpf (0-2) Urine WBC 5-10 /hpf H /hpf (0-5) Ur Squamous Epith Cells 0-4 /hpf H /hpf (0-5) Amorphous Sediment Not Reportable Urine Bacteria 3+ /hpf H /hpf (NONE) 08/21/21 08/21/21 08/21/21 20:25 20:44 22:16 WBC RBC Hgb Hct MCV MCH MCHC RDW Plt Count MPV Neut % (Auto) Lymph % (Auto) Butts % (Auto) Eos % (Auto) Baso % (Auto) Neut # (Auto) Lymph # (Auto) Butts # (Auto) Eos # (Auto) Baso # (Auto) Nucleated RBC % (a uto) Nucleated RBCs # Sodium Potassium Chloride Carbon Dioxide Anion Gap BUN Creatinine GFR Calculation Glucose POC Glucose 81 mg/dL mg/dL (70-110) Calculated Osmolal ity Calcium Total Bilirubin AST ALT Alkaline Phosphata se Troponin T Baselin e 21 ng/L H ng/L (0-10) Troponin T 120 Min evan 22.60 ng/L H ng/L (0-10) Delta Troponin T 1.60 ABS# ABS# (0-10) Total Protein Albumin Globulin Urine Color Urine Appearance Urine pH Ur Specific Gravit y Urine Protein Urine Glucose (UA) Urine Ketones Urine Blood Urine Nitrate Urine Bilirubin Urine Urobilinogen Ur Leukocyte Genesis ase Urine RBC Urine WBC Ur Squamous Epith Cells Amorphous Sediment Urine Bacteria Imaging Data^: CT Head: Radiologist's impression: [employer] [place] [address] CT Scan Report Signed Patient: Sara Santoyo Unit #: [id number] : 1935 Age/Sex: 85 / F ADM Date: 08/21/21 Loc: ER Room/Bed: Attending Dr: Ordering Provider/Ordering MD: Albina Navas Date of Service: 08/21/21 Procedure(s): CT head wo con* [id number] Accession Number(s): [id number] Report Number: [id number] PROCEDURE INFORMATION: Exam: CT Head Without Contrast Exam date and time: 08/21/2021 4:57 PM Age: 85 years old Clinical indication: Injury or trauma; Fall; Blunt trauma (contusions or hematomas); Weakness, extremity; Bilateral; Additional info: Syncope, AMS TECHNIQUE: Imaging protocol: Computed tomography of the head without contrast. Radiation optimization: All CT scans at this facility use at least one of these dose optimization techniques: automated exposure control; mA and/or kV adjustment per patient size (includes targeted exams where dose is matched to clinical indication); or iterative reconstruction. COMPARISON: CT head wo con* [id number] 05/28/2021 8:27 PM RADIATION DOSE METRICS: Total DLP (mGy-cm): 852.02 FINDINGS: Brain: Mild diffuse cortical volume loss. Mild hypodensities in supratentorial periventricular and subcortical white matter, consistent with microangiopathy. No intracranial hemorrhage. Cerebral ventricles: No ventriculomegaly. Paranasal sinuses: Mucosal thickening in the ethmoid and sphenoid sinuses. The other sinuses are clear. Mastoid air cells: Visualized mastoid air cells are well aerated. Vasculature: No hyperdense artery. Bones/joints: Unremarkable. No acute fracture. Soft tissues: Unremarkable. CT/CT head wo con* [id number] IMPRESSION: 1. No acute intracranial abnormality. Dictated By: Jeffry Rivera Signed By: Jeffry Rivera Signed Date/Time: 08/21/212154 DD/ 56 CXR: Radiologist's impression: [address] [address] XRay Report Signed Patient: Sara Santoyo Unit #: [id number] : 1935 Age/Sex: 85 / F ADM Date: 08/21/21 Loc: ER Room/Bed: Attending Dr: Ordering Provider/Ordering MD: Albina Navas Date of Service: 08/21/21 Procedure(s): XR chest 1V portable [id number] Accession Number(s): [id number] Report Number: [id number] PROCEDURE INFORMATION: Exam: XR Chest Exam date and time: 08/21/2021 4:56 PM Age: 85 years old Clinical indication: Other: Weakness, syncope; Additional info: Weakness, falls TECHNIQUE: Imaging protocol: XR of the chest. Views: 1 view. COMPARISON: CR XR chest 1V portable [id number] 05/28/2021 7:55 PM FINDINGS: Lungs: Subtle ground-glass opacities in the medial right and peripheral lung bases. No consolidation. The upper lung zones are clear. Pleural spaces: Unremarkable. No pleural effusion. No pneumothorax. Heart/Mediastinum: Unremarkable. No cardiomegaly. Bones/joints: Unremarkable. XR/XR chest 1V portable [id number] IMPRESSION: 1. Opacities in the lung bases could represent pneumonia. Dictated By: Jeffry Rivera Signed By: Jeffry Rivera Signed Date/Time: 08/21/211810 DD/ 55 EKG Data^: EKG 1: Attestation: I personally reviewed and interpreted this EKG as follows: EKG interpretation date: 08/22/21 EKG interpretation time: 00:40 Interpretation: nsr hr [address] or t wave abnormalities qrs 134 qtc 431 Computer generated interpretation: Chest X-Ray 08/21/21 16:56 IMPRESSION: 1. Opacities in the lung bases could represent pneumonia. Head CT 08/21/21 16:57 IMPRESSION: 1. No acute intracranial abnormality. Discharge Plan Discharge Patient Disposition: Home Clinical Impression: Acute UTI Condition: Stable Prescriptions: New cephalexin 500 mg capsule 500 mg PO TID 7 Days Qty: 21 RF: 0 ondansetron 4 mg tablet,disintegrating 4 mg PO Q6H PRN (Reason: nausea and vomiting) Qty: 14 RF: 0 No Action amlodipine 10 mg tablet 10 mg PO DAILY 90 Days Qty: 90 RF: 3 atorvastatin [Lipitor] 40 mg tablet 40 mg PO DAILY Qty: 90 RF: 3 metformin 500 mg tablet 500 mg PO BID RF: 0 gemfibrozil 600 mg tablet 600 mg PO DAILY RF: 0 aspirin 81 mg Tablet,Chewable 81 mg PO DAILY RF: 0 lisinopril 40 mg tablet 40 mg PO DAILY RF: 0 Discharge Orders: Discharge ED (Routine); Ordered 08/22/21 Ordered By: Nawaf Man Referrals: Dayday Chandler, [Primary Care Provider] - 1-3 days Discharge Diet: Advance as tolerated Discharge Activity: Resume usual activity Patient Instructions: Urinary Tract Infection in Women (ED) Coding Level of Care Code ED Section Plotter Operator for Sury Fwd Exam Comprehensive
[2021-08-22 01:04] VITALS: PULSE 76; RESP 18; O2SAT 97
[2021-08-22 01:18] LABS: Blood Urine 2+ (Negative); Glucose Urine UA Norm (Normal); Ketones Urine Negative (Negative); Protein Urine Neg (Negative); Urine Appearance Hazy (CLEAR); Urine Color Yellow (Yellow); pH Urine 5 (5-7)
[2021-08-22 01:19] LABS: Add Urine Culture? Yes; Add Urine Microscopic? YES; Bacteria Urine 3+ /hpf; Bilirubin Urine Neg (Negative); Leukocyte Esterase Urine Trace (Negative); Nitrate Urine Positive (Negative); RBC Urine 0-4 /hpf (0-2); Squamous Epithelial Cell Urine 0-4 /hpf (0-5); Urobilinogen Urine Neg (Negative)
[2021-08-22 02:45] LABS: Troponin 5 6HR 23.37 ng/L (0-10); Troponin 5 6HR Delta 2.37 ng/L (0-12)
[2021-08-22] MEDS: cefTRIAXone 1,000 MG in lidocaine 1% 2.1 ML 1 MG IM (03:14)
[2021-08-22 03:17] LABS: Adenovirus Not Detected (NOT DETECT); Chlamydia Pneumoniae Not Detected (NOT DETECT); Coronavirus 229E,HKU1,NL63,OC4 Not Detected (NOT DETECT); Human Metapneumovirus Not Detected (NOT DETECT); Human Rhinovirus/Enterovirus Not Detected (NOT DETECT); Influenza A Not Detected (NOT DETECT); Influenza A H1 Not Detected (NOT DETECT); Influenza A H1-2009 Not Detected (NOT DETECT); Influenza A H3 Not Detected (NOT DETECT); Influenza B Not Detected (NOT DETECT); Mycoplasma Pneumoniae Not Detected (NOT DETECT); Parainfluenza Virus Type 1 Not Detected (NOT DETECT); Parainfluenza Virus Type 2 Not Detected (NOT DETECT); Parainfluenza Virus Type 3 Not Detected (NOT DETECT); Parainfluenza Virus Type 4 Not Detected (NOT DETECT); Respiratory Syncytial Virus A Not Detected (NOT DETECT); Respiratory Syncytial Virus B Not Detected (NOT DETECT); SARS-COV-2 Detected (NOT DETECT)
[2021-08-22 03:25] VITALS: BP 155/74; PULSE 74; O2SAT 98
== END 2021-08-22 03:28 | disposition home or self-care (01) ==
PROVIDERS: Physician Assistant; Emergency Provider Emergency Medicine; PCP Electrodiagnostic Medicine
DX: N39.0 Urinary tract infection, site not specified (principal); U07.1 COVID-19; Z79.84 Long term (current) use of oral hypoglycemic drugs; Z79.82 Long term (current) use of aspirin; E11.9 Type 2 diabetes mellitus without complications; E78.5 Hyperlipidemia, unspecified; I10 Essential (primary) hypertension
CPT/HCPCS: 36415; 36416; 70450; 71045; 80053; 81001; 82962; 84484; 85025; 87077; 87086; 87186; 87635; 93005; 96372; 99283; J0696

== ENCOUNTER 2021-08-24 14:04 | Outpatient (CLI) | payer MEDICARE, MEDICAID, SELFPAY ==
--- NOTE | 2021-08-24 15:00 | USCV_ITS ---
Sara Santoyo Age: 85 Gender: F : 1935 Exam Date: 08/24/2021 14:47 Ordering Phys: Humberto Parra MD ([email or web address]) Technologist: Zeinab Urbina Exam Location: [facility] [place] Indication: SOB AND SYNCOPE BP: / HR: 62 Rhythm: Sinus Technical Quality: MEASUREMENTS (Male / Female) Normal Values 2D ECHO LV Diastolic Diameter PLAX 3.9 cm 4.2 - 5.9 / 3.9 - 5.3 cm LV Systolic Diameter PLAX 2.9 cm LV Chamber Size 3.3 cm IVS Diastolic Thickness 1.2 cm 0.6 - 1.0 / 0.6 - 0.9 cm IVS Systolic Thickness 1.1 cm LVPW Diastolic Thickness 1.3 cm 0.6 - 1.0 / 0.6 - 0.9 cm LVPW Systolic Thickness 1.6 cm RV Chamber Size 1.8 cm LVOT Diameter 2.0 cm LV Ejection Fraction 2D Teich 51.9 % LA Diameter 2.6 cm LA Width 3.2 cm LA Height 4.1 cm RA Width 3.5 cm RA Height 3.8 cm Aorta at Sinotubular Diameter 3.4 cm M-MODE Aortic Annulus Diameter 1.8 cm LA Ao Ratio MM 1.0 MV E Point Septal Separation 0.9 cm DOPPLER AV Peak Velocity 120.0 cm/s LVOT Peak Velocity 115.0 cm/s AV Area Cont Eq vti 3.5 cm squared AV Area Cont Eq pk 3.1 cm squared MV Area PHT 3.1 cm squared Mitral E to A Ratio 0.9 MV E' Velocity 45.5 cm/s Mitral E to MV E' Ratio 12.5 Mitral E to LV E' Lateral Ratio 12.3 Mitral E to LV E' Septal Ratio 12.7 TR Peak Velocity 119.9 cm/s TR Peak Gradient 5.8 mmHg TR Mean Velocity 71.0 cm/s TR Mean Gradient 2.5 mmHg TR Velocity Time Integral 26.1 cm TV Peak E Velocity 70.0 cm/s PV Peak Velocity 80.0 cm/s RV Acceleration Time 0.1 s RV Ejection Time 0.4 s RV AcT/ET 0.4 FINDINGS Left Ventricle Normal left ventricular size and ejection fraction of 55%. Mild concentric left ventricular hypertrophy.no regional wall motion abnormalities. Right Ventricle Normal right ventricular size and systolic function. Right Atrium The right atrium is normal in size. Left Atrium The left atrium is normal in size. Mitral Valve Thickened mitral valve. Mild mitral annular calcification. Aortic Valve Thickened aortic valve. Tricuspid Valve No gross abnormalities noted Pulmonic Valve Pulmonic valve not well visualized. Pericardium Normal pericardium without effusion. Aorta Normal ascending aorta dimension. CONCLUSIONS Normal left ventricular size and ejection fraction of 55%. Mild concentric left ventricular hypertrophy.no regional wall motion abnormalities. Thickened mitral valve. Mild mitral annular calcification. Thickened aortic valve. There is no pericardial effusion. There are no intracardiac masses. Compared to the study from 05/29/2021, there is no significant mitral regurgitation-this could be related to technical issues. Clinical correlation is recommended Dr Humberto Parra MD FACC (Electronically Signed) Final Date: 24 August 2021 19:44 S
== END 2021-08-24 14:05 | disposition home or self-care (01) ==
LOC: RAD 14:07
PROVIDERS: PCP Electrodiagnostic Medicine; Visit Provider Internal Medicine Cardiovascular Disease
DX: R06.00 Dyspnea, unspecified (principal); R77.8 Other specified abnormalities of plasma proteins; R06.02 Shortness of breath; R55 Syncope and collapse; I08.0 Rheumatic disorders of both mitral and aortic valves
CPT/HCPCS: 93306

== ENCOUNTER 2021-08-29 07:48 | Emergency (ER) | payer MEDICARE, MEDICAID, SELFPAY ==
[2021-08-29 07:53] VITALS: BP 152/68; PULSE 66; RESP 15; TEMP 37.2; O2SAT 95; BMI 19.8
--- NOTE | 2021-08-29 07:57 | ECG_ITS ---
[facility] Test Date: 2021-08-29 Pat Name: Sara Santoyo Department: Room: Gender: Female Sub Arc Operator: : 1935 Requested By: Kevin Lei Order Number: [id number] Alfredo MD: Lou Goncalves M.D. Measurements Intervals [place] Rate: 62 P: 38 MI: 202 QRS: -67 QRSD: 136 T: 50 QT: 462 QTc: 470 Interpretive Statements SINUS RHYTHM RIGHT BUNDLE BRANCH BLOCK [120+ ms QRS DURATION, UPRIGHT V1, 40+ ms S IN I/aVL/V4/V5/V6] LEFT ANTERIOR FASCICULAR BLOCK [QRS AXIS <= -45, QR IN I, RS IN II] POSSIBLE SEPTAL MYOCARDIAL INFARCTION , PROBABLY OLD [30 ms Q WAVE IN V1/V2] Compared to ECG 08/22/2021 00:40:56 No significant changes Electronically Signed On 08-29-2021 13:03:03 BLOW DOWN HELPER by Lou Goncalves M.D. [id number]
--- NOTE | 2021-08-29 08:12 | ED_ITS ---
HPI - Fall General: Chief Complaint: Syncope Stated Complaint: SYNCOPE, DEHYDRATION, UTI Time Seen by Provider: 08/29/21 07:54 History of Present Illness: HPI Narrative: 85-year-old female who presents to the emergency room via EMS chief complaint of a syncopal episode at home after getting up after using the restroom. She was seen previously on 08/21/2021 and treated for UTI. Patient reports dizziness and weakness. MD complaint: fall Onset (ago): minute(s) Fall from: standing Fall witnessed: yes, by family Place fall occurred: home Loss of consciousness: None Prolonged down time: no Symptoms prior to fall: lightheadedness Context: other (Standing from toilet) Associated symptoms-after fall: Denies abdominal pain or chest pain Review of Systems Const: Denies: fever(s), chills, body aches, change in appetite, fatigue or malaise ENMT: Denies: throat pain, ear or mastoid pain, nasal discharge or nasal congestion Card: Denies: chest pain, edema, dyspnea on exertion or orthopnea Resp: Denies: dyspnea, productive cough or non-productive cough GI: Denies: abdominal pain, nausea, vomiting, hematemesis, coffee ground emesis, diarrhea, constipation, bloating, hematochezia or melena : Denies: flank pain, difficulty voiding, dysuria, urinary frequency or urinary urgency Skin/Breast: Denies: rash or pruritus PFSH ED PFSH: Medical History Diabetes mellitus Hyperlipidemia Hypertension No pertinent family history Surgical History No pertinent past surgical history Family History Son CAD (coronary artery disease) [place] in 30's Mother CAD (coronary artery disease) Diabetes Sister Dementia Daughter Diabetes Denies family history of Clotting disorder Chronic kidney disease (CKD) Suicide Anesthesia complication Bleeding disorder Lung disease Cancer Stroke Social History Smoking and tobacco status: never smoked Alcohol intake: never Physical Exam Const: COMMON NORMALS: no acute distress GENERAL APPEARANCE: cooperative and comfortable ORIENTATION/CONSCIOUSNESS: Yes awake, Yes oriented to person, Yes oriented to place and Yes oriented to time HENMT: COMMON NORMALS: normocephalic, atraumatic and hearing grossly normal bilaterally HEAD & SCALP: normocephalic and atraumatic Neck/C-Spine: COMMON NORMALS: no JVD Resp: COMMON NORMALS: normal respiratory effort, No retractions, No use of accessory muscles and clear to auscultation bilaterally AUSCULTATION: clear to auscultation bilaterally Cardio: COMMON NORMALS: no JVD, regular rate, regular rhythm and No murmurs present (Cardio) RATE: regular rate RHYTHM: regular rhythm GI: COMMON NORMALS: Soft to palpation and No hepatosplenomegaly present AUSCULTATION: Yes normoactive bowel sounds PALPATION: Yes Soft to palpation, No Tenderness to palpation present (GI), No Guarding due to palpation present (GI) and Yes No hepatosplenomegaly present Extremity: COMMON NORMALS: normal to inspection, capillary refill normal, no clubbing, cyanosis or edema, no calf tenderness and no pedal edema Neuro: SENSORIUM/ORIENTATION: Yes oriented to person, Yes oriented to place and Yes oriented to time Skin: COMMON NORMALS: no rashes or lesions noted GENERAL SKIN EXAM: no rashes or lesions noted Course Vital Signs: Vital signs: Vital Signs Temperature 98.9 F 08/29/21 07:53 Pulse Rate 76 08/29/21 12:57 Respiratory Rate 12 08/29/21 12:57 Blood Pressure 138/97 08/29/21 12:57 Pulse Oximetry 97 08/29/21 12:57 MDM - Fall MDM Narrative: Medical decision making narrative: Cystitis. Syncope due to orthostatic hypotension we will go ahead and give her dose of Rocephin here then treat with Macrobid discharge home increase fluids follow-up with primary care. Lab Data: Labs: Lab Results 08/29/21 08/29/21 08/29/21 09:35 09:35 09:35 WBC 4.8 10^3/uL 10^3/ uL (4.0-10.0) RBC 4.02 10^6/uL L 10 ^6/uL (4.1-5.3) Hgb 11.9 g/dL g/dL (11.5-15.3) Hct 36.5 % L % (37.0-47.0) MCV 90.8 fl fl (81-99) MCH 29.6 pg pg (28.0-34.0) MCHC 32.6 g/dL g/dL (30.0-36.0) RDW 12.4 % % (12.1-15.1) Plt Count 256 10^3/cmm 10^3 /cmm (130-400) MPV 9.1 fL fL (7.4-10.4) Neut % (Auto) 73.8 % % Lymph % (Auto) 20.2 % % [place] % (Auto) 4.8 % % Eos % (Auto) 0.8 % % Baso % (Auto) 0.2 % % Neut # (Auto) 3.55 10^3/uL 10^3 /uL (1.8-7.7) Lymph # (Auto) 1.0 10^3/uL 10^3/ uL (0.8-4.8) [place] # (Auto) 0.2 10^3/uL 10^3/ uL (0.2-0.9) Eos # (Auto) 0.0 10^3/uL 10^3/ uL (0.0-0.8) Baso # (Auto) 0.0 10^3/uL 10^3/ uL (0.0-0.1) Nucleated RBC % (a uto) 0 % % Nucleated RBCs # 0.0 /100WBC /100W BC Sodium 139 mmol/L mmol/L (136-145) Potassium 4.2 mmol/L mmol/L (3.5-5.1) Chloride 105 mmol/L mmol/L (98-107) Carbon Dioxide 22 mmol/L mmol/L (22-29) Anion Gap 16.2 (5-19) BUN 10 mg/dL mg/dL (8-23) Creatinine 0.9 mg/dL mg/dL (0.5-0.9) GFR Calculation Not Reportable Glucose 70 mg/dL mg/dL (65-115) Calculated Osmolal ity 285 mOsm/kg mOsm/ kg (285-295) Calcium 8.4 mg/dL L mg/dL (8.5-10.5) Total Bilirubin 0.3 mg/dL mg/dL (0.15-1.2) AST 15 U/L U/L (0-32) ALT 9 U/L U/L (0-33) Alkaline Phosphata se 55 IU/L IU/L (35-105) Creatine Kinase 39 U/L U/L (26-192) Troponin T Baselin e 18 ng/L H ng/L (0-10) Troponin T 120 Min red devil Delta Troponin T Total Protein 6.9 g/dL g/dL (6.6-8.7) Albumin 3.5 g/dL g/dL (3.5-5.2) Globulin 3.4 g/dL g/dL (1.3-4.6) Urine Color Urine Appearance Urine pH Ur Specific Gravit y Urine Protein Urine Glucose (UA) Urine Ketones Urine Blood Urine Nitrate Urine Bilirubin Urine Urobilinogen Ur Leukocyte Genesis ase Urine RBC Urine WBC Ur Squamous Epith Cells Amorphous Sediment Urine Bacteria 08/29/21 08/29/21 11:00 11:36 WBC RBC Hgb Hct MCV MCH MCHC RDW Plt Count MPV Neut % (Auto) Lymph % (Auto) [place] % (Auto) Eos % (Auto) Baso % (Auto) Neut # (Auto) Lymph # (Auto) [place] # (Auto) Eos # (Auto) Baso # (Auto) Nucleated RBC % (a uto) Nucleated RBCs # Sodium Potassium Chloride Carbon Dioxide Anion Gap BUN Creatinine GFR Calculation Glucose Calculated Osmolal ity Calcium Total Bilirubin AST ALT Alkaline Phosphata se Creatine Kinase Troponin T Baselin e Troponin T 120 Min red devil 17.57 ng/L H ng/L (0-10) Delta Troponin T -0.43 ABS# L ABS# (0-10) Total Protein Albumin Globulin Urine Color Yellow (Yellow) Urine Appearance Hazy A (CLEAR) Urine pH 5 (5-7) Ur Specific Gravit y 1.010 (1.005-1.030) Urine Protein Neg (Negative) Urine Glucose (UA) Norm (Normal) Urine Ketones Negative (Negative) Urine Blood Neg (Negative) Urine Nitrate Negative (Negative) Urine Bilirubin Neg (Negative) Urine Urobilinogen Norm mg/dL mg/dL (Negative) Ur Leukocyte Genesis ase 2+ H (Negative) Urine RBC 0-4 /hpf H /hpf (0-2) Urine WBC 5-10 /hpf H /hpf (0-5) Ur Squamous Epith Cells 0-4 /hpf H /hpf (0-5) Amorphous Sediment Not Reportable Urine Bacteria 1+ /hpf H /hpf (NONE) Discharge Plan Discharge Patient Disposition: Home Clinical Impression: Acute UTI, Syncope due to orthostatic hypotension Condition: Stable Prescriptions: New Macrobid 100 mg capsule 100 mg PO BID 7 Days Qty: 14 RF: 0 No Action amlodipine 10 mg tablet 10 mg PO DAILY 90 Days Qty: 90 RF: 3 atorvastatin [Lipitor] 40 mg tablet 40 mg PO DAILY Qty: 90 RF: 3 metformin 500 mg tablet 500 mg PO BID RF: 0 gemfibrozil 600 mg tablet 600 mg PO DAILY RF: 0 aspirin 81 mg Tablet,Chewable 81 mg PO DAILY RF: 0 lisinopril 40 mg tablet 40 mg PO DAILY RF: 0 ondansetron 4 mg tablet,disintegrating 4 mg PO Q6H PRN (Reason: nausea and vomiting) Qty: 14 RF: 0 Discharge Orders: Discharge ED (Routine); Ordered 08/29/21 Ordered By: Kevin Delgado Referrals: Dayday Chandler DO [Primary Care Provider] - Patient Instructions: Opioid Safety Coding Level of Care Code ED Manager Animal for Sury Mccormack
[2021-08-29 09:48] VITALS: BP 145/74; PULSE 64; RESP 17; O2SAT 94
[2021-08-29 09:50] LABS: Basophils % 0.2 %; Eosinophils % 0.8 %; Hematocrit 36.5 % (37.0-47.0); Hemoglobin 11.9 g/dL (11.5-15.3); Lymphocytes % 20.2 %; Mean Corpuscular HGB Conc 32.6 g/dL (30.0-36.0); Mean Corpuscular Hemoglobin 29.6 pg (28.0-34.0); Mean Corpuscular Volume 90.8 fl (81-99); Mean Platelet Volume 9.1 fL (7.4-10.4); Monocytes # 0.2 10^3/uL (0.2-0.9); Monocytes % 4.8 %; Neutrophils # 3.55 10^3/uL (1.8-7.7); Neutrophils % 73.8 %; Nucleated Red Blood Cells % 0 %; Platelet Count 256 10^3/cmm (130-400); Red Blood Count 4.02 10^6/uL (4.1-5.3); Red Cell Distribution Width 12.4 % (12.1-15.1); White Blood Count 4.8 10^3/uL (4.0-10.0)
--- NOTE | 2021-08-29 09:57 | ECG_ITS ---
[facility] Test Date: 2021-08-29 Pat Name: Sara Santoyo Department: Room: Gender: Female B Operator: : 1935 Requested By: Kevin Lei Order Number: [id number] Alfredo MD: Lou Goncalves M.D. Measurements Intervals [place] Rate: 64 P: 53 [place]: 181 QRS: -75 QRSD: 139 T: 65 QT: 430 QTc: 444 Interpretive Statements SINUS RHYTHM RIGHT BUNDLE BRANCH BLOCK [120+ ms QRS DURATION, UPRIGHT V1, 40+ ms S IN I/aVL/V4/V5/V6] LEFT ANTERIOR FASCICULAR BLOCK [QRS AXIS <= -45, QR IN I, RS IN II] SEPTAL MYOCARDIAL INFARCTION , PROBABLY OLD [40+ ms Q WAVE IN V1/V2] Compared to ECG 08/22/2021 00:40:56 No significant changes Electronically Signed On 08-29-2021 13:15:10 NUT CULLER by Lou Goncalves M.D. [id number]
[2021-08-29 10:01] LABS: Alanine Aminotransferase 9 U/L (0-33); Albumin Level 3.5 g/dL (3.5-5.2); Alkaline Phosphatase 55 IU/L (35-105); Anion Gap 16.2 (5-19); Aspartate Amino Transferase 15 U/L (0-32); Blood Urea Nitrogen 10 mg/dL (8-23); Calcium 8.4 mg/dL (8.5-10.5); Carbon Dioxide 22 mmol/L (22-29); Chloride 105 mmol/L (98-107); Creatine Phosphokinase 39 U/L (26-192); Globulin 3.4 g/dL (1.3-4.6); Glucose 70 mg/dL (65-115); Osmolality Calculated 285 mOsm/kg (285-295); Potassium 4.2 mmol/L (3.5-5.1); Sodium 139 mmol/L (136-145); Total Bilirubin 0.3 mg/dL (0.15-1.2); Total Protein 6.9 g/dL (6.6-8.7)
[2021-08-29 10:27] LABS: Troponin(5th) Baseline 18 ng/L (0-10)
[2021-08-29 11:37] LABS: Add Urine Microscopic? YES; Bacteria Urine 1+ /hpf; Bilirubin Urine Neg (Negative); Blood Urine Neg (Negative); Glucose Urine UA Norm (Normal); Ketones Urine Negative (Negative); Leukocyte Esterase Urine 2+ (Negative); Nitrate Urine Negative (Negative); Protein Urine Neg (Negative); RBC Urine 0-4 /hpf (0-2); Squamous Epithelial Cell Urine 0-4 /hpf (0-5); Urine Appearance Hazy (CLEAR); Urine Color Yellow (Yellow); Urobilinogen Urine Norm (Negative); pH Urine 5 (5-7)
[2021-08-29 12:13] LABS: Troponin 5 2HR 17.57 ng/L (0-10)
[2021-08-29 12:18] LABS: Troponin 5 2HR Delta -0.43 ABS# (0-10)
[2021-08-29] MEDS: cefTRIAXone 1,000 MG in lidocaine 1% 2.1 ML 2.1 MG IM (12:35)
[2021-08-29 12:57] VITALS: BP 138/97; PULSE 76; RESP 12; O2SAT 97
== END 2021-08-29 12:59 | disposition home or self-care (01) ==
PROVIDERS: Emergency Provider Family Medicine; PCP Electrodiagnostic Medicine
DX: I95.1 Orthostatic hypotension (principal); N39.0 Urinary tract infection, site not specified; Z79.84 Long term (current) use of oral hypoglycemic drugs; Z79.82 Long term (current) use of aspirin; E11.9 Type 2 diabetes mellitus without complications; E78.5 Hyperlipidemia, unspecified; I10 Essential (primary) hypertension
CPT/HCPCS: 36415; 51701; 80053; 81001; 82550; 84484; 85025; 93005; 96372; 99283; J0696

== ENCOUNTER → 2022-12-08 14:10 | Outpatient (BNVA) | payer MEDICARE, MEDICAID, SELFPAY | PROVIDERS: PCP Electrodiagnostic Medicine; Visit Provider Registered Nurse Neonatal Intensive Care | DX: R39.9 Unspecified symptoms and signs involving the genitourinary system (principal); N39.0 Urinary tract infection, site not specified | CPT/HCPCS: 81000; 87077; 87086; 87184 ==

== ENCOUNTER → 2023-12-12 09:07 | Outpatient (BNVA) | payer MEDICARE, MEDICAID, SELFPAY | PROVIDERS: PCP Electrodiagnostic Medicine; Visit Provider Podiatrist Foot & Ankle Surgery | DX: L60.3 Nail dystrophy (principal); G62.9 Polyneuropathy, unspecified; I73.9 Peripheral vascular disease, unspecified; E11.42 Type 2 diabetes mellitus with diabetic polyneuropathy; Z79.84 Long term (current) use of oral hypoglycemic drugs | CPT/HCPCS: 11721; 99203 ==

== ENCOUNTER → 2024-02-21 10:36 | Outpatient (BNVA) | payer MEDICARE, MEDICAID, SELFPAY | PROVIDERS: PCP Electrodiagnostic Medicine; Visit Provider Podiatrist Foot & Ankle Surgery | DX: L60.3 Nail dystrophy (principal); E11.42 Type 2 diabetes mellitus with diabetic polyneuropathy; G62.9 Polyneuropathy, unspecified; I73.9 Peripheral vascular disease, unspecified; Z79.84 Long term (current) use of oral hypoglycemic drugs | CPT/HCPCS: 11721 ==

== ENCOUNTER → 2024-05-01 10:33 | Outpatient (BNVA) | payer MEDICARE, MEDICAID, SELFPAY | PROVIDERS: PCP Electrodiagnostic Medicine; Visit Provider Podiatrist Foot & Ankle Surgery | DX: L60.3 Nail dystrophy (principal); G62.9 Polyneuropathy, unspecified; I73.9 Peripheral vascular disease, unspecified; E11.42 Type 2 diabetes mellitus with diabetic polyneuropathy; Z79.84 Long term (current) use of oral hypoglycemic drugs | CPT/HCPCS: 11721 ==

== ENCOUNTER → 2024-07-07 14:59 | Outpatient (BNVA) | payer MEDICARE, MEDICAID, SELFPAY | PROVIDERS: PCP Electrodiagnostic Medicine; Visit Provider Podiatrist Foot & Ankle Surgery | DX: L60.3 Nail dystrophy (principal); G62.9 Polyneuropathy, unspecified; I73.9 Peripheral vascular disease, unspecified; E11.42 Type 2 diabetes mellitus with diabetic polyneuropathy; Z79.84 Long term (current) use of oral hypoglycemic drugs | CPT/HCPCS: 11721 ==

== ENCOUNTER 2024-08-02 02:32 | Inpatient (IN) | payer MEDICARE, MEDICAID, SELFPAY ==
[2024-08-02] VITALS (19 sets, daily range): BP systolic 93–161; BP diastolic 39–85; PULSE 52–91; RESP 15–17; TEMP 35.9–36.7; O2SAT 92–100; BMI 22.7
--- NOTE | 2024-08-02 03:15 | CTR_ITS ---
PROCEDURE INFORMATION: Exam: CT Lumbar Spine Without Contrast Exam date and time: 08/02/2024 3:26 AM Age: 88 years old Clinical indication: Injury or trauma; Blunt trauma (contusions or hematomas); Patient HX: EMS arrival for fall at home. C/O low back and left hip pain. ; Additional info: Fall low back pain TECHNIQUE: Imaging protocol: Computed tomography of the lumbar spine without contrast. Radiation optimization: All CT scans at this facility use at least one of these dose optimization techniques: automated exposure control; mA and/or kV adjustment per patient size (includes targeted exams where dose is matched to clinical indication); or iterative reconstruction. COMPARISON: CR XR pelvis 1-2V* [id number] 11/01/2018 6:12 PM RADIATION DOSE METRICS: Total DLP (mGy-cm): 664.97 FINDINGS: Bones/joints: There is a S shaped lumbar curvature. No fracture. Endplate spurring and vacuum disc phenomenon at all lumbar levels. Advanced degenerative disc disease noted at L2-L3, L3-L4, and L5-S1. Mild facet arthropathy trace retrolisthesis of L3 on L4. Soft tissues: Unremarkable. CT/CT lumbar spine wo con* [id number] IMPRESSION: No acute findings. No fracture. Advanced degenerate spondylosis.
--- NOTE | 2024-08-02 03:15 | CTR_ITS ---
PROCEDURE INFORMATION: Exam: CT Pelvis Without Contrast, Skeleton Exam date and time: 08/02/2024 3:29 AM Age: 88 years old Clinical indication: Injury or trauma; Blunt trauma (contusions or hematomas); Patient HX: EMS arrival for fall at home. C/O low back and left hip pain. ; Additional info: Fall left hip pain TECHNIQUE: Imaging protocol: Computed tomography of the pelvis without contrast. Exam focused on the skeleton. Radiation optimization: All CT scans at this facility use at least one of these dose optimization techniques: automated exposure control; mA and/or kV adjustment per patient size (includes targeted exams where dose is matched to clinical indication); or iterative reconstruction. COMPARISON: CR XR pelvis 1-2V* [id number] 11/01/2018 6:12 PM RADIATION DOSE METRICS: Total DLP (mGy-cm): 338.02 FINDINGS: Intestine: Mild diverticulosis is noted. No evidence of diverticulitis. No obstruction. Vasculature: Scattered phleboliths in the pelvis noted. Calcified atherosclerotic plaque noted. Reproductive: There has been hysterectomy. Bones/joints: Fracture of the mid aspect of the left femoral neck without intertrochanteric extension. Soft tissues: Unremarkable. CT/CT bony pelvis [id number] IMPRESSION: Fracture of the mid aspect of the left femoral neck without intertrochanteric extension.
--- NOTE | 2024-08-02 03:17 | W.ED.FALL ---
HPI - Fall General: Chief Complaint: Fall Stated Complaint: fall-back pain Time Seen by Provider: 08/02/24 02:54 History of Present Illness: 88-year-old female who lives at home with her daughter. Prior to arrival, she got up from her chair to use the restroom, and fell, hitting the end table to her low back and hips. She did not hit her head. She is not on anticoagulants. She complains of hip and low back pain. Worse with bearing weight. No radicular pain down the legs. No numbness or tingling. Related Data Home Medications Medication Instructions Recorded Confirmed aspirin 81 mg chewable tablet 81 mg PO DAILY 05/29/21 07/07/24 gemfibrozil 600 mg tablet 600 mg PO DAILY 05/29/21 07/07/24 lisinopril 40 mg tablet 40 mg PO DAILY 05/29/21 07/07/24 metformin 500 mg tablet 500 mg PO BID 05/29/21 07/07/24 donepezil 10 mg tablet 10 mg PO DAILY 12/12/23 07/07/24 olanzapine 5 mg tablet 5 mg PO DAILY 12/12/23 07/07/24 Previous Rx's Medication Instructions Recorded amlodipine 10 mg tablet 10 mg PO DAILY 90 days #90 tabs 06/29/21 atorvastatin 40 mg tablet (Lipitor) 40 mg PO DAILY #90 tabs 06/29/21 ondansetron 4 mg disintegrating 4 mg PO Q6H PRN nausea and 08/22/21 tablet vomiting #14 tabs cephalexin 500 mg capsule 500 mg PO TID 7 days #21 caps 12/08/22 Allergies Allergy/AdvReac Type Severity Reaction Status Date / Time No Known Allergies Allergy Verified 08/02/24 02:43 [facility] ED PFS: Medical History No pertinent family history Diabetes mellitus Hyperlipidemia Hypertension Surgical History No pertinent past surgical history Family History Son CAD (coronary artery disease) [place] in 30's Mother CAD (coronary artery disease) Diabetes Sister Dementia Daughter Diabetes Denies family history of Clotting disorder Chronic kidney disease (CKD) Suicide Anesthesia complication Bleeding disorder Lung disease Cancer Stroke Social History Smoking and tobacco/nicotine status: never used tobacco/nicotine Alcohol intake: never Substance/Drug Use: never Physical Exam Const: COMMON NORMALS: no acute distress GENERAL APPEARANCE: cooperative and frail appearing (Mildly); not ill appearing HENMT: COMMON NORMALS: normocephalic HEAD & SCALP: normocephalic FACE & SINUS: normal facial exam and face symmetric Eye: COMMON NORMALS: Equal, round and reactive pupils present and EOMs intact bilaterally PUPIL: Yes Equal, round and reactive pupils present Chest: CHEST: Yes Symmetrical chest wall rise Resp: COMMON NORMALS: normal respiratory effort, No use of accessory muscles and clear to auscultation bilaterally AUSCULTATION: clear to auscultation bilaterally Cardio: COMMON NORMALS: regular rate and regular rhythm RATE: regular rate RHYTHM: regular rhythm GI: COMMON NORMALS: Soft to palpation PALPATION: Yes Soft to palpation and No Tenderness to palpation present (GI) Back/Pelvis: OTHER: Examination reveals pain to the lateral and posterior right hip, and worse tenderness over the left. There is minimal anterior pain there is no deformity. There is also some midline lumbar tenderness. This appears mild. There is no step-off. No deformity. Sensation is intact distally. Pulses are intact distally. Course Vital Signs: Vital signs: Vital Signs Temperature 98.0 F 08/02/24 02:37 Pulse Rate 55 L 08/02/24 02:37 Respiratory Rate 15 08/02/24 02:37 Blood Pressure 140/81 08/02/24 02:37 Pulse Oximetry 95 08/02/24 02:37 Oxygen Delivery Me thod Room Air 08/02/24 02:37 MDM - Fall Medical Decision Making 88-year-old female with a fall. Pelvic CT shows mid aspect fracture of the left femoral neck. No findings on lumbar film. Chest x-ray is negative. X-ray confirms left hip fracture. [place] has been ordered. Awaiting laboratory. She will require admission. Hospitalist and orthopedic surgeon has been notified. Lab Data Radiology Impressions Lumbar Spine CT 08/02/24 03:15 IMPRESSION: No acute findings. No fracture. Advanced degenerate spondylosis. Pelvis CT 08/02/24 03:15 IMPRESSION: Fracture of the mid aspect of the left femoral neck without intertrochanteric extension. Chest X-Ray 08/02/24 03:40 IMPRESSION: No acute findings. Hip/Pelvis X-Ray 08/02/24 03:40 IMPRESSION: Left femoral neck fracture without intertrochanteric extension. Laboratory Results Urine Color Yellow (Yellow) 08/02/24 04:31 Urine Appearance Clear (CLEAR) 08/02/24 04:31 Urine pH 6.5 (5-7) 08/02/24 04:31 Ur Specific [place] 1.014 (1.005-1.030) 08/02/24 04:31 Urine Protein Negative (Negative) 08/02/24 04:31 Urine Glucose (UA) Negative (Normal) 08/02/24 04:31 Urine Ketones Negative (Negative) 08/02/24 04:31 Urine Blood Negative (Negative) 08/02/24 04:31 Urine Nitrate Negative (Negative) 08/02/24 04:31 Urine Bilirubin Negative (Negative) 08/02/24 04:31 Urine Urobilinogen 0.2 mg/dL (Negative) 08/02/24 04:31 Ur Leukocyte Esterase Negative (Negative) 08/02/24 04:31 Amorphous Sediment Not Reportable 08/02/24 04:31 All radiology interpretation(s) finalized by discharge Discharge Plan Discharge Patient Disposition: Admitted As Inpatient Clinical Impression: Closed fracture of left hip Condition: Fair Prescriptions: No Action amlodipine 10 mg tablet 10 mg PO DAILY 90 Days Qty: 90 3RF atorvastatin [Lipitor] 40 mg tablet 40 mg PO DAILY Qty: 90 3RF olanzapine 5 mg tablet 5 mg PO DAILY donepezil 10 mg tablet 10 mg PO DAILY cephalexin 500 mg capsule 500 mg PO TID 7 Days Qty: 21 0RF metformin 500 mg tablet 500 mg PO BID gemfibrozil 600 mg tablet 600 mg PO DAILY aspirin 81 mg Tablet,Chewable 81 mg PO DAILY lisinopril 40 mg tablet 40 mg PO DAILY ondansetron 4 mg tablet,disintegrating 4 mg PO Q6H PRN (Reason: nausea and vomiting) Qty: 14 0RF Referrals: Dayday Chandler DO [Primary Care Provider] - Coding Level of Care Code ED Fiscal Accounting Clerk for lourdes Mccormack
--- NOTE | 2024-08-02 03:40 | XRR_ITS ---
PROCEDURE INFORMATION: Exam: XR Chest Exam date and time: 08/02/2024 3:55 AM Age: 88 years old Clinical indication: Injury or trauma; Blunt trauma (contusions or hematomas); Patient HX: EMS arrival for fall at home. Pre op for hip fracture. ; Additional info: Fall, hip FX TECHNIQUE: Imaging protocol: Radiologic exam of the chest. Views: 1 view. COMPARISON: CR XR chest 1V portable [id number] 08/21/2021 5:06 PM FINDINGS: Lungs: Unremarkable. No consolidation. Pleural spaces: Unremarkable. No pleural effusion. No pneumothorax. Heart/Mediastinum: Unremarkable. No cardiomegaly. Bones/joints: Unremarkable. XR/XR chest 1V portable [id number] IMPRESSION: No acute findings.
--- NOTE | 2024-08-02 03:40 | XRR_ITS ---
PROCEDURE INFORMATION: Exam: XR Left Hip Exam date and time: 08/02/2024 3:55 AM Age: 88 years old Clinical indication: Injury or trauma; Blunt trauma (contusions or hematomas); Patient HX: EMS arrival for fall at home. C/O left hip pain. ; Additional info: Fall hip FX TECHNIQUE: Imaging protocol: Radiologic exam of the left hip. Views: 2 or 3 views hip with pelvis when performed. COMPARISON: CT bony pelvis [id number] 08/02/2024 3:29 AM FINDINGS: Bones/joints: Left femoral neck fracture with impaction and angulation. Soft tissues: Unremarkable. XR/XR hip LT 2-3V wo/w pel* [id number] IMPRESSION: Left femoral neck fracture without intertrochanteric extension.
--- NOTE | 2024-08-02 04:06 | ECG_ITS ---
[facility] Test Date: 2024-08-02 Pat Name: Sara Santoyo Department: Room: Gender: Female [employer] Person: : [id number] Requested By: Santiago Regalado Order Number: [id number] Alfredo MD: PANKAJ GRAFF Measurements Intervals [place] Rate: 60 P: 81 WV: 204 QRS: -83 QRSD: 134 T: 96 QT: 488 QTc: 488 Interpretive Statements SINUS RHYTHM WITH OCCASIONAL SUPRAVENTRICULAR PREMATURE COMPLEXES LEFT AXIS DEVIATION [QRS AXIS < -30] INTRAVENTRICULAR CONDUCTION DELAY [130+ ms QRS DURATION] Compared to ECG 08/29/2021 09:44:08 Left-axis deviation now present Intraventricular conduction delay now present Right bundle-branch block no longer present Left anterior fascicular block no longer present Myocardial infarct finding no longer present Electronically Signed On 08-03-2024 16:10:50 SYSTEM ADMIN by PANKAJ GRAFF [email or web address]
[2024-08-02] MEDS: ondansetron 2 mg/ML SDV 2 mL 4 MG IVP (04:53)
[2024-08-02] MEDS: morphine 4 mg/mL SDV 1 mL 2 MG IVP (04:53)
[2024-08-02 05:24] LABS: Add Urine Microscopic? NO
[2024-08-02 05:25] LABS: Bilirubin Urine Negative (Negative); Blood Urine Negative (Negative); Glucose Urine UA Negative (Normal); Ketones Urine Negative (Negative); Leukocyte Esterase Urine Negative (Negative); Nitrate Urine Negative (Negative); Protein Urine Negative (Negative); Specific Gravity, Urine 1.014 (1.005-1.030); Urine Appearance Clear (CLEAR); Urine Color Yellow (Yellow); Urobilinogen Urine 0.2 mg/dL (Negative); pH Urine 6.5 (5-7)
[2024-08-02 05:27] LABS: Charge for UA Resulting for Rev
--- NOTE | 2024-08-02 06:23 | P.HP_ITS ---
Providers/Chief Complaint Primary Care Provider: Dayday Chandler DO Chief Complaint: fall-back pain History of Present Illness Sara Santoyo is a 88 year old female with history of hypertension, diabetes, dementia, uses a walker at home, present to the hospital after sustaining a fall at 2 AM. Patient is not on any blood thinners. Daughter is at the bedside stating that they heard a thump around 2 AM and when checked Shaneka french was on the floor, Kimberlee was sleeping in a day bed in the living room, she wanted to use bedside commode but wanted her daughter to help her, she was moving towards the other room when her walker tripped and she fell. In the ER she has been diagnosed with left femoral neck fracture Dr. Romero consulted. I have kept patient n.p.o., last meal intake was around 3 PM yesterday. Patient is bradycardic normal blood pressure as per the daughter her heart rate normally stays around 50s. Discussed goals of care daughter is at the bedside patient will be DNR/DNI Daughters are stating that Kimberlee was being treated for UTI. However her UA is unremarkable Review of Systems Const: Denies: fever(s) Eyes: Denies: change in vision ENMT: Denies: throat pain Card: Denies: chest pain Resp: Denies: dyspnea GI: Denies: abdominal pain : Denies: flank pain Musc: Reports: extremity pain; Denies: neck pain Skin/Breast: Denies: rash Medications/Allergies Home Medications Medication Instructions Recorded Confirmed Last Taken Type aspirin 81 mg chewable tablet 81 mg PO DAILY 05/29/21 07/07/24 Unknown History gemfibrozil 600 mg tablet 600 mg PO DAILY 05/29/21 07/07/24 Unknown History lisinopril 40 mg tablet 40 mg PO DAILY 05/29/21 07/07/24 Unknown History metformin 500 mg tablet 500 mg PO BID 05/29/21 07/07/24 Unknown History amlodipine 10 mg tablet 10 mg PO DAILY 90 days #90 tabs 06/29/21 07/07/24 Unknown Rx atorvastatin 40 mg tablet (Lipitor) 40 mg PO DAILY #90 tabs 06/29/21 07/07/24 Unknown Rx ondansetron 4 mg disintegrating 4 mg PO Q6H PRN nausea and 08/22/21 07/07/24 Unknown Rx tablet vomiting #14 tabs cephalexin 500 mg capsule 500 mg PO TID 7 days #21 caps 12/08/22 07/07/24 Unknown Rx donepezil 10 mg tablet 10 mg PO DAILY 12/12/23 07/07/24 Unknown History olanzapine 5 mg tablet 5 mg PO DAILY 12/12/23 07/07/24 Unknown History Allergies Allergy/AdvReac Type Severity Reaction Status Date / Time No Known Allergies Allergy Verified 08/02/24 02:43 PFSH Acute PFSH: Medical History (Updated 08/02/24 @ 06:28 by Filomena Thomas MD) Atrial fibrillation Acute UTI Syncope and collapse No pertinent family history Diabetes mellitus Hyperlipidemia Hypertension Surgical History No pertinent past surgical history Family History Son CAD (coronary artery disease) [place] in 30's Mother CAD (coronary artery disease) Diabetes Sister Dementia Daughter Diabetes Denies family history of Clotting disorder Chronic kidney disease (CKD) Suicide Anesthesia complication Bleeding disorder Lung disease Cancer Stroke Social History Smoking and tobacco/nicotine status: never used tobacco/nicotine Alcohol intake: never Substance/Drug Use: never Vitals/I&O/Wt Last Vital Signs Temp 98.0 F 08/02/24 02:37 Pulse 55 L 08/02/24 02:37 Resp 15 08/02/24 02:37 BP 140/81 08/02/24 02:37 Pulse Ox 95 08/02/24 02:37 O2 Del Method Room Air 08/02/24 02:37 Weight last 48 hrs Weight 65.771 kg Physical Exam Narrative: Pleasant and cooperative female S1, S2 Bradycardia Normal blood pressure Left leg rotated outwards and short No vascular compromise Pleasant cooperative Able to answer my questions AOx3 Currently on 1 L nasal cannula saturating 100% [place] catheter in place Urinary Catheter Management: [place]: Cath Placed During This Visit: yes Urinary Catheter Date of Insertion: 08/02/24 Urinary Catheter Time of Insertion: 04:59 A&P Assessment and plan (1) Hypertension: Qualifiers: Hypertension type: primary hypertension Qualified Code(s): I10 - Essential (primary) hypertension (2) Symptomatic sinus bradycardia: (3) PAD (peripheral artery disease): (4) Type 2 diabetes mellitus: (5) Closed fracture of left hip: (6) Peripheral neuropathy: Plan Mechanical fall Patient is bradycardic with stable blood pressure On review of records: Dr. Parra has evaluated the patient for syncope collapse and possibility of sinus bradycardia, event monitor was reviewed which did not show remarkable bradycardia, patient was on metoprolol at that time which was discontinued, her stress test and echo was unremarkable This time patient is endorsing tripping over her walker Mechanical fall causing hip fracture Dr. Romero consulted N.p.o. Patient not on any anticoagulating agent Sinus rhythm, sinus bradycardia TSH and EKG [place] catheter placed Opioids along bowel regimen Start IV fluids Last meal was around 3 PM yesterday DVT prophylaxis covered with SCDs for now Family is adamant that they do not want any shelter placement, they would like to take Kimberlee back home after surgery, goals of care discussed with the daughter at the bedside she is endorsing DNR/DNI Patient has dementia does not have capacity to make decision for herself Patient does not have any significant history of coronary disease other than bradycardia Previous EKG showed sinus rhythm with right bundle branch block/bifascicular block For hypertension she takes amlodipine avoid AV sudarshan blocking agents I will also hold lisinopril perioperatively Patient is diabetic will need consistent carb diet after surgery Attestations Medical Necessity Statement*: More than 2 midnights anticipated Diagnoses Primary hypertension I10 Hypertension type: primary hypertension Symptomatic sinus bradycardia R00.1 PAD (peripheral artery disease) I73.9 Type 2 diabetes mellitus E11.9 Closed fracture of left hip S72.002A Peripheral neuropathy G62.9
[2024-08-02 06:28] LABS: Basophils % 0.2 %; Eosinophils % 0.3 %; Hematocrit 40.4 % (36-47); Lymphocytes # 0.9 10^3/uL (0.8-4.8); Lymphocytes % 9.5 %; Mean Corpuscular HGB Conc 31.2 g/dL (30-55); Mean Corpuscular Hemoglobin 29.3 pg (27-33); Monocytes # 0.3 10^3/uL (0.2-0.9); Monocytes % 3.4 %; Neutrophils # 7.89 10^3/uL (1.8-7.7); Neutrophils % 86.3 %; Nucleated Red Blood Cells % 0 %; Platelet Count 143 10^3/cmm (157-399); Red Cell Distribution Width 13.7 % (12.1-15.1); White Blood Count 9.15 10^3/uL (3.29-11.43)
[2024-08-02] MEDS: sodium chloride 0.9% 1,000 ML 75 ML IV (06:35)
[2024-08-02] MEDS: dextrose 5%-sod chloride 0.9% 1,000 ML 75 ML IV ×2 (06:44→20:10)
[2024-08-02 07:01] LABS: Alanine Aminotransferase 15 U/L (0-33); Albumin Level 3.7 g/dL (3.5-5.2); Alkaline Phosphatase 84 U/L (35-105); Anion Gap 15.1 (5-19); Aspartate Amino Transferase 19 U/L (0-32); Blood Urea Nitrogen 20 mg/dL (8-23); Calcium 9.7 mg/dL (8.5-10.5); Carbon Dioxide 26 mmol/L (22-29); Chloride 104 mmol/L (98-107); Globulin 2.9 g/dL (1.3-4.6); Glucose 127 mg/dL (65-115); Osmolality Calculated 296 mOsm/kg (285-295); Potassium 4.1 mmol/L (3.5-5.1); Sodium 141 mmol/L (136-145); Thyroid Stimulating Hormone 6.78 uIU/mL (0.27-4.20); Total Bilirubin 0.4 mg/dL (0.15-1.2); Total Protein 6.6 g/dL (6.6-8.7)
[2024-08-02 07:06] LABS: Creatinine Clr Calc Pharmacy 32.9889
[2024-08-02 07:13] LABS: INR 0.99 (0.8-1.2)
[2024-08-02 07:14] LABS: Partial Thromboplastin Time 20.3 SECONDS (23.9-36.7)
--- NOTE | 2024-08-02 08:20 | P.CONIM_ITS ---
Providers/Reason For Consult 2 Consulting Physician/Specialty*: Shefali Alba MD Reason for Consult*: Left subcapital hip fracture Requesting Physician: Dr. Santiago Granados Attending Physician: Filomena Thomas MD Primary Care Provider: Dayday Chandler DO History of Present Illness History of Present Illness Sara Santoyo is a 88 year old female who was in her usual state of health when she fell in her own home. Apparently, the daughter stated they heard a thump about 2 AM and when they checked, the patient was on the floor. She was sleeping in a day bed in the living room and wanted to use the bedside commode. She wanted her daughter to help her, so she was moving toward the other room when she tripped and fell. Last meal intake was approximately 3 PM yesterday. Patient is admitted to the hospital with a diagnosis of left subcapital hip fracture, displaced. Review of Systems 2 Const: Denies: fever(s) Eyes: Denies: change in vision ENMT: Denies: throat pain Card: Denies: chest pain Resp: Denies: dyspnea GI: Denies: abdominal pain : Denies: flank pain Musc: Reports: extremity pain; Denies: neck pain Skin/Breast: Denies: rash All/Imm: Denies: acute wheezing Medications/Allergies Home Medications Medication Instructions Recorded Confirmed Last Taken Type aspirin 81 mg chewable tablet 81 mg PO DAILY 05/29/21 08/02/24 08/01/24 History lisinopril 40 mg tablet 40 mg PO DAILY 05/29/21 08/02/24 08/01/24 History atorvastatin 40 mg tablet (Lipitor) 40 mg PO DAILY #90 tabs 06/29/21 08/02/24 08/01/24 Rx donepezil 10 mg tablet 10 mg PO DAILY 12/12/23 08/02/24 08/01/24 History olanzapine 5 mg tablet 5 mg PO DAILY 12/12/23 08/02/24 08/01/24 History ciprofloxacin HCl 500 mg tablet 500 mg PO BID 08/02/24 08/02/24 08/01/24 History hydrocortisone 2.5 % topical cream 1 applic topical TID 08/02/24 08/02/24 08/01/24 History with perineal applicator (Procto-Med ) quetiapine 25 mg tablet 25 mg PO QPM 08/02/24 08/02/24 08/01/24 History Allergies Allergy/AdvReac Type Severity Reaction Status Date / Time No Known Allergies Allergy Verified 08/02/24 02:43 Current Medications Generic Name Dose Route Start Last Admin Trade Name Yairq PRN Reason Stop Dose Admin Dextrose/Sodium Chloride 1,000 mls @ 75 mls/hr 08/02/24 06:45 08/02/24 06:44 Dextrose 5%-Sod Chloride 0.9% IV 75 mls/hr .[id number] PATIENCE Administration PFSH Acute 2 PFSH: Medical History (Updated 08/02/24 @ 08:24 by Shefali Alba MD) Atrial fibrillation Acute UTI Syncope and collapse No pertinent family history Diabetes mellitus Hyperlipidemia Hypertension Surgical History No pertinent past surgical history Family History Son CAD (coronary artery disease) [place] in 30's Mother CAD (coronary artery disease) Diabetes Sister Dementia Daughter Diabetes Denies family history of Clotting disorder Chronic kidney disease (CKD) Suicide Anesthesia complication Bleeding disorder Lung disease Cancer Stroke Social History Smoking and tobacco/nicotine status: never used tobacco/nicotine Alcohol intake: never Substance/Drug Use: never Dietary Habits: Current diet type/program: regular Vitals/I&O/Wt Last Vital Signs Temp 98.0 F 08/02/24 02:37 Pulse 52 L 08/02/24 07:21 Resp 15 08/02/24 02:37 BP 117/79 08/02/24 07:21 Pulse Ox 99 08/02/24 07:21 O2 Del Method Room Air 08/02/24 02:37 08/01/24 08/02/24 08/02/24 22:59 06:59 14:59 Intake Total 98.75 / 98.75 Balance 98.75 / 98.75 Weight last 48 hrs Weight 145 lb Physical Exam 2 Const: COMMON NORMALS: no acute distress, average body habitus, patient oriented x3 and alert GENERAL APPEARANCE: cooperative and comfortable O RIENTATION/CONSCIOUSNESS: Yes awake HENMT: COMMON NORMALS: normocephalic and atraumatic HEAD & SCALP: n ormocephalic and atraumatic Eye: GENERAL EYE: appearance normal, both eyes and all related structures Chest: COMMONS NORMALS: normal inspection of the chest Resp: COMMON NORMALS: normal respiratory effort EFFORT & INSPECTION: Yes able to speak in complete sentences and Yes symmetric chest movement Extremity: LEFT LOWER EXTREMITY: Yes hip joint (No evidence of ecchymosis.) Left hip: Yes ROM (Not evaluated secondary to fracture), Yes neurovascular exam (Family notes patient has moved her foot) and Yes other (Patient is sleeping and is unresponsive to commands at the moment) Neuro: COMMON NORMALS: patient oriented x3 SENSORIUM/ORIENTATION: Yes alert Psych: COMMON NORMALS: mental status grossly normal APPEARANCE: Yes grossly normal ATTITUDE: Yes calm and Yes engaged ATTENTION/CONCENTRATION: Yes attention grossly intact Skin: COMMON NORMALS: no rashes or lesions noted GENERAL SKIN EXAM: no rashes or lesions noted Urinary Catheter Management: [place]: Cath Placed During This Visit: yes Urinary Catheter Date of Insertion: 08/02/24 Urinary Catheter Time of Insertion: 04:59 Data 08/02/24 06:24 08/02/24 06:24 Other Imaging: My impression: I have personally reviewed both the patient's hip x-rays and CT. There is significant displacement of the femoral head from the neck. This will require hemiarthroplasty. There is no comminution of significance noted. A&P Assessment and plan (1) Subcapital fracture of left hip: Patient was admitted through the emergency department last evening after her family heard a thump at approximately 2 AM. When they went to check on her, she was on the floor. The patient was brought to the emergency department where imaging study showed a left subcapital hip fracture. There was some question as to the level of displacement, and a CT scan was ordered. The fracture demonstrates significant displacement and will require a hemiarthroplasty as treatment. Surgical procedure was discussed with the family, and consents were signed. Questions were answered at that time. Qualifiers: Encounter type: initial encounter Fracture type: closed Qualified Code(s): S72.012A - Unspecified intracapsular fracture of left femur, initial encounter for closed fracture Consult Attestations 2 Medical Necessity Statement: Per hospitalist team Coding Level of Care Code Acute Code for [facility] Diagnoses Closed subcapital fracture of left femur, initial encounter S72.012A Encounter type: initial encounter Fracture type: closed
[2024-08-02] MEDS: donepezil 5 MG Tablet 10 MG PO (08:57)
--- NOTE | 2024-08-02 09:12 | PC.NURSE ---
Patients daughter states pt no longer takes Zyprexa at home. Medication order stopped at this time.
--- NOTE | 2024-08-02 10:19 | P.ANESASSM_ITS ---
Pre-Anesthetic Assessment Height/Weight: Height 5 ft 7 in Weight 145 lb Temp Pulse Resp BP Pulse Ox O2 Del Method O2 Flow Rate 98.0 F 91 16 117/79 94 Nasal Cannula 1 08/02/24 02:37 08/02/24 09:53 08/02/24 09:53 08/02/24 07:21 08/02/24 09:53 08/02/24 09:53 08/02/24 09:53 Preop Diagnosis: Left hip fracture Operation Date: 08/02/24 11:00 Proposed Procedures p Hemiarthroplasty Hip(Left) - Shefali Alba MD Was Beta Antonio taken within 24 hours: N/A Was Clonidine taken within 24 hours: N/A Last intake: Intake Last Liquid Date 08/01/24 Last Liquid Time 15:00 Last Solid Date 08/01/24 Last Solid Time 15:00 Social No alcohol and No tobacco Exam clear to auscultation bilaterally and regular rate & rhythm Patient is pretty sedated currently, alert to self only Airway Submandibular: within normal limits Cervical ROM: within normal limits Mallampati: Class II Dentition: other (Edentulous) Anesthetic Plan ASA status: 3 Anesthesia: General Other: No prior issues with anesthesia Patient presented this morning after experiencing a fall at 2 AM NPO since 3 PM yesterday Per patient's family, patient has had numerous falls over the last few months. History of dementia, uses a walker at home, lives with daughter. Alert to self only Hypertension on lisinopril Previously's has seen Dr. Parra for syncope collapse and possible sinus bradycardia. Event monitor was unremarkable Stress test negative, echo showing EF 55% Labs reviewed today, acceptable for surgery EKG showing sinus rhythm with PVCs Plan for general anesthesia Medications/Allergies Home Medications Medication Instructions Recorded Confirmed Last Taken Type aspirin 81 mg chewable tablet 81 mg PO DAILY 05/29/21 08/02/24 08/01/24 History lisinopril 40 mg tablet 40 mg PO DAILY 05/29/21 08/02/24 08/01/24 History atorvastatin 40 mg tablet (Lipitor) 40 mg PO DAILY #90 tabs 06/29/21 08/02/24 08/01/24 Rx donepezil 10 mg tablet 10 mg PO DAILY 12/12/23 08/02/24 08/01/24 History olanzapine 5 mg tablet 5 mg PO DAILY 12/12/23 08/02/24 08/01/24 History ciprofloxacin HCl 500 mg tablet 500 mg PO BID 08/02/24 08/02/24 08/01/24 History hydrocortisone 2.5 % topical cream 1 applic topical TID 08/02/24 08/02/24 08/01/24 History with perineal applicator (Procto-Med HC) quetiapine 25 mg tablet 25 mg PO QPM 08/02/24 08/02/24 08/01/24 History Allergies Allergy/AdvReac Type Severity Reaction Status Date / Time No Known Allergies Allergy Verified 08/02/24 02:43 Current Medications Generic Name Dose Route Start Last Admin Trade Name Yairq PRN Reason Stop Dose Admin Donepezil HCl 10 mg 08/02/24 09:00 08/02/24 08:57 Donepezil 5 Mg Tablet PO 10 mg DAILY PATIENCE Administration Dextrose/Sodium Chloride 1,000 mls @ 75 mls/hr 08/02/24 06:45 08/02/24 06:44 Dextrose 5%-Sod Chloride 0.9% IV 75 mls/hr .[id number] PATIENCE Administration [facility] Anesthesia Medical History (Updated 08/02/24 @ 08:24 by Shefali Alba MD) Atrial fibrillation Acute UTI Syncope and collapse No pertinent family history Diabetes mellitus Hyperlipidemia Hypertension Surgical History No pertinent past surgical history Family History Son CAD (coronary artery disease) [place] in 30's Mother CAD (coronary artery disease) Diabetes Sister Dementia Daughter Diabetes Denies family history of Clotting disorder Chronic kidney disease (CKD) Suicide Anesthesia complication Bleeding disorder Lung disease Cancer Stroke Social History Smoking and tobacco/nicotine status: never used tobacco/nicotine Alcohol intake: never Substance/Drug Use: never Data Anesthesia 08/02/24 06:24 08/02/24 06:24 Short CBC 08/02/24 Range/Units 06:24 WBC 9.15 (3.29-11.43) 10^3/uL Hgb 12.60 (11.27-16.99) g/dL Hct 40.4 (36-47) % MCV 94.0 (85-98) fl Plt Count 143 L (157-399) 10^3/cmm Neut % (Auto) 86.3 % Neut # (Auto) 7.89 H (1.8-7.7) 10^3/uL BMP 08/02/24 06:24 Sodium 141 Potassium 4.1 Chloride 104 Carbon Dioxide 26 BUN 20 Creatinine 1.2 H Glucose 127 H Calcium 9.7 Liver Function 08/02/24 Range/Units 06:24 Total Bilirubin 0.4 (0.15-1.2) mg/dL AST 19 (0-32) U/L ALT 15 (0-33) U/L Alkaline Phosphatase 84 (35-105) U/L Albumin 3.7 (3.5-5.2) g/dL Urine 08/02/24 Range/Units 04:31 Urine Color Yellow (Yellow) Urine Appearance Clear (CLEAR) Urine pH 6.5 (5-7) Ur Specific [place] 1.014 (1.005-1.030) Urine Protein Negative (Negative) Urine Glucose (UA) Negative (Normal) Urine Ketones Negative (Negative) Urine Nitrate Negative (Negative) Urine Bilirubin Negative (Negative) Ur Leukocyte Esterase Negative (Negative) Coags 08/02/24 06:24 PT 13.40 INR 0.99 APTT 20.3 L C-Reactive Protein 3.0 Cardiac Studies: 2 Echocardiogram 08/24/21 Sestamibi Stress Test (Cardiology) 07/25 Cardiac Event Monitor 06/01/21
[2024-08-02] MEDS: acetaminophen 1,000 MG/100 ML PIGGYBACK 400 MG IV ×2 (12:18→20:10)
[2024-08-02] MEDS: gabapentin 300 mg Capsule PO (12:20)
[2024-08-02] MEDS: CELEcoxib 200 mg Capsule 400 MG PO (12:20)
--- NOTE | 2024-08-02 12:33 | PC.NURSE ---
Pt to OR at 1155.
[2024-08-02] MEDS: ceFAZolin 2,000 mg SDV 2000 MG IVP ×2 (13:34→21:12)
[2024-08-02] MEDS: ceFAZolin 1,000 mg SDV 1000 MG IRRIGATION (14:53)
[2024-08-02] MEDS: VANCOMYCIN ADD-Vantage 1,000 MG VIAL 1000 MG XX (15:25)
--- NOTE | 2024-08-02 16:12 | XRR_ITS ---
PROCEDURE INFORMATION: Exam: XR Pelvis Exam date and time: 08/02/2024 4:13 PM Age: 88 years old Clinical indication: Screening exam; Prior surgery; Surgery date: Post-operative (0-2 days); Surgery type: Post op lt hemiarthroplasty; Additional info: Status post left hip hemiarthroplasty, low ap pelvis TECHNIQUE: Imaging protocol: Radiologic exam of the pelvis. Views: 1 or 2 view. COMPARISON: CR (PELVIS, ) 08/02/2024 3:55 AM FINDINGS: Bones/joints: Status post left hip hemiarthroplasty. Hardware appears intact without complication. No periprosthetic fracture visualized. Alignment is anatomic. Soft tissues: Unremarkable. Vasculature: Diffuse vascular calcifications. XR/XR pelvis 1-2V* [id number] IMPRESSION: Left hip hemiarthroplasty without apparent complication.
--- NOTE | 2024-08-02 16:13 | P.OP_ITS ---
Operative Report Date of procedure: August 02, 2024 Pre-op diagnosis: Left subcapital hip fracture Post-op diagnosis: Left subcapital hip fracture Post-op findings: Displaced left subcapital hip fracture Procedure done: Left bipolar hip arthroplasty Implants: The Evans insignia hip system with a size 6 standard offset insignia stem with a +0 offset by 28 mm outer diameter femoral head and a universal bipolar head component size 46 outer diameter by 28 mm inner diameter Specimens removed/disposition: Femoral head, disposed of Pathology: None Surgeon: Shefali Alba MD Curb Attendant: [facility] certified pharmacy technician Anesthesia: General (Intubated, ASA 3) Estimated blood loss (mL): 50 IV fluids (mL): 1,200 Urine output (mL): 150 Complications: None Findings: Displaced left subcapital hip fracture Condition: stable Disposition: PACU (Then return to floor for postoperative rehabilitation and pain management) Brief History: This 88-year-old woman was in her usual state of health when she fell at approximately 2 AM. Reportedly, she got up to use the bedside commode approached her daughter's room to have assistance. She does suffer with dementia. The patient fell to the floor, and the family heard a thump. She was brought to the emergency department where she was found to have a displaced subcapital left hip fracture. In the preop holding area, the patient's family was with her, and consents were signed. Questions were answered. Procedure: The patient was brought to the operating theater, and after undergoing adequate general anesthesia, ASA 3, she was transferred to the operating room table. The patient was placed in the full lateral position and held in place with the pegboard. Patient's left lower extremity was draped free and was subsequently prepped and further draped free. A surgical pause was performed prior to commencement of the surgical procedure. During the surgical pause, we confirmed the site and side of surgery as well as availability of equipment. Additionally, we confirmed preoperative surgical markings as well as preoperative antibiotic, Ancef 2 g. X-rays are also reviewed during this time. Following the surgical pause, an incision was made centering over the greater trochanter continuing proximally and distally as necessary to allow access to the hip joint. Dissection continued through skin and soft tissue using scalpel. Hemostasis was obtained using electrocautery. Tensor fascia rambo was identified and incised longitudinally. Sciatic nerve was identified and protected throughout the surgical procedure. A Charnley U retractor was placed with care being taken to protect the sciatic nerve during placement. The hip was internally rotated. Piriformis muscle was then identified, tagged, and subsequently incised from the posterior aspect of the hip joint. The remaining short external rotators were also incised. These were then elevated off the capsule, and the capsule was entered in a T-type fashion. Each side of the capsule was then tagged. The proximal femur was brought into an appropriate position, and the femoral neck osteotomy was accomplished. This was in ap propriate position for placement of the prosthetic component. Femoral head was then removed from the acetabulum utilizing a corkscrew. It was subsequently measured. The appropriate size trial was chosen. This was a size 46 mm universal bipolar head component. Size 46 mm trial fit nicely. A 47 mm was also trialed but seemed to large, and the 45 mm seemed too small. Therefore size 46 mm was the chosen size for final implantation. Femoral english as a second language teacher was then placed, and attention was directed to the proximal femur. Initially, the proximal femur was addressed with a box chisel, and this was followed by a canal finder and subsequently broaches. The hip was broached to a size 6. Size 6 broach was noted to fit nicely and have good fit and fill. Therefore this was to be the chosen component. Trial r eduction was accomplished with a 46 mm universal head bipolar component and a +0 mm offset by 28 mm outer diameter femoral head. With this, the above-noted stabilities were accomplished. This was felt to be appropriate and therefore trial components were removed and the hip was irrigated. Acetabulum was evaluated for any loose bodies or other soft tissues requiring resection. We then prepared for implantation. The size 6 standard offset insignia hip stem was impacted into position. This was placed without difficulty. Onto this was placed the construct of the universal head bipolar component size 46 mm outer diameter by 26 mm inner diameter, and the 28 mm diameter +0 offset femoral head. This was placed onto the trunnion of the femoral component. It was impacted into position and pulled upon to assure that there was no dissociation. Once again the hip was irrigated and suctioned dry and was reduced. We then irrigated the hip further with 20 mL of Betadine mixed into 500 mL of normal saline. This was allowed to remain in the wound for approximately 3 minutes. It was then suctioned dry and irrigated with normal saline. This was suctioned dry again and closure was accomplished with 0 Vicryl in the capsular tissues followed by reattachment of the piriformis with 0 Vicryl. Additionally, the tensor was closed with 0 Vicryl in an interrupted fashion. Subcutaneous tissues were closed with a combination of 2-0 Monocryl strata fix. The skin was closed with 3-0 Monocryl strata fix. This was followed by Shaun Londono. The patient was returned the Recovery Room in satisfactory condition. There were no complications. The patient will be discharged to the floor for postoperative rehabilitation and pain management. Related Problem List Diagnoses (1) Subcapital fracture of left hip:
--- NOTE | 2024-08-02 16:31 | ANE.PACU2 ---
Inpatient post-anesthesia follow up: Airway intact: Yes Vital signs: Temperature 98.1 F Pulse Rate 58 Respiratory Rate 14 Blood Pressure 104/62 Pulse Oximetry 96 Oxygen Delivery Me thod Room Air Oxygen Flow Rate 2 Fraction of Inspir ed Oxygen Hydration adequate: Yes Nausea and vomiting: No Pain level: 1 Mental status: Baseline
[2024-08-02] MEDS: mupirocin oint 22 gm 1 APPLIC NASAL (17:35)
[2024-08-02] MEDS: tranexamic acid 1,000 MG/100 ML PREMIX 600 MG IV (19:53)
--- NOTE | 2024-08-02 22:09 | PC.NURSE ---
Bearhugger applied at this time for active patient warming. Patient care nurse KAMILA Gray notified.
[2024-08-02 22:42] LABS: Glucose Point of Care 230 mg/dL (70-110)
[2024-08-03] VITALS (12 sets, daily range): BP systolic 104–157; BP diastolic 52–62; PULSE 55–68; RESP 14–17; TEMP 34.9–36.8; O2SAT 91–97
[2024-08-03 00:49] LABS: ABG PCO2 43.3 mmHg (35-45); ABG PH Result 7.32 (7.35-7.45); Base Excess ABG -3.7 mmol/L (-2.0-2.0); Blood Gas Allen Test Pos; Blood Gas Sample Site Brachial, right; Blood Gas Sample Type Arterial; HCO3 ABG 22.3 mmol/L (22-26); PO2 ABG 77.9 mmHg (80.0-100.0); PO2 FiO2 Ratio Arterial Blood 370
[2024-08-03] MEDS: hydrocortisone 100 mg/2 mL SDV IVP (00:51)
[2024-08-03] MEDS: acetaminophen 1,000 MG/100 ML PIGGYBACK 400 MG IV ×2 (03:02→12:25)
[2024-08-03] MEDS: ceFAZolin 2,000 mg SDV 2000 MG IVP ×2 (04:54→14:41)
[2024-08-03 06:50] LABS: Basophils % 0.2 %; Hematocrit 32.8 % (36-47); Lymphocytes # 0.4 10^3/uL (0.8-4.8); Lymphocytes % 6.5 %; Mean Corpuscular HGB Conc 30.5 g/dL (30-55); Mean Corpuscular Hemoglobin 29.3 pg (27-33); Mean Corpuscular Volume 96.2 fl (85-98); Mean Platelet Volume 9.2 fL (7.4-10.4); Monocytes # 0.3 10^3/uL (0.2-0.9); Monocytes % 3.8 %; Neutrophils # 5.91 10^3/uL (1.8-7.7); Nucleated Red Blood Cells % 0 %; Platelet Count 120 10^3/cmm (157-399); Red Blood Count 3.41 10^6/uL (3.85-5.65); Red Cell Distribution Width 13.6 % (12.1-15.1); White Blood Count 6.63 10^3/uL (3.29-11.43)
[2024-08-03 07:08] LABS: Anion Gap 14.9 (5-19); Blood Urea Nitrogen 21 mg/dL (8-23); C Reactive Protein 39.2 mg/L (0.0-4.9); Calcium 7.9 mg/dL (8.5-10.5); Carbon Dioxide 20 mmol/L (22-29); Chloride 106 mmol/L (98-107); Creatinine Clr Calc Pharmacy 31.9445; Glucose 217 mg/dL (65-115); Magnesium 1.6 mg/dL (1.7-2.3); Osmolality Calculated 294 mOsm/kg (285-295); Potassium 3.9 mmol/L (3.5-5.1); Sodium 137 mmol/L (136-145)
[2024-08-03] MEDS: multivitamin therapeutic Tablet 1 TAB PO (08:34)
[2024-08-03] MEDS: cholecalciferol (vitamin D3) 1,000 unit Tablet 1000 UNIT PO (08:34)
[2024-08-03] MEDS: sennosides-docusate Tablet 2 TAB PO ×2 (08:34→18:24)
[2024-08-03] MEDS: donepezil 5 MG Tablet 10 MG PO (08:34)
[2024-08-03] MEDS: calcium carbonate 500 mg Chew Tablet 1000 MG PO ×2 (08:34→18:24)
[2024-08-03] MEDS: iron polysaccharide complex 150 mg Capsule PO ×2 (08:34→18:24)
[2024-08-03] MEDS: aspirin 325 mg EC Tablet PO (08:34)
[2024-08-03] MEDS: mupirocin oint 22 gm 1 APPLIC NASAL (08:42)
[2024-08-03] MEDS: chlorhexidine gluconate 0.12% Btl 473 mL 30 ML MUCOUS MEM ×2 (08:42→21:59)
--- NOTE | 2024-08-03 09:55 | PC.CHAP ---
Pastoral Care Encounter/Spiritual Assessment Type of Contact [] Declined auto hauler visit [] Patient/Family/Request visit [] Outpatient visit [] Follow-up visit [] Physician referral [] Code/Alert [x] Routine visit [] Staff referral [] Actively dying [] Patient sleeping [x] Family support [] [] Out of room [] Palliative care [] [] Receiving care in room [] Pre-surgical visit [] Trauma [] Long length of stay [] ICU visit [] Other: Relational/Emotional Strength [] Patient feels connected with others/family/visitors/staff [] Distress [] Loneliness/isolation [] Abandonment Spirituality of Patient [x] Person of Felicitas [] Attends Rastafarian of their Felicitas [x] Believes in Prayer [] Reads Bible or Tenriism materials [] There are Spiritual issues to be addressed Line Crewman Interventions [x] Prayer [x] Active listening [] Non-anxious presence [] Spiritual/emotional support [] Crisis/trauma care [] Spiritual counseling [] Bereavement support [] Provided bereavement packet [x] Provided Bible/devotional materials [] Provided toy/stuffed animal, coloring book to patient or family member [] Provided Communion [] Anointing/[place] [x] Salvation [x] Completed spiritual assessment [] Other: Impact on Illness or Injury [] Angry [] Fearful [] Anxious [] Often cries [] Exhaustion [] Unable to work [] Unable to attend spiritism [] Unable to walk/stand [] Unable to read [] Unable to drive [] Unable to eat/drink [] Unable to sleep [] Unable to be with family [] Patient intubated [] Other: Summary Time spent with patient 15 min
[2024-08-03] MEDS: dextrose 5%-sod chloride 0.9% 1,000 ML 75 ML IV ×2 (12:25→21:59)
--- NOTE | 2024-08-03 14:00 | P.PN_ITS ---
Subjective 2 Subjective: seen this am denies pain family at bedside walked 4 ft with PT Vitals/I&O/Wt Last Vital Signs Temp 97.9 F 08/03/24 08:00 Pulse 63 08/03/24 09:10 Resp 16 08/03/24 09:10 BP 116/53 08/03/24 08:00 Pulse Ox 96 08/03/24 09:10 O2 Del Method Room Air 08/03/24 09:10 O2 Flow Rate 2 08/02/24 18:07 08/02/24 08/03/24 08/03/24 22:59 06:59 14:59 Intake Total 1640 / 1838.75 100 / 1938.75 1105 / 1105 Output Total 425 / 700 0 / 700 200 / 200 Balance 1215 / 1138.75 100 / 1238.75 905 / 905 Weight last 48 hrs Weight 73.527 kg Weight 65.771 kg Weight 65.771 kg Physical Exam 2 Narrative: Pleasant and cooperative female S1, S2 on room air resting comfortably in bed left leg wrapped in bandage Normal blood pressure Pleasant cooperative Able to answer my questions AOx3 [place] catheter in place Urinary Catheter Management: [place]: Cath Placed During This Visit: yes Reason for Continuing Indwelling Catheter: Perioperative Use in Selected Surgeries Urinary Catheter Date of Insertion: 08/02/24 Urinary Catheter Time of Insertion: 04:59 Data 08/03/24 06:12 08/03/24 06:12 A&P Assessment and plan (1) Hypertension: Qualifiers: Hypertension type: primary hypertension Qualified Code(s): I10 - Essential (primary) hypertension (2) Symptomatic sinus bradycardia: (3) PAD (peripheral artery disease): (4) Type 2 diabetes mellitus: (5) Closed fracture of left hip: (6) Peripheral neuropathy: Plan Mechanical fall Patient is bradycardic with stable blood pressure On review of records: Dr. Parra has evaluated the patient for syncope collapse and possibility of sinus bradycardia, event monitor was reviewed which did not show remarkable bradycardia, patient was on metoprolol at that time which was discontinued, her stress test and echo was unremarkable This time patient is endorsing tripping over her walker Mechanical fall causing hip fracture Dr. Romero consulted N.p.o. Patient not on any anticoagulating agent Sinus rhythm, sinus bradycardia TSH and EKG [place] catheter placed Opioids along bowel regimen Start IV fluids Last meal was around 3 PM yesterday DVT prophylaxis covered with SCDs for now Family is adamant that they do not want any senior care placement, they would like to take Kimberlee back home after surgery, goals of care discussed with the daughter at the bedside she is endorsing DNR/DNI Patient has dementia does not have capacity to make decision for herself Patient does not have any significant history of coronary disease other than bradycardia Previous EKG showed sinus rhythm with right bundle branch block/bifascicular block For hypertension she takes amlodipine avoid AV sudarshan blocking agents I will also hold lisinopril perioperatively Patient is diabetic will need consistent carb diet after surgery 08/03/2024 - continue consistent carb diet - plan to send to SNF monitor HB recheck cbc in AM mag 1.6, order 2 mg IV x1 family at bedside Attestations 2 Medical Necessity Statement*: More than 2 midnights anticipated Diagnoses Primary hypertension I10 Hypertension type: primary hypertension Symptomatic sinus bradycardia R00.1 PAD (peripheral artery disease) I73.9 Type 2 diabetes mellitus E11.9 Closed fracture of left hip S72.002A Peripheral neuropathy G62.9
[2024-08-03] MEDS: magnesium sulfate premix 2 GM/50 ML PIGGYBACK IV (14:41)
--- NOTE | 2024-08-03 17:13 | P.CONIM_ITS ---
Providers/Reason For Consult 2 Attending Physician: Irene Thao MD Primary Care Provider: Dayday Chandler DO History of Present Illness History of Present Illness Sara Santoyo is a 88 year old female Medications/Allergies Home Medications Medication Instructions Recorded Confirmed Last Taken Type aspirin 81 mg chewable tablet 81 mg PO DAILY 05/29/21 08/02/24 08/01/24 History lisinopril 40 mg tablet 40 mg PO DAILY 05/29/21 08/02/24 08/01/24 History atorvastatin 40 mg tablet (Lipitor) 40 mg PO DAILY #90 tabs 06/29/21 08/02/24 08/01/24 Rx donepezil 10 mg tablet 10 mg PO DAILY 12/12/23 08/02/24 08/01/24 History olanzapine 5 mg tablet 5 mg PO DAILY 12/12/23 08/02/24 08/01/24 History ciprofloxacin HCl 500 mg tablet 500 mg PO BID 08/02/24 08/02/24 08/01/24 History hydrocortisone 2.5 % topical cream 1 applic topical TID 08/02/24 08/02/24 08/01/24 History with perineal applicator (Procto-Med ) quetiapine 25 mg tablet 25 mg PO QPM 08/02/24 08/02/24 08/01/24 History Allergies Allergy/AdvReac Type Severity Reaction Status Date / Time No Known Allergies Allergy Verified 08/02/24 02:43 Current Medications Generic Name Dose Route Start Last Admin Trade Name Freq PRN Reason Stop Dose Admin Aspirin 325 mg 08/03/24 09:00 08/03/24 08:34 Aspirin 325 Mg Ec Tablet PO 325 mg DAILY PATIENCE Administration Calcium Carbonate 1,000 mg 08/02/24 18:00 08/03/24 08:34 Calcium Carbonate 500 Mg Chew Tablet PO 1,000 mg BID PATIENCE Administration Chlorhexidine Gluconate 30 ml 08/02/24 17:00 08/03/24 12:31 Chlorhexidine Gluconate 0.12% Btl 473 Ml MUCOUS MEM Not Given QID PATIENCE Donepezil HCl 10 mg 08/02/24 09:00 08/03/24 08:34 Donepezil 5 Mg Tablet PO 10 mg DAILY PATIENCE Administration Dextrose/Sodium Chloride 1,000 mls @ 75 mls/hr 08/02/24 06:45 08/03/24 12:25 Dextrose 5%-Sod Chloride 0.9% IV 75 mls/hr .[id number] PATIENCE Administration Multivitamins Therapeutic 1 tab 08/03/24 09:00 08/03/24 08:34 Multivitamin Therapeutic Tablet PO 1 tab DAILY PATIENCE Administration Mupirocin 1 applic 08/02/24 18:00 08/03/24 08:42 Mupirocin Oint 22 Gm NASAL 08/07/24 17:59 1 applic BID PATIENCE Administration Polysaccharide Iron Complex 150 mg 08/02/24 18:00 08/03/24 08:34 Iron Polysaccharide Complex 150 Mg Capsule PO 150 mg BIDWM PATIENCE Administration Senna/Docusate Sodium 2 tab 08/02/24 18:00 08/03/24 08:34 Sennosides-Docusate Tablet PO 2 tab BID PATIENCE Administration Vitamin D 1,000 unit 08/03/24 09:00 08/03/24 08:34 Cholecalciferol (Vitamin D3) 1,000 Unit Tablet PO 1,000 unit DAILY PATIENCE Administration PFSH Acute 2 PFSH: Medical History (Updated 08/02/24 @ 08:24 by Shefali Alba MD) Atrial fibrillation Acute UTI Syncope and collapse No pertinent family history Diabetes mellitus Hyperlipidemia Hypertension Surgical History No pertinent past surgical history Family History Son CAD (coronary artery disease) [place] in 30's Mother CAD (coronary artery disease) Diabetes Sister Dementia Daughter Diabetes Denies family history of Clotting disorder Chronic kidney disease (CKD) Suicide Anesthesia complication Bleeding disorder Lung disease Cancer Stroke Social History Smoking and tobacco/nicotine status: never used tobacco/nicotine Alcohol intake: never Substance/Drug Use: never Vitals/I&O/Wt Last Vital Signs Temp 98.1 F 08/03/24 15:30 Pulse 58 L 08/03/24 15:30 Resp 14 08/03/24 15:30 BP 104/62 08/03/24 15:30 Pulse Ox 96 08/03/24 09:10 O2 Del Method Room Air 08/03/24 15:30 O2 Flow Rate 2 08/02/24 18:07 08/03/24 08/03/24 08/03/24 06:59 14:59 22:59 Intake Total 100 / 1938.75 1205 / 1205 Output Total 0 / 700 350 / 350 Balance 100 / 1238.75 855 / 855 Weight last 48 hrs Weight 162 lb 1.6 oz Weight 145 lb Weight 145 lb Physical Exam 2 Urinary Catheter Management: [place]: Cath Placed During This Visit: yes Reason for Continuing Indwelling Catheter: Perioperative Use in Selected Surgeries Urinary Catheter Date of Insertion: 08/02/24 Urinary Catheter Time of Insertion: 04:59 Data 08/03/24 06:12 08/03/24 06:12 Coding Level of Care Code Acute Code for Chg Fwd
--- NOTE | 2024-08-03 17:17 | PC.NURSE ---
Fall: Code Blue button activated by Jose Napoles LPN, when this nurse responded pt was laying flat on her back with an SCD to the right leg and a foot pump to the left. Pt stated she was trying to get up to pee. Pt had pop catheter which was out when she fell with balloon inflated and intact. Pt has history of dementia and was able to answer questions to her mental capacity. Pt inspected for injuries with no injuries noted. Pupils equal and reactive and vital signs WNL. The bed alarm had been off as the family had previously been with pt and did not notify nursing staff when they left. Dr. Alba and Dr. Thao notified. Orders placed for a head CT as well as hip CT.
--- NOTE | 2024-08-03 17:17 | CTR_ITS ---
PROCEDURE INFORMATION: Exam: CT Head Without Contrast Exam date and time: 08/03/2024 5:36 PM Age: 88 years old Clinical indication: Injury or trauma; Fall; Blunt trauma (contusions or hematomas); Consciousness not specified; Injury date: 08/03/2024; Additional info: S/P fall TECHNIQUE: Imaging protocol: Computed tomography of the head without contrast. Radiation optimization: All CT scans at this facility use at least one of these dose optimization techniques: automated exposure control; mA and/or kV adjustment per patient size (includes targeted exams where dose is matched to clinical indication); or iterative reconstruction. COMPARISON: CT head wo con* [id number] 08/21/2021 9:43 PM RADIATION DOSE METRICS: Total DLP (mGy-cm): 1183.13 FINDINGS: Brain: No intracranial hemorrhage. There is global parenchymal volume loss. Periventricular white matter hypoattenuation is nonspecific but most likely due to small vessel disease. No evidence of acute territorial infarct or cerebral edema. No mass effect or midline shift. Cerebral ventricles: Ventricles are symmetrical. Paranasal sinuses: Visualized sinuses are unremarkable. No fluid levels. Mastoid air cells: Visualized mastoid air cells are well aerated. Bones: Unremarkable. No acute fracture. Soft tissues: Unremarkable. CT/CT head wo con* [id number] IMPRESSION: No acute intracranial findings.
--- NOTE | 2024-08-03 17:38 | CTR_ITS ---
PROCEDURE INFORMATION: Exam: CT Pelvis Without Contrast, Skeleton Exam date and time: 08/03/2024 5:40 PM Age: 88 years old Clinical indication: Injury or trauma; Fall; Blunt trauma (contusions or hematomas); Injury date: 08/03/2024; Prior surgery; Surgery date: Post-operative (0-2 days); Surgery type: Left hip; Additional info: Fall after surgery TECHNIQUE: Imaging protocol: Computed tomography of the pelvis without contrast. Exam focused on the skeleton. Radiation optimization: All CT scans at this facility use at least one of these dose optimization techniques: automated exposure control; mA and/or kV adjustment per patient size (includes targeted exams where dose is matched to clinical indication); or iterative reconstruction. COMPARISON: CT bony pelvis [id number] 08/02/2024 3:29 AM RADIATION DOSE METRICS: Total DLP (mGy-cm): 441.7 FINDINGS: Vasculature: Scattered vascular calcifications. Reproductive: Status post hysterectomy. Bones/joints: Left hip arthroplasty. Hardware appears intact. No periprosthetic fracture. No fracture within the pelvic bones. [id number] degenerative changes of the right hip with joint space narrowing and marginal osteophytes. Degenerative changes of the visualized lumbar spine. Soft tissues: Subcutaneous gas and fat stranding in the soft tissues surrounding the left hip from recent surgery. CT/CT bony pelvis [id number] IMPRESSION: Left hip arthroplasty appears intact. No acute fracture visualized.
--- NOTE | 2024-08-03 18:10 | PM.PN ---
Subjective Subjective: Patient was seen at approximately noon time. The patient's family was with her at bedside when she was seen. She was working with therapy and doing well. Patient and family are in agreement with [facility] at time of discharge secondary to her dementia and problems returning her to her independent activity level. Vitals/I&O/Wt Last Vital Signs Temp 98.1 F 08/03/24 15:30 Pulse 58 L 08/03/24 15:30 Resp 14 08/03/24 15:30 BP 104/62 08/03/24 15:30 Pulse Ox 96 08/03/24 09:10 O2 Del Method Room Air 08/03/24 15:30 O2 Flow Rate 2 08/02/24 18:07 08/03/24 08/03/24 08/03/24 06:59 14:59 22:59 Intake Total 100 / 1938.75 1205 / 1205 Output Total 0 / 700 350 / 350 Balance 100 / 1238.75 855 / 855 Weight last 48 hrs Weight 162 lb 1.6 oz Weight 145 lb Weight 145 lb Physical Exam Const: COMMON NORMALS: no acute distress, average body habitus, patient oriented x3 and alert GENERAL APPEARANCE: cooperative and comfortable ORIENTATION/CONSCIOUSNESS: Yes awake HENMT: COMMON NORMALS: normocephalic and atraumatic HEAD & SCALP: normocephalic and atraumatic Eye: GENERAL EYE: appearance normal, both eyes and all related structures Chest: COMMONS NORMALS: normal inspection of the chest Resp: COMMON NORMALS: normal respiratory effort EFFORT & INSPECTION: Yes able to speak in complete sentences and Yes symmetric chest movement Extremity: LEFT LOWER EXTREMITY: Yes hip joint (No significant ecchymosis. Dressings are dry and intact) Left hip: Yes ROM (Not evaluated.) and Yes neurovascular exam (Intact distally) Neuro: COMMON NORMALS: patient oriented x3 SENSORIUM/ORIENTATION: Yes alert Psych: COMMON NORMALS: mental status grossly normal APPEARANCE: Yes grossly normal ATTITUDE: Yes calm and Yes engaged ATTENTION/CONCENTRATION: Yes attention grossly intact Skin: COMMON NORMALS: no rashes or lesions noted GENERAL SKIN EXAM: no rashes or lesions noted Urinary Catheter Management: [place]: Cath Placed During This Visit: yes Reason for Continuing Indwelling Catheter: Perioperative Use in Selected Surgeries Urinary Catheter Date of Insertion: 08/02/24 Urinary Catheter Time of Insertion: 04:59 Data 08/04/24 06:35 08/04/24 06:35 A&P Assessment and plan (1) Subcapital fracture of left hip: Patient was admitted through the emergency department after her family heard a thump at approximately 2 AM. When they went to check on her, she was on the floor. The patient was brought to the emergency department where imaging study showed a left subcapital hip fracture. After evaluation and discussion with the family, plans were made for bipolar hip arthroplasty. Patient underwent this on August 02. She did well with the surgery and was admitted to the floor postoperatively for postoperative rehabilitation and pain management. Is felt that she would likely benefit from [facility] at the time of discharge due to dementia and difficulty understanding hip precautions and general overall concerns with rehabilitation. Qualifiers: Encounter type: initial encounter Fracture type: closed Qualified Code(s): S72.012A - Unspecified intracapsular fracture of left femur, initial encounter for closed fracture Attestations Medical Necessity Statement*: Per hospitalist team Coding Level of Care Code Acute Code for [facility] Diagnoses Closed subcapital fracture of left femur, initial encounter S72.012A Encounter type: initial encounter Fracture type: closed
--- NOTE | 2024-08-03 18:20 | P.MISC_ITS ---
Miscellaneous Note Purpose of Documentation: Fall documentation Note: Patient fell in her room shortly after her family had left. Reportedly, she got up to go to the bathroom. The bed alarm had been off as the family had been with her, and apparently, nursing staff was unavailable the family had left. She will be receiving a head CT as well as the hip CT which was ordered by the hospitalist team. I have reviewed the hip CT and there is no evidence of karmen prosthetic fracture or hip dislocation.
[2024-08-03] MEDS: acetaminophen 500 mg Tablet 1000 MG PO ×2 (18:24→23:29)
[2024-08-04] VITALS (8 sets, daily range): BP systolic 108–135; BP diastolic 55–80; PULSE 52–64; RESP 13–22; TEMP 36.3–37; O2SAT 93–100
[2024-08-04] MEDS: morphine 4 mg/mL SDV 1 mL IVP (05:16)
[2024-08-04 07:30] LABS: Basophils % 0.4 %; Eosinophils # 0.1 10^3/uL (0.0-0.8); Hematocrit 30.3 % (36-47); Lymphocytes # 1.2 10^3/uL (0.8-4.8); Lymphocytes % 21.9 %; Mean Corpuscular HGB Conc 30.7 g/dL (30-55); Mean Corpuscular Hemoglobin 29.9 pg (27-33); Mean Corpuscular Volume 97.4 fl (85-98); Mean Platelet Volume 9.6 fL (7.4-10.4); Monocytes # 0.3 10^3/uL (0.2-0.9); Monocytes % 5.5 %; Neutrophils # 3.81 10^3/uL (1.8-7.7); Nucleated Red Blood Cells % 0 %; Platelet Count 105 10^3/cmm (157-399); Red Blood Count 3.11 10^6/uL (3.85-5.65); Red Cell Distribution Width 13.9 % (12.1-15.1); White Blood Count 5.44 10^3/uL (3.29-11.43)
[2024-08-04 07:43] LABS: Anion Gap 8.6 (5-19); Blood Urea Nitrogen 19 mg/dL (8-23); Calcium 8.3 mg/dL (8.5-10.5); Carbon Dioxide 23 mmol/L (22-29); Chloride 111 mmol/L (98-107); Creatinine Clr Calc Pharmacy 41.1419; Glucose 115 mg/dL (65-115); Magnesium 2.3 mg/dL (1.7-2.3); Osmolality Calculated 291 mOsm/kg (285-295); Potassium 3.6 mmol/L (3.5-5.1); Sodium 139 mmol/L (136-145)
[2024-08-04] MEDS: iron polysaccharide complex 150 mg Capsule PO ×2 (08:35→16:53)
[2024-08-04] MEDS: multivitamin therapeutic Tablet 1 TAB PO (08:35)
[2024-08-04] MEDS: calcium carbonate 500 mg Chew Tablet 1000 MG PO ×2 (08:35→16:53)
[2024-08-04] MEDS: sennosides-docusate Tablet 2 TAB PO ×2 (08:35→16:53)
[2024-08-04] MEDS: donepezil 5 MG Tablet 10 MG PO (08:35)
[2024-08-04] MEDS: cholecalciferol (vitamin D3) 1,000 unit Tablet 1000 UNIT PO (08:35)
[2024-08-04] MEDS: aspirin 325 mg EC Tablet PO (08:35)
--- NOTE | 2024-08-04 12:32 | PC.OT ---
OT TREATMENT ATTEMPTED; PATIENT SLEEPING SOUNDLY AND DOES NOT AWAKEN DURING MY CONVERSATION WITH HER DAUGHTER. WILL ATTEMPT AGAIN AT A LATER TIME.
--- NOTE | 2024-08-04 12:33 | PM.PN ---
Vitals/I&O/Wt Last Vital Signs Temp 97.8 F 08/04/24 11:41 Pulse 58 L 08/04/24 11:41 Resp 16 08/04/24 11:41 BP 128/61 08/04/24 11:41 Pulse Ox 95 08/04/24 11:41 O2 Del Method Room Air 08/04/24 11:41 O2 Flow Rate 2 08/02/24 18:07 08/03/24 08/04/24 08/04/24 22:59 06:59 14:59 Intake Total 1367.5 / 2572.5 480 / 3052.5 500 / 500 Output Total 100 / 450 Balance 1367.5 / 2222.5 380 / 2602.5 500 / 500 Weight last 48 hrs Weight 71.985 kg Weight 73.527 kg Physical Exam Narrative: Pleasant and cooperative female S1, S2 on room air resting comfortably in bed Surgical dressing in place left hip area, mild edema as expected postop. No evidence of bleeding. Normal blood pressure Pleasant cooperative Able to answer my questions AOx3 [place] catheter in place Urinary Catheter Management: [place]: Cath Placed During This Visit: yes, but has since been removed by the nurse Reason for Continuing Indwelling Catheter: Perioperative Use in Selected Surgeries Urinary Catheter Date of Insertion: 08/02/24 Urinary Catheter Time of Insertion: 04:59 Date Urinary Catheter Removed: 08/03/24 Data 08/04/24 06:35 08/04/24 06:35 A&P Assessment and plan (1) Hypertension: Qualifiers: Hypertension type: primary hypertension Qualified Code(s): I10 - Essential (primary) hypertension (2) Symptomatic sinus bradycardia: (3) PAD (peripheral artery disease): (4) Type 2 diabetes mellitus: (5) Closed fracture of left hip: (6) Peripheral neuropathy: Plan Mechanical fall Patient is bradycardic with stable blood pressure On review of records: Dr. Parra has evaluated the patient for syncope collapse and possibility of sinus bradycardia, event monitor was reviewed which did not show remarkable bradycardia, patient was on metoprolol at that time which was discontinued, her stress test and echo was unremarkable This time patient is endorsing tripping over her walker Mechanical fall causing hip fracture Dr. Romero consulted N.p.o. Patient not on any anticoagulating agent Sinus rhythm, sinus bradycardia TSH and EKG [place] catheter placed Opioids along bowel regimen Start IV fluids Last meal was around 3 PM yesterday DVT prophylaxis covered with SCDs for now Family is adamant that they do not want any group home placement, they would like to take Kimberlee back home after surgery, goals of care discussed with the daughter at the bedside she is endorsing DNR/DNI Patient has dementia does not have capacity to make decision for herself Patient does not have any significant history of coronary disease other than bradycardia Previous EKG showed sinus rhythm with right bundle branch block/bifascicular block For hypertension she takes amlodipine avoid AV sudarshan blocking agents I will also hold lisinopril perioperatively Patient is diabetic will need consistent carb diet after surgery 08/03/2024 - continue consistent carb diet - plan to send to SNF Hemoglobin stable, magnesium improved 2.3, creatinine 1.0. ? Patient sustained a fall yesterday. Bed alarm was on where she attempted to move out of bed. When nursing staff entered the room patient was on the floor. CT head, CT pelvis were ordered both negative for acute dislocation or bleed. Denies any pain this morning, daughter at bedside. Discussed with Dr. Alba. Plan to discharge once insurance authorization has gone through. Attestations Medical Necessity Statement*: Awaiting placement. Diagnoses Primary hypertension I10 Hypertension type: primary hypertension Symptomatic sinus bradycardia R00.1 PAD (peripheral artery disease) I73.9 Type 2 diabetes mellitus E11.9 Closed fracture of left hip S72.002A Peripheral neuropathy G62.9
--- NOTE | 2024-08-04 14:36 | PC.OT ---
OT TREATMENT ATTEMPTED IN P.M. PATIENT SEATED IN RECLINER EATING A SANDWICH. PER P.T. STUDENT WHO ATTEMPTED TX AFTER I DID, THE PATIENT WAS BACK IN BED AND DROWSY.
[2024-08-04] MEDS: dextrose 5%-sod chloride 0.9% 1,000 ML 75 ML IV (15:17)
[2024-08-04] MEDS: acetaminophen 500 mg Tablet 1000 MG PO ×2 (15:19→23:44)
[2024-08-04] MEDS: mupirocin oint 22 gm 1 APPLIC NASAL (16:53)
[2024-08-04] MEDS: acetaminophen 500 mg Tablet PO (16:54)
[2024-08-04] MEDS: chlorhexidine gluconate 0.12% Btl 473 mL 30 ML MUCOUS MEM ×2 (16:54→20:08)
[2024-08-05] MEDS: dextrose 5%-sod chloride 0.9% 1,000 ML 75 ML IV (03:10)
[2024-08-05 03:42] VITALS: RESP 18
[2024-08-05] MEDS: morphine 4 mg/mL SDV 1 mL IVP (03:42)
[2024-08-05 03:58] VITALS: BP 114/61; PULSE 56; RESP 16; TEMP 36.6; O2SAT 93
[2024-08-05 08:03] VITALS: BP 119/57; PULSE 57; RESP 18; TEMP 36.7; O2SAT 93
--- NOTE | 2024-08-05 09:08 | PM.DCS ---
Discharge Providers Date of Admission: 08/02/24 05:59 Date of Discharge: August 05, 2024 Attending Provider at Admission: Shefali Alba MD Attending Provider at Discharge: Irene Thao MD Primary Care Provider: Dayday Chandler DO Diagnoses at Discharge Discharge Diagnosis (1) Subcapital fracture of left hip: Status: Resolved Qualifiers: Encounter type: initial encounter Fracture type: closed Qualified Code(s): S72.012A - Unspecified intracapsular fracture of left femur, initial encounter for closed fracture Reason for Visit Reason for Visit: fall-back pain Hospital Course Hospital Course History of dementia, admitted after a fall diagnosed with hip fracture status post hip fracture repair. Work with physical therapy qualified for rehab and was sent to SNF at discharge. Hemoglobin remained stable during hospitalization. Secondary risk of falls aspirin 325 daily will suffice for DVT prophylaxis. Lisinopril held at discharge due to blood pressures being soft. Physical Exam Narrative: Pleasant and cooperative female S1, S2 on room air resting comfortably in bed Surgical dressing in place left hip area, mild edema as expected postop. No evidence of bleeding. Normal blood pressure Pleasant cooperative Able to answer my questions AOx3 Urinary Catheter Management: [place]: Cath Placed During This Visit: yes, but has since been removed by the nurse Reason for Continuing Indwelling Catheter: Perioperative Use in Selected Surgeries Urinary Catheter Date of Insertion: 08/02/24 Urinary Catheter Time of Insertion: 04:59 Date Urinary Catheter Removed: 08/03/24 Discharge Data Studies Completed and Pending Completed Studies During Hospitalization Category Date Time Status CT head wo con* [id number] Stat Cat Scan 08/03/24 17:[address] lumbar spine wo con* [id number] Stat Cat Scan 08/02/24 03:[address] pelvis wo bone [CT bony pelvis [id number]] Stat Cat Scan 08/02/24 03:[address] pelvis wo bone [CT bony pelvis 87511] Stat Cat Scan 08/03/24 17:38 Completed XR chest 1V portable [id number] Stat Exams 08/02/24 03:40 Completed XR hip LT 2-3V wo/w pel* [id number] Stat Exams 08/02/24 03:40 Completed XR pelvis 1-2V* [id number] Routine Exams 08/02/24 16:12 Completed Pending at discharge Category Date Time Status BMP [Basic Metabolic Panel] Routine Lab 08/05/24 08:40 Ordered CBC Auto Diff [Complete Blood Count w/Auto] Routine Lab 08/05/24 08:40 Ordered SARS Covid-2 Antigen Stat Lab 08/05/24 09:07 Uncollected Radiology Impressions Lumbar Spine CT 08/02/24 03:15 IMPRESSION: No acute findings. No fracture. Advanced degenerate spondylosis. Chest X-Ray 08/02/24 03:40 IMPRESSION: No acute findings. Hip/Pelvis X-Ray 08/02/24 03:40 IMPRESSION: Left femoral neck fracture without intertrochanteric extension. Pelvis X-Ray 08/02/24 16:12 IMPRESSION: Left hip hemiarthroplasty without apparent complication. Head CT 08/03/24 17:17 IMPRESSION: No acute intracranial findings. Pelvis CT 08/03/24 17:38 IMPRESSION: Left hip arthroplasty appears intact. No acute fracture visualized. Laboratory Results WBC 5.44 10^3/uL (3.29-11.43) 08/04/24 06:35 RBC 3.11 10^6/uL (3.85-5.65) L 08/04/24 06:35 Hgb 9.30 g/dL (11.27-16.99) L 08/04/24 06:35 Hct 30.3 % (36-47) L 08/04/24 06:35 MCV 97.4 fl (85-98) 08/04/24 06:35 MCH 29.9 pg (27-33) 08/04/24 06:35 MCHC 30.7 g/dL (30-55) 08/04/24 06:35 RDW 13.9 % (12.1-15.1) 08/04/24 06:35 Plt Count 105 10^3/cmm (157-399) L 08/04/24 06:35 MPV 9.6 fL (7.4-10.4) 08/04/24 06:35 Neut % (Auto) 70.0 % 08/04/24 06:35 Lymph % (Auto) 21.9 % 08/04/24 06:35 [place] % (Auto) 5.5 % 08/04/24 06:35 Eos % (Auto) 2.0 % 08/04/24 06:35 Baso % (Auto) 0.4 % 08/04/24 06:35 Neut # (Auto) 3.81 10^3/uL (1.8-7.7) 08/04/24 06:35 Lymph # (Auto) 1.2 10^3/uL (0.8-4.8) 08/04/24 06:35 [place] # (Auto) 0.3 10^3/uL (0.2-0.9) 08/04/24 06:35 Eos # (Auto) 0.1 10^3/uL (0.0-0.8) 08/04/24 06:35 Baso # (Auto) 0.0 10^3/uL (0.0-0.1) 08/04/24 06:35 Nucleated RBC % (auto) 0 % 08/04/24 06:35 Nucleated RBCs # 0.0 /100WBC 08/04/24 06:35 PT 13.40 SECONDS (12.1-14.9) 08/02/24 06:24 INR 0.99 (0.8-1.2) 08/02/24 06:24 APTT 20.3 SECONDS (23.9-36.7) L 08/02/24 06:24 Specimen Type Arterial 08/03/24 00:45 Sample Site Brachial, right 12 00:45 ABG pH 7.32 (7.35-7.45) L 08/03/24 00:45 ABG pCO2 43.3 mmHg (35-45) 08/03/24 00:45 ABG pO2 77.9 mmHg (80.0-100.0) L 08/03/24 00:45 ABG PO2/FiO2 Ratio 370 08/03/24 00:45 ABG HCO3 22.3 mmol/L (22-26) 08/03/24 00:45 ABG Base Excess -3.7 mmol/L (-2.0-2.0) L 08/03/24 00:45 Minesh Test Pos 08/03/24 00:45 Hematocrit 31.0 % (37-47) L 08/03/24 00:45 O2 Delivery Device None 08/03/24 00:45 FiO2 21.0 % 08/03/24 00:45 Vp [employer] ID [email or web address] 08/03/24 00:45 Sodium 139 mmol/L (136-145) 08/04/24 06:35 Potassium 3.6 mmol/L (3.5-5.1) 08/04/24 06:35 Chloride 111 mmol/L (98-107) H 08/04/24 06:35 Carbon Dioxide 23 mmol/L (22-29) 08/04/24 06:35 Anion Gap 8.6 (5-19) 08/04/24 06:35 BUN 19 mg/dL (8-23) 08/04/24 06:35 Creatinine 1.0 mg/dL (0.5-0.9) H 08/04/24 06:35 GFR Calculation Not Reportable 08/04/24 06:35 Glucose 115 mg/dL (65-115) 08/04/24 06:35 POC Glucose 230 mg/dL (70-110) H 08/02/24 22:39 Calculated Osmolality 291 mOsm/kg (285-295) 08/04/24 06:35 Calcium 8.3 mg/dL (8.5-10.5) L 08/04/24 06:35 Magnesium 2.3 mg/dL (1.7-2.3) 08/04/24 06:35 Total Bilirubin 0.4 mg/dL (0.15-1.2) 08/02/24 06:24 AST 19 U/L (0-32) 08/02/24 06:24 ALT 15 U/L (0-33) 08/02/24 06:24 Alkaline Phosphatase 84 U/L (35-105) 08/02/24 06:24 C-Reactive Protein 39.2 mg/L (0.0-4.9) H 08/03/24 06:12 Total Protein 6.6 g/dL (6.6-8.7) 08/02/24 06:24 Albumin 3.7 g/dL (3.5-5.2) 08/02/24 06:24 Globulin 2.9 g/dL (1.3-4.6) 08/02/24 06:24 TSH Cancelled 08/02/24 Unknown Urine Color Yellow (Yellow) 08/02/24 04:31 Urine Appearance Clear (CLEAR) 08/02/24 04:31 Urine pH 6.5 (5-7) 08/02/24 04:31 Ur Specific Hart 1.014 (1.005-1.030) 08/02/24 04:31 Urine Protein Negative (Negative) 08/02/24 04:31 Urine Glucose (UA) Negative (Normal) 08/02/24 04:31 Urine Ketones Negative (Negative) 08/02/24 04:31 Urine Blood Negative (Negative) 08/02/24 04:31 Urine Nitrate Negative (Negative) 08/02/24 04:31 Urine Bilirubin Negative (Negative) 08/02/24 04:31 Urine Urobilinogen 0.2 mg/dL (Negative) 08/02/24 04:31 Ur Leukocyte Esterase Negative (Negative) 08/02/24 04:31 Amorphous Sediment Not Reportable 08/02/24 04:31 Vitals Last Vital Signs Temp 98.1 F 08/05/24 08:03 Pulse 57 L 08/05/24 08:03 Resp 18 08/05/24 08:03 BP 119/57 08/05/24 08:03 Pulse Ox 93 08/05/24 08:03 O2 Del Method Room Air 08/05/24 08:03 O2 Flow Rate 2 08/02/24 18:07 Discharge Plan Discharge Patient Disposition: Xfer SNF Condition: Stable Prescriptions: New polysaccharide iron complex [Ferrex 150] 150 mg iron Capsule 150 mg PO BIDWM Qty: 60 0RF sennosides-docusate sodium [Stool Softener-Laxative] 8.6-50 mg Tablet 2 tab PO BID PRN (Reason: Constipation) Qty: 15 0RF aspirin 325 mg Tablet,Delayed Release (Dr/Ec) 325 mg PO DAILY Qty: 30 0RF hydrocodone-acetaminophen 5-325 mg tablet 1 tab PO Q8H PRN (Reason: pain) Qty: 10 0RF Continued atorvastatin [Lipitor] 40 mg tablet 40 mg PO DAILY Qty: 90 3RF olanzapine 5 mg tablet 5 mg PO DAILY donepezil 10 mg tablet 10 mg PO DAILY quetiapine 25 mg tablet 25 mg PO QPM hydrocortisone [Procto-Med HC] 2.5 % cream with perineal applicator 1 applic topical TID Held lisinopril 40 mg tablet 40 mg PO DAILY Hold Instructions: see pcp Discontinued aspirin 81 mg Tablet,Chewable 81 mg PO DAILY ciprofloxacin HCl 500 mg tablet 500 mg PO BID Discharge Orders: Discharge Order (Routine); Ordered 08/05/24 Ordered By: Irene Thao Referrals: [facility] [Outside] Shefali Alba MD [Physician] - 08/24/24 8:45 am Dayday Chandler DO [Primary Care Provider] - 4-7 days Discharge Diet: Cardiac Discharge Activity: As per PT/OT instructions Patient Instructions: Hydrocodone/Acetaminophen (By mouth), Acute Wound Care (DC), Precautions after Total Joint Replacement Surgery (DC), Hip Fracture (ED), Joint Replacement Surgery (DC), Post Anesthesia Care Discharge Attestations Time Spent in Discharge Care*: greater than 30 min Status at Discharge: Cognitive status at discharge: mildly impaired cognition, Behavioral status at discharge: cooperative, Quality Metrics Clinical Quality Measures [ No reported AMI, CVA or VTE this stay] Coding Level of Care Code Acute Code for [facility] Diagnoses Closed subcapital fracture of left femur, initial encounter S72.012A Encounter type: initial encounter Fracture type: closed
[2024-08-05] MEDS: sennosides-docusate Tablet 2 TAB PO (09:43)
[2024-08-05] MEDS: multivitamin therapeutic Tablet 1 TAB PO (09:43)
[2024-08-05] MEDS: aspirin 325 mg EC Tablet PO (09:43)
[2024-08-05] MEDS: donepezil 5 MG Tablet 10 MG PO (09:43)
[2024-08-05] MEDS: acetaminophen 500 mg Tablet 1000 MG PO (09:44)
[2024-08-05] MEDS: cholecalciferol (vitamin D3) 1,000 unit Tablet 1000 UNIT PO (09:44)
[2024-08-05] MEDS: iron polysaccharide complex 150 mg Capsule PO (09:44)
[2024-08-05] MEDS: calcium carbonate 500 mg Chew Tablet 1000 MG PO (09:45)
[2024-08-05 09:50] VITALS: PULSE 71; RESP 18; O2SAT 92
[2024-08-05] MEDS: chlorhexidine gluconate 0.12% Btl 473 mL 30 ML MUCOUS MEM (10:03)
[2024-08-05] MEDS: mupirocin oint 22 gm 1 APPLIC NASAL (10:03)
[2024-08-05 10:23] LABS: Basophils % 0.5 %; Eosinophils # 0.3 10^3/uL (0.0-0.8); Eosinophils % 5.4 %; Hematocrit 31.3 % (36-47); Lymphocytes # 1.5 10^3/uL (0.8-4.8); Lymphocytes % 27.5 %; Mean Corpuscular Hemoglobin 29.4 pg (27-33); Mean Corpuscular Volume 97.8 fl (85-98); Mean Platelet Volume 9.6 fL (7.4-10.4); Monocytes # 0.3 10^3/uL (0.2-0.9); Monocytes % 5.2 %; Neutrophils # 3.37 10^3/uL (1.8-7.7); Nucleated Red Blood Cells % 0 %; Platelet Count 132 10^3/cmm (157-399); Red Cell Distribution Width 14.1 % (12.1-15.1); White Blood Count 5.53 10^3/uL (3.29-11.43)
[2024-08-05 10:39] LABS: Anion Gap 11.6 (5-19); Blood Urea Nitrogen 20 mg/dL (8-23); Calcium 8.1 mg/dL (8.5-10.5); Carbon Dioxide 20 mmol/L (22-29); Chloride 111 mmol/L (98-107); Creatinine Clr Calc Pharmacy 46.1799; Glucose 171 mg/dL (65-115); Osmolality Calculated 295 mOsm/kg (285-295); Potassium 3.6 mmol/L (3.5-5.1); Sodium 139 mmol/L (136-145)
[2024-08-05 11:25] LABS: SARS Covid-2 Antigen negative (Negative)
--- NOTE | 2024-08-05 12:04 | PC.SOCIAL ---
IMM Update Pg. 2 of IMM updated. Initialed, dated, and timed, copy provided at bedside.
[2024-08-05 12:11] VITALS: BP 109/57; PULSE 61; RESP 17; TEMP 36.6; O2SAT 96
== END 2024-08-05 13:05 | disposition skilled nursing facility (03) | DRG 522 ==
LOC: ER 06:01 → MEDSURG 06:32
PROVIDERS: Internal Medicine; Admitting Provider Specialist; Emergency Provider Emergency Medicine; PCP Electrodiagnostic Medicine; Visit Provider Internal Medicine
PROC: 0SRS01Z Replacement of Left Hip Joint, Femoral Surface with Metal Synthetic Substitute, Open Approach (ICD-10-PCS; CPT 27125; principal; 2024-08-02 10:30)
DX: S72.012A Unspecified intracapsular fracture of left femur, initial encounter for closed fracture (principal); W01.0XXA Fall on same level from slipping, tripping and stumbling without subsequent striking against object, initial encounter; I10 Essential (primary) hypertension; E11.42 Type 2 diabetes mellitus with diabetic polyneuropathy; F03.90 Unspecified dementia, unspecified severity, without behavioral disturbance, psychotic disturbance, mood disturbance, and anxiety; R00.1 Bradycardia, unspecified; I48.91 Unspecified atrial fibrillation; E78.5 Hyperlipidemia, unspecified; I45.10 Unspecified right bundle-branch block; Z66 Do not resuscitate; W18.30XA Fall on same level, unspecified, initial encounter; Y92.230 Patient room in hospital as the place of occurrence of the external cause; E11.51 Type 2 diabetes mellitus with diabetic peripheral angiopathy without gangrene; Z11.52 Encounter for screening for COVID-19; Z79.82 Long term (current) use of aspirin; Z79.84 Long term (current) use of oral hypoglycemic drugs; Z87.440 Personal history of urinary (tract) infections; Z82.49 Family history of ischemic heart disease and other diseases of the circulatory system; Z83.3 Family history of diabetes mellitus; Z82.0 Family history of epilepsy and other diseases of the nervous system
CPT/HCPCS: 36415; 36416; 36600; 51702; 70450; 71045; 72131; 72170; 72192; 73502; 80048; 80053; 81003; 82803; 82962; 83735; 84443; 85025; 85610; 85730; 86140; 87426; 92610; 93005; 96374; 96375; 97116; 97161; 97167; 97530; 99285; C1776; J0131; J0690; J1100; J1720; J2270; J2371; J2405; J2704; J3010; J3370; J3475; J3490; J7030; J7042

== ENCOUNTER → 2024-08-24 08:31 | Outpatient (BNVA) | payer MEDICARE, MEDICAID, SELFPAY | PROVIDERS: PCP Electrodiagnostic Medicine; Visit Provider Specialist | DX: M25.552 Pain in left hip (principal); S72.012S Unspecified intracapsular fracture of left femur, sequela; Z96.642 Presence of left artificial hip joint; X58.XXXS Exposure to other specified factors, sequela | CPT/HCPCS: 73502; 99024 ==

== ENCOUNTER 2024-09-03 20:45 | Emergency (ER) | payer MEDICARE, MEDICAID, SELFPAY ==
[2024-09-03 20:46] VITALS: BP 157/88; PULSE 86; RESP 20; TEMP 36.6; O2SAT 93; BMI 23.5
[2024-09-03 21:05] VITALS: BP 157/88; PULSE 87; RESP 20; O2SAT 94
--- NOTE | 2024-09-03 21:09 | ED_ITS ---
HPI - Nausea/Vomiting/Diarrhea 2 General: Chief complaint: Nausea/Vomiting/Diarrhea Stated complaint: N/V Time Seen by Provider: 09/03/24 20:46 History of Present Illness: 88-year-old female with a history of atr ial fibrillation, diabetes, hyperlipidemia and hypertension who presents emergency room by ambulance with nausea and vomiting. Her niece arrives in an ambulance from the same household with the same symptoms shortly after her. They both been having vomiting. No focal abdominal pain. This been going on for couple of days now. No known fevers. No altered mental status. No focal motor deficits. EMS reports she was a bit unresponsive/somnolent initially but after 100 mL of fluid she has perked up. Related Data Home Medications Medication Instructions Recorded Confirmed donepezil 10 mg tablet 10 mg PO DAILY 12/12/23 08/24/24 olanzapine 5 mg tablet 5 mg PO DAILY 12/12/23 08/24/24 hydrocortisone 2.5 % topical cream 1 applic topical TID 08/02/24 08/24/24 with perineal applicator ([facility] ) Previous Rx's Medication Instructions Recorded atorvastatin 40 mg tablet (Lipitor) 40 mg PO DAILY #90 tabs 06/29/21 aspirin 325 mg tablet,delayed 325 mg PO DAILY #30 tabs 08/05/24 release hydrocodone 5 mg-acetaminophen 325 1 tab PO Q8H PRN pain #10 tabs 08/05/24 mg tablet polysaccharide iron complex 150 mg 150 mg PO BIDWM #60 caps 08/05/24 iron capsule (Ferrex) sennosides 8.6 mg-docusate sodium 2 tab PO BID PRN Constipation #15 08/05/24 50 mg tablet (Stool tabs Softener-Laxative) ondansetron 8 mg disintegrating 8 mg PO Q6H #14 tabs 09/03/24 tablet Allergies Allergy/AdvReac Type Severity Reaction Status Date / Time No Known Allergies Allergy Verified 08/24/24 08:30 Review of Systems 2 Narrative: Constitutional symptoms: Negative except as documented in HPI. Skin symptoms: Negative except as documented in HPI. Eye symptoms: Negative except as documented in HPI. ENMT symptoms: Negative except as documented in HPI. Respiratory symptoms: Negative except as documented in HPI. Cardiovascular symptoms: Negative except as documented in HPI. Gastrointestinal symptoms: Negative except as documented in HPI. Genitourinary symptoms: Negative except as documented in HPI. Musculoskeletal symptoms: Negative except as documented in HPI. Neurologic symptoms: Negative except as documented in HPI. Psychiatric symptoms: Negative except as documented in HPI. Endocrine symptoms: Negative except as documented in HPI. PFSH ED 2 PFSH: Medical History Atrial fibrillation Acute UTI Syncope and collapse No pertinent family history Diabetes mellitus Hyperlipidemia Hypertension Surgical History No pertinent past surgical history Family History Son CAD (coronary artery disease) [place] in 30's Mother CAD (coronary artery disease) Diabetes Sister Dementia Daughter Diabetes Denies family history of Clotting disorder Chronic kidney disease (CKD) Suicide Anesthesia complication Bleeding disorder Lung disease Cancer Stroke Social History Smoking and tobacco/nicotine status: never used tobacco/nicotine Alcohol intake: never Substance/Drug Use: never Physical Exam 2 Narrative: EXAM NARRATIVE: General: Alert, no acute distress. Skin: Warm, dry. Head: Normocephalic, atraumatic. Neck: Supple, trachea midline. Eye: Extraocular movements are intact. Ears, nose, mouth and throat: Tacky oral mucosa Cardiovascular: Regular, Normal peripheral perfusion. Respiratory: Lungs are clear to auscultation, respirations are non-labored, breath sounds are equal, Symmetrical chest wall expansion. Gastrointestinal: Soft, Nontender, Non distended Musculoskeletal: Normal ROM, no deformity. Neurological: Alert and oriented, No focal neurological deficit observed. Psychiatric: Cooperative, appropriate mood & affect. Course 2 Vital Signs: Vital signs: Vital Signs Temperature 97.9 F 09/03/24 20:46 Pulse Rate 72 09/03/24 23:34 Respiratory Rate 16 09/03/24 23:34 Blood Pressure 168/88 09/03/24 23:34 Pulse Oximetry 96 09/03/24 23:34 Oxygen Delivery Me thod Room Air 09/03/24 23:34 MDM - Nausea/Vomiting/Diarrhea Medical Decision Making Medical decision making: Differential diagnosis for this patient with nausea and vomiting including but not limited to and based on the above HPI, review of systems and physical exam: Urinary tract infection. Appendicitis. Cholecystis. colitis. small bowel obstruction. crohn's flare. pancreatitis. gastritis. peptic ulcer. cyclic vomiting. Viral illness. Influenza. COVID. - Workup - labwork and imaging ordered to evaluate, rule in and rule out above pathologies. Lab Review: Laboratory results were reviewed and interpreted by myself the emergency room physician. No leukocytosis. No anemia. No renal failure. Urinalysis is negative for infection. I reviewed the patient's medical record. Reexamination: Patient is now tolerating p.o. Patient remained stable. No increased work of breathing. No altered mental status. No focal motor deficits. Her family member who got sick several hours before her tested positive for enterovirus and has exacting symptoms. Assessment and plan: Viral gastroenteritis Enterovirus Dehydration ? 2 doses of Zofran in the emergency room. - Discharged home - Discussed plan with patient. Answered any questions. - Evaluation and treatment of this problem were appropriate in the emergency setting. Lab Data 09/03/24 21:02 09/03/24 21:02 Laboratory Results WBC 6.10 10^3/uL (3.29-11.43) 09/03/24 21:02 RBC 4.31 10^6/uL (3.85-5.65) 09/03/24 21:02 Hgb 12.50 g/dL (11.27-16.99) 09/03/24 21:02 Hct 41.6 % (36-47) 09/03/24 21:02 MCV 96.5 fl (85-98) 09/03/24 21:02 MCH 29.0 pg (27-33) 09/03/24 21:02 MCHC 30.0 g/dL (30-55) 09/03/24 21:02 RDW 13.9 % (12.1-15.1) 09/03/24 21:02 Plt Count 160 10^3/cmm (157-399) 09/03/24 21:02 MPV 8.9 fL (7.4-10.4) 09/03/24 21:02 Neut % (Auto) 83.0 % 09/03/24 21:02 Lymph % (Auto) 12.5 % 09/03/24 21:02 [place] % (Auto) 3.0 % 09/03/24 21:02 Eos % (Auto) 1.0 % 09/03/24 21:02 Baso % (Auto) 0.2 % 09/03/24 21:02 Neut # (Auto) 5.07 10^3/uL (1.8-7.7) 09/03/24 21:02 Lymph # (Auto) 0.8 10^3/uL (0.8-4.8) 09/03/24 21:02 [place] # (Auto) 0.2 10^3/uL (0.2-0.9) 09/03/24 21:02 Eos # (Auto) 0.1 10^3/uL (0.0-0.8) 09/03/24 21:02 Baso # (Auto) 0.0 10^3/uL (0.0-0.1) 09/03/24 21:02 Nucleated RBC % (auto) 0 % 09/03/24 21:02 Nucleated RBCs # 0.0 /100WBC 09/03/24 21:02 Sodium 140 mmol/L (136-145) 09/03/24 21:02 Potassium 4.4 mmol/L (3.5-5.1) 09/03/24 21:02 Chloride 104 mmol/L (98-107) 09/03/24 21:02 Carbon Dioxide 23 mmol/L (22-29) 09/03/24 21:02 Anion Gap 17.4 (5-19) 09/03/24 21:02 BUN 22 mg/dL (8-23) 09/03/24 21:02 Creatinine 1.0 mg/dL (0.5-0.9) H 09/03/24 21:02 GFR Calculation Not Reportable 09/03/24 21:02 Glucose 120 mg/dL (65-115) H 09/03/24 21:02 Calculated Osmolality 295 mOsm/kg (285-295) 09/03/24 21:02 Lactic Acid 1.3 mmol/L (0.5-2.2) 09/03/24 21:02 Calcium 8.5 mg/dL (8.5-10.5) 09/03/24 21:02 Total Bilirubin 0.7 mg/dL (0.15-1.2) 09/03/24 21:02 AST 18 U/L (0-32) 09/03/24 21:02 ALT 10 U/L (0-33) 09/03/24 21:02 Alkaline Phosphatase 113 U/L (35-105) H 09/03/24 21:02 C-Reactive Protein 6.3 mg/L (0.0-4.9) H 09/03/24 21:02 Total Protein 6.4 g/dL (6.6-8.7) L 09/03/24 21:02 Albumin 3.4 g/dL (3.5-5.2) L 09/03/24 21:02 Globulin 3.0 g/dL (1.3-4.6) 09/03/24 21:02 Lipase 17 U/L (13-60) 09/03/24 21:02 Urine Color Yellow (Yellow) 09/03/24 22:45 Urine Appearance Clear (CLEAR) 09/03/24 22:45 Urine pH 5.5 (5-7) 09/03/24 22:45 Ur Specific [place] 1.025 (1.005-1.030) 09/03/24 22:45 Urine Protein Negative (Negative) 09/03/24 22:45 Urine Glucose (UA) Negative (Normal) 09/03/24 22:45 Urine Ketones 1+ (Negative) H 09/03/24 22:45 Urine Blood Negative (Negative) 09/03/24 22:45 Urine Nitrate Negative (Negative) 09/03/24 22:45 Urine Bilirubin Negative (Negative) 09/03/24 22:45 Urine Urobilinogen 1.0 mg/dL (Negative) 09/03/24 22:45 Ur Leukocyte Esterase Negative (Negative) 09/03/24 22:45 Urine RBC 21-50 /hpf (0-2) H 09/03/24 22:45 Urine WBC 0-5 /hpf (0-5) 09/03/24 22:45 Ur Squamous Epith Cells 0-5 /hpf (0-5) 09/03/24 22:45 Amorphous Sediment Not Reportable 09/03/24 22:45 Urine Bacteria None seen /hpf (NONE) 09/03/24 22:45 Hyaline Casts 3.71 /lpf 09/03/24 22:45 Urine Yeast 1+ /hpf H 09/03/24 22:45 Adenovirus (PCR) Not detected (NOT DETECT) 09/03/24 21:12 C. pneumoniae DNA (PCR) Not detected (NOT DETECT) 09/03/24 21:12 Coronavirus 229E (PCR) Not detected (NOT DETECT) 09/03/24 21:12 Human Metapneumovir PCR Not detected (NOT DETECT) 09/03/24 21:12 Influenza A (H1) PCR Not detected (NOT DETECT) 09/03/24 21:12 Influ A (H1/09) PCR Not detected (NOT DETECT) 09/03/24 21:12 Influenza A (H3) PCR Not detected (NOT DETECT) 09/03/24 21:12 Influenza Type A (PCR) Not detected (NOT DETECT) 09/03/24 21:12 Influenza Type B (PCR) Not detected (NOT DETECT) 09/03/24 21:12 M. pneumoniae (PCR) Not detected (NOT DETECT) 09/03/24 21:12 Parainfluenza 1 (PCR) Not detected (NOT DETECT) 09/03/24 21:12 Parainfluenza 2 (PCR) Not detected (NOT DETECT) 09/03/24 21:12 Parainfluenza 3 (PCR) Not detected (NOT DETECT) 09/03/24 21:12 Parainfluenza 4 (PCR) Not detected (NOT DETECT) 09/03/24 21:12 RSV Type A (PCR) Not detected (NOT DETECT) 09/03/24 21:12 RSV Type B (PCR) Not detected (NOT DETECT) 09/03/24 21:12 Entero/Rhino (PCR) Not detected (NOT DETECT) 09/03/24 21:12 SARS-CoV-2 (PCR) Not detected (NOT DETECT) 09/03/24 21:12 No radiology studies performed this visit Discharge Plan Discharge Patient Disposition: Home Clinical Impression: Gastroenteritis, Dehydration Condition: Stable Prescriptions: New ondansetron 8 mg tablet,disintegrating 8 mg PO Q6H Qty: 14 0RF Rx Instructions: Take 1/2-1 tab every 6 hours as needed for nausea and vomiting No Action atorvastatin [Lipitor] 40 mg tablet 40 mg PO DAILY Qty: 90 3RF olanzapine 5 mg tablet 5 mg PO DAILY donepezil 10 mg tablet 10 mg PO DAILY hydrocortisone [Procto-Med HC] 2.5 % cream with perineal applicator 1 applic topical TID polysaccharide iron complex [Ferrex 150] 150 mg iron Capsule 150 mg PO BIDWM Qty: 60 0RF sennosides-docusate sodium [Stool Softener-Laxative] 8.6-50 mg Tablet 2 tab PO BID PRN (Reason: Constipation) Qty: 15 0RF aspirin 325 mg Tablet,Delayed Release (Dr/Ec) 325 mg PO DAILY Qty: 30 0RF hydrocodone-acetaminophen 5-325 mg tablet 1 tab PO Q8H PRN (Reason: pain) Qty: 10 0RF Discharge Orders: Discharge ED (Routine); Ordered 09/03/24 Ordered By: Mallorie Coyle Referrals: Dayday Chandler DO [Primary Care Provider] - Discharge Diet: Advance as tolerated Discharge Activity: Increase activity as tolerated Patient Instructions: Gastroenteritis (ED), Acute Nausea and Vomiting (ED), Opioid Safety, Pain Management Activity Restrictions/Additional Instructions: Thank you for choosing [facility] for your healthcare needs today. Please realize this is an emergency room and that we are providing you with a medical screening exam and this may not be complete and all inclusive of all the testing and or work up that you may need to determine your ailment or severity of your illness. You have been screened and evaluated and felt safe for discharge. Health conditions do change or evolve sometimes and as such it is important that you follow up with your Primary Doctor to be re checked, 3-5 days is a general good time frame for follow up. You are always welcome to return to the ED for re assessment if your symptoms are worsening or you have new concerns Coding Level of Care Code ED Hr Business Partner Consultant for Sury Mccormack
[2024-09-03 21:26] LABS: Basophils % 0.2 %; Eosinophils # 0.1 10^3/uL (0.0-0.8); Hematocrit 41.6 % (36-47); Lymphocytes # 0.8 10^3/uL (0.8-4.8); Lymphocytes % 12.5 %; Mean Corpuscular Volume 96.5 fl (85-98); Mean Platelet Volume 8.9 fL (7.4-10.4); Monocytes # 0.2 10^3/uL (0.2-0.9); Neutrophils # 5.07 10^3/uL (1.8-7.7); Nucleated Red Blood Cells % 0 %; Platelet Count 160 10^3/cmm (157-399); Red Blood Count 4.31 10^6/uL (3.85-5.65); Red Cell Distribution Width 13.9 % (12.1-15.1)
[2024-09-03 21:42] LABS: Alanine Aminotransferase 10 U/L (0-33); Albumin Level 3.4 g/dL (3.5-5.2); Alkaline Phosphatase 113 U/L (35-105); Anion Gap 17.4 (5-19); Aspartate Amino Transferase 18 U/L (0-32); Blood Urea Nitrogen 22 mg/dL (8-23); C Reactive Protein 6.3 mg/L (0.0-4.9); Calcium 8.5 mg/dL (8.5-10.5); Carbon Dioxide 23 mmol/L (22-29); Chloride 104 mmol/L (98-107); Creatinine Clr Calc Pharmacy 40.1543; Glucose 120 mg/dL (65-115); Lipase 17 U/L (13-60); Osmolality Calculated 295 mOsm/kg (285-295); Potassium 4.4 mmol/L (3.5-5.1); Sodium 140 mmol/L (136-145); Total Bilirubin 0.7 mg/dL (0.15-1.2); Total Protein 6.4 g/dL (6.6-8.7)
[2024-09-03 21:43] LABS: Lactic Sepsis W/Reflex 1.3 mmol/L (0.5-2.2)
[2024-09-03 22:00] VITALS: BP 166/77; PULSE 86; RESP 16; O2SAT 100
[2024-09-03] MEDS: sodium chloride 0.9% 1,000 ML 999 ML IV (22:47)
[2024-09-03 22:51] VITALS: BP 142/82; PULSE 84; RESP 16; O2SAT 95
[2024-09-03 22:52] LABS: Bilirubin Urine Negative (Negative); Blood Urine Negative (Negative); Glucose Urine UA Negative (Normal); Ketones Urine 1+ (Negative); Leukocyte Esterase Urine Negative (Negative); Nitrate Urine Negative (Negative); Protein Urine Negative (Negative); Specific Gravity, Urine 1.025 (1.005-1.030); Urine Appearance Clear (CLEAR); Urine Color Yellow (Yellow); pH Urine 5.5 (5-7)
[2024-09-03 22:54] LABS: Bacteria Urine None Seen /hpf; Hyaline Casts Urine 3.71 /lpf; RBC Urine 21-50 /hpf (0-2); Squamous Epithelial Cell Urine 0-5 /hpf (0-5); WBC Urine 0-5 /hpf (0-5)
[2024-09-03 23:12] LABS: Adenovirus Not Detected (NOT DETECT); Chlamydia Pneumoniae Not Detected (NOT DETECT); Coronavirus 229E,HKU1,NL63,OC4 Not Detected (NOT DETECT); Human Metapneumovirus Not Detected (NOT DETECT); Human Rhinovirus/Enterovirus Not Detected (NOT DETECT); Influenza A Not Detected (NOT DETECT); Influenza A H1 Not Detected (NOT DETECT); Influenza A H1-2009 Not Detected (NOT DETECT); Influenza A H3 Not Detected (NOT DETECT); Influenza B Not Detected (NOT DETECT); Mycoplasma Pneumoniae Not Detected (NOT DETECT); Parainfluenza Virus Type 1 Not Detected (NOT DETECT); Parainfluenza Virus Type 2 Not Detected (NOT DETECT); Parainfluenza Virus Type 3 Not Detected (NOT DETECT); Parainfluenza Virus Type 4 Not Detected (NOT DETECT); Respiratory Syncytial Virus A Not Detected (NOT DETECT); Respiratory Syncytial Virus B Not Detected (NOT DETECT); SARS-COV-2 Not Detected (NOT DETECT)
--- NOTE | 2024-09-03 23:17 | PC.NURSE ---
PT MEDICATION WAS PULLED OUT OF MACHINE BY ANOTHER NURSE, BUT PER OTHER NURSE, MED WAS NEVER GIVEN. PTS NURSE NEVER ADMINISTERED ZOFRAN AND MARKED MEDICATION NOT GIVEN.
[2024-09-03 23:19] VITALS: BP 159/73; PULSE 68; RESP 16; O2SAT 99
[2024-09-03] MEDS: ondansetron 2 mg/ML SDV 2 mL 8 MG IVP (23:32)
[2024-09-03 23:34] VITALS: BP 168/88; PULSE 72; RESP 16; O2SAT 96
[2024-09-03 23:35] LABS: Add Urine Culture? Yes; UA Slide Review UA Slide Review Perf
[2024-09-04 00:19] VITALS: BP 178/79; PULSE 81; RESP 18; O2SAT 96
== END 2024-09-04 00:20 | disposition home or self-care (01) ==
PROVIDERS: Emergency Provider Emergency Medicine; PCP Electrodiagnostic Medicine
DX: K52.9 Noninfective gastroenteritis and colitis, unspecified (principal); E86.0 Dehydration; Z11.52 Encounter for screening for COVID-19; Z79.82 Long term (current) use of aspirin; E11.9 Type 2 diabetes mellitus without complications; E78.5 Hyperlipidemia, unspecified; I10 Essential (primary) hypertension
CPT/HCPCS: 36415; 80053; 81001; 83605; 83690; 85025; 86140; 87040; 87086; 87106; 87486; 87581; 87633; 96374; 99284; J2405; J7030

== ENCOUNTER → 2024-09-08 15:13 | Outpatient (BNVA) | payer MEDICARE, MEDICAID, SELFPAY | PROVIDERS: PCP Electrodiagnostic Medicine; Visit Provider Podiatrist Foot & Ankle Surgery | DX: L60.3 Nail dystrophy (principal); G62.9 Polyneuropathy, unspecified; I73.9 Peripheral vascular disease, unspecified; E11.42 Type 2 diabetes mellitus with diabetic polyneuropathy | CPT/HCPCS: 11721 ==

== ENCOUNTER → 2024-11-10 15:13 | Outpatient (BNVA) | payer MEDICARE, MEDICAID, SELFPAY | PROVIDERS: PCP Electrodiagnostic Medicine; Visit Provider Podiatrist Foot & Ankle Surgery | DX: E11.42 Type 2 diabetes mellitus with diabetic polyneuropathy (principal); L60.3 Nail dystrophy; G62.9 Polyneuropathy, unspecified; I73.9 Peripheral vascular disease, unspecified | CPT/HCPCS: 11721 ==

== ENCOUNTER → 2024-11-16 09:26 | Outpatient (BNVA) | payer MEDICARE, MEDICAID, SELFPAY | PROVIDERS: PCP Electrodiagnostic Medicine; Visit Provider Specialist | DX: Z96.642 Presence of left artificial hip joint (principal) | CPT/HCPCS: 73502; 99213 ==

== ENCOUNTER 2024-12-26 14:37 | Emergency (ER) | payer MEDICARE, MEDICAID, SELFPAY ==
[2024-12-26 14:42] VITALS: BP 150/81; PULSE 55; RESP 18; TEMP 36.8; O2SAT 99
--- NOTE | 2024-12-26 14:50 | XRR_ITS ---
PROCEDURE INFORMATION: Exam: XR Chest Exam date and time: 12/26/2024 3:12 PM Age: 89 years old Clinical indication: Injury or trauma; Fall; Blunt trauma (contusions or hematomas) TECHNIQUE: Imaging protocol: Radiologic exam of the chest. Views: 1 view. COMPARISON: CR XR chest 1V portable [id number] 04/06/2024 03:55 FINDINGS: Lungs: Lungs are relatively clear without distinct infiltrates. Punctate granulomatous calcifications are noted in the left hilar region and also at the left costophrenic angle and appear unchanged. Mild elevation of the left diaphragm is again seen and similar to prior study. No consolidation. Pleural spaces: Unremarkable. No pleural effusion. No pneumothorax. Heart/Mediastinum: Unremarkable. No cardiomegaly. Bones/joints: Unremarkable. Other findings: Calcifications are seen involving the splenic artery are prominent. A rounded 1.5 cm calcification is seen consistent with a remote calcified splenic artery aneurysm appears unchanged in comparison to the CT of the lumbar spine 08/02/2024. XR/XR chest 1V portable [id number] IMPRESSION: 1. No acute portable plain film findings. 2. Mild elevation of the left diaphragm again seen and unchanged.
--- NOTE | 2024-12-26 14:50 | CTR_ITS ---
PROCEDURE INFORMATION: Exam: CT Thoracic Spine Without Contrast Exam date and time: 12/26/2024 3:23 PM Age: 89 years old Clinical indication: Injury or trauma; Fall; Blunt trauma (contusions or hematomas) TECHNIQUE: Imaging protocol: Computed tomography of the thoracic spine without contrast. Radiation optimization: All CT scans at this facility use at least one of these dose optimization techniques: automated exposure control; mA and/or kV adjustment per patient size (includes targeted exams where dose is matched to clinical indication); or iterative reconstruction. COMPARISON: CT cervical spin wo con* [id number] 10/28/2024 15:17 RADIATION DOSE METRICS: Total DLP (mGy-cm): 689.5 FINDINGS: Bones/joints: There are no discrete linear areas of decreased density are compressive changes observed as to indicate an acute fracture. The frontal CT scanogram view demonstrates moderate convexity of the thoracolumbar spine being directed to the right and centered in the upper lumbar region. Mild generalized kyphosis of the thoracic spine is noted. Mild generalized decreased bone density is seen throughout consistent with osteopenia. Osteoarthritic changes are seen at the C5-C6 and C6-C7 disc levels. Prominent exuberant osteophytes are noted anterolaterally on the right at T11-12 and T12-L1. A bone island is seen at the T4 level and in the range of normal. T1-T2: No significant disc bulge or herniation. No severe spinal canal stenosis. No significant neural foraminal narrowing. T2-T3: No significant disc bulge or herniation. No severe spinal canal stenosis. No significant neural foraminal narrowing. T3-T4: Trace punctate spur seen just to the right of midline which does not appear to significantly involve the canal. Foramina are intact. T4-T5: No significant disc bulge or herniation. No severe spinal canal stenosis. No significant neural foraminal narrowing. T5-T6: No significant disc bulge or herniation. No severe spinal canal stenosis. No significant neural foraminal narrowing. T6-T7: No significant disc bulge or herniation. No severe spinal canal stenosis. No significant neural foraminal narrowing. T7-T8: Mild central posterior spurring is noted minimally narrowing the canal but not to any significant degree. Foramina are intact/patent. T8-T9: No significant disc bulge or herniation. No severe spinal canal stenosis. No significant neural foraminal narrowing. T9-T10: No significant disc bulge or herniation. No severe spinal canal stenosis. No significant neural foraminal narrowing. T10-T11: Mild broad-based posterior spurring is seen mildly effacing the thecal sac and narrowing canal in conjunction with the [id number]-ap-hlgnpysb degenerative facet/ligamentous changes at this level. T11-T12: No significant disc bulge or herniation. No severe spinal canal stenosis. No significant neural foraminal narrowing. T12-L1: No significant disc bulge or herniation. No severe spinal canal stenosis. No significant neural foraminal narrowing. Soft tissues: Trace posterior basilar atelectasis is suspected on the left at the costophrenic angle. Multiple gallstones are seen in the dependent portion of the gallbladder lumen. CT/CT thoracic spin wo con* [id number] IMPRESSION: 1. No acute osseous thoracic spine CT findings identified. 2. Minimal to mild osteoarthritic/degenerative changes, as described. 3. Osteopenia. 4. If difficulties persist MRI is suggested for your consideration. 5. Cholelithiasis incidentally noted.
--- NOTE | 2024-12-26 14:50 | CTR_ITS ---
PROCEDURE INFORMATION: Exam: CT Cervical Spine Without Contrast Exam date and time: 12/26/2024 3:17 PM Age: 89 years old Clinical indication: Injury or trauma; Fall; Blunt trauma TECHNIQUE: Imaging protocol: Computed tomography of the cervical spine without contrast. Radiation optimization: All CT scans at this facility use at least one of these dose optimization techniques: automated exposure control; mA and/or kV adjustment per patient size (includes targeted exams where dose is matched to clinical indication); or iterative reconstruction. COMPARISON: CR XR cervical spine 3V* [id number] 04/28/2019 18:02 RADIATION DOSE METRICS: Total DLP (mGy-cm): 169.7 FINDINGS: Bones/joints: Axial detailed source and reconstructed images demonstrate no distinct linear areas of decreased density as might indicate the presence of the fracture. Moderately prominent osteoarthritic/degenerative changes are seen as evidenced by disc space loss with contiguous endplate sclerosis and circumferential spurring. Additionally seen are some subcortical degenerative cyst-like changes observed particularly at C4-C5 and C5-C6. The sagittal images demonstrate trace anterolisthesis/degenerative ligamentous laxity of C3/C4 which is consistent with degenerative changes seen below this level. This appears unchanged in comparison to an earlier set of plain films from 11/01/2018. Generalized decreased bone density is seen consistent with osteopenia. C2-C3: Mild central posterior disc bulging is seen without significant effacement. Foramina are relatively intact. C3-C4: Nmjr-fi-llayvroa broad-based posterior spurring is seen slightly eccentric to the right with mild bilateral canal and foraminal narrowing. C4-C5: Moderate broad-based posterior spurring is seen mildly narrowing the canal and moderately narrowing both neural foramina. C5-C6: Moderate broad-based posterior spurring is seen mildly narrowing the canal and both neural foramina. C6-C7: Moderate broad-based posterior spurring is seen mildly narrowing the canal and mildly narrowing both neural foramina. C7-T1: No significant disc bulge or herniation. No severe spinal canal stenosis. No significant neural foraminal narrowing. Lungs: Lung apices are normal. Soft tissues: Minimal atherosclerotic calcifications are seen at the right carotid bifurcation. CT/CT cervical spin wo con* [id number] IMPRESSION: 1. No acute osseous cervical spine CT findings. 2. Multilevel osteoarthritic/degenerative changes and if difficulties persist an MRI is suggested for your consideration.
--- NOTE | 2024-12-26 14:50 | CTR_ITS ---
PROCEDURE INFORMATION: Exam: CT Head Without Contrast Exam date and time: 12/26/2024 3:17 PM Age: 89 years old Clinical indication: Injury or trauma; Fall; Blunt trauma (contusions or hematomas) TECHNIQUE: Imaging protocol: Computed tomography of the head without contrast. Radiation optimization: All CT scans at this facility use at least one of these dose optimization techniques: automated exposure control; mA and/or kV adjustment per patient size (includes targeted exams where dose is matched to clinical indication); or iterative reconstruction. COMPARISON: CT head wo con* [id number] 05/07/2024 17:36 RADIATION DOSE METRICS: Total DLP (mGy-cm): 1113.1 FINDINGS: Brain: The patient is asymmetrically positioned within the gantry slightly challenging to resolution. Jukecvch-hl-mjrfjk patchy periventricular deep white matter decreased density seen in both cerebral hemispheres. Trace linear increased density seen along the left frontal cortex on images 29 and 30 and is felt to be artifactual as it extends past anatomic boundaries. The midline is intact. Beam hardening artifact obscures resolution through the posterior fossa structures. No hemorrhage. No mass effect. Minimal atherosclerotic calcifications are seen in the vertebrobasilar system and mild atherosclerotic calcification is noted in the left supraclinoid ICA. Cerebral ventricles: Ventricles demonstrate normal size shape and configuration and are felt to be in proportion to the degree of widening of the sulci, sylvian fissures and basilar cisterns. Paranasal sinuses: Visualized sinuses are unremarkable. No fluid levels. Mastoid air cells: Visualized mastoid air cells are well aerated. Orbital cavities: Bilateral cataract surgery. Bones: Unremarkable. No acute fracture. Soft tissues: Mild ceruminous impaction of the right external auditory canal is noted. Also observed are chronic atherosclerotic calcifications of the bilateral temporal arteries. CT/CT head wo con* [id number] IMPRESSION: 1. No acute intracranial head CT findings identified. 2. Atrophy/involutional changes of aging with chronic small-vessel disease. 3. Right EAC cerumen collection
--- NOTE | 2024-12-26 14:50 | ECG_ITS ---
[facility] Date: 2024[facility]12[facility]26 Pat Name: Sara Santoyo Department: Room: Gender: Female [employer]: : 1935 Requested By: Nawaf Man Order Number: [id number] Alfredo MD: Randal Ames M.D. Measurements Intervals [place] Rate: 53 P: 265 IL: 366 QRS: -65 QRSD: 142 T: 54 QT: 492 QTc: 464 Interpretive Statements SINUS BRADYCARDIA RIGHT BUNDLE BRANCH BLOCK [120+ ms QRS DURATION, UPRIGHT V1, 40+ ms S IN I/aVL/V4/V5/V6] LEFT ANTERIOR FASCICULAR BLOCK [QRS AXIS <= -45, QR IN I, RS IN II] PROBABLE SEPTAL MYOCARDIAL INFARCTION , OF INDETERMINATE AGE [35 ms Q WAVE IN V1/V2] Compared to ECG 08/02/2024 04:06:57 Right bundle-branch block now present Left anterior fascicular block now present Myocardial infarct finding now present Left-axis deviation no longer present Intraventricular conduction delay no longer present Electronically Signed On 12-28-2024 09:18:47 CDT by Randal Ames M.D. [email or web address]
--- NOTE | 2024-12-26 14:50 | CTR_ITS ---
PROCEDURE INFORMATION: Exam: CT Lumbar Spine Without Contrast Exam date and time: 12/26/2024 3:23 PM Age: 89 years old Clinical indication: Injury or trauma; Fall; Blunt trauma (contusions or hematomas) TECHNIQUE: Imaging protocol: Computed tomography of the lumbar spine without contrast. Radiation optimization: All CT scans at this facility use at least one of these dose optimization techniques: automated exposure control; mA and/or kV adjustment per patient size (includes targeted exams where dose is matched to clinical indication); or iterative reconstruction. COMPARISON: CT lumbar spine wo con* [id number] 04/06/2024 03:26 RADIATION DOSE METRICS: Total DLP (mGy-cm): 542.3 FINDINGS: Bones/joints: No acute fracture. Moderately prominent convexity of the lumbar spine is seen centered in the upper to mid region. This is best appreciated on the frontal CT scanogram image and coronal reconstructions. Sagittal images demonstrate relative alignment to be present except for trace degenerative retrolisthesis of L3/L4. This is unchanged. Disc space loss with contiguous endplate irregularity and circumferential spurring as well as vacuum phenomena are seen at L2-L3 and L3-L4 as well as the L5-S1 levels. Generalized decreased bone density/osteopenia. L1-L2: Preservation of posterior disc concavity seen with mild left lateral disc/spur changes. These do not appear significantly involve the neural foramina when allowing for the scoliosis. L2-L3: Mild canal narrowing is seen at this level and is greater on the left than the right. This appears to be due to left posterolateral broad-based spur/disc coupled with degenerative facet and ligamentous changes. Mild left degenerative foraminal narrowing is present. L3-L4: Moderate narrowing of the canal is seen at this level particularly on the right and is due to broad-based posterior spurring with psjkr-auglziw-pibw-left degenerative facet/ligamentous changes. This is best appreciated on image 64 of series 5. Degenerative facet/ligamentous changes contributes to moderate to marked right foraminal narrowing which would involve the right L3 root. Far left disc bulge/protrusion is observed abutting and slightly effacing the left L3 root at the extraforaminal level (image 59 of series 5). L4-L5: Broad-based posterior disc bulging is seen eccentric to the right and when coupled with qajux-bjfzdki-qxfp-left degenerative facet/ligamentous changes results in mild right lateral canal narrowing. Moderate right degenerative foraminal narrowing is present. L5-S1: Vacuum phenomena is present here extending into the canal area to the left of midline. Mild convexity of the disc margin is noted. Trace punctate calcification is seen as well. This does not appear to significantly involve the left S1 root when reviewing axial and sagittal images. Disc and facet changes result in moderate bilateral foraminal narrowing at this level. Soft tissues: Avud-ew-fwliagcl atherosclerotic calcifications of the great vessels are noted. CT/CT lumbar spine wo con* [id number] IMPRESSION: 1. No acute osseous LS spine CT findings identified. 2. 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 3. 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 4. Osteopenia. 5. If difficulties persist an MRI is suggested for your consideration.
--- NOTE | 2024-12-26 14:55 | W.ED.SYNCOPE ---
HPI - Syncope General: Chief Complaint: Syncope Stated Complaint: syncope Time Seen by Provider: 12/26/24 14:49 Source: patient Mode of arrival: ambulatory Limitations: no limitations History of Present Illness: 89-year-old female who states that she had a large bowel movement and had a syncopal event during the bowel movement. States she had fell in the bathroom floor she did hit her head she denies headache but does complain of some back pain. She is awake alert with normal vitals currently she denies any hip pain or any other injuries Associated symptoms: Deny abdominal pain, chest pain, fever(s), headache(s) or nausea Related Data Home Medications ?Medication ?Instructions ?Recorded ?Confirmed donepezil 10 mg tablet 10 mg PO DAILY 12/12/23 12/26/24 olanzapine 5 mg tablet 5 mg PO DAILY 12/12/23 12/26/24 methenamine hippurate 1 gram tablet 1 g PO BID 12/26/24 12/26/24 Previous Rx's ?Medication ?Instructions ?Recorded atorvastatin 40 mg tablet (Lipitor) 40 mg PO DAILY #90 tabs 06/29/21 aspirin 325 mg tablet,delayed 325 mg PO DAILY #30 tabs 08/05/24 release Allergies Allergy/AdvReac Type Severity Reaction Status Date / Time No Known Allergies Allergy Verified 11/16/24 09:33 Review of Systems Const: Denies: fever(s), chills, body aches or change in appetite ENMT: Denies: throat pain or dental pain Card: Reports: syncope; Denies: chest pain Resp: Denies: dyspnea GI: Denies: abdominal pain, nausea, vomiting or diarrhea Musc: Reports: back pain; Denies: neck pain or extremity pain Skin/Breast: Denies: rash Neuro: Denies: headache(s) PFS ED PFSH: Medical History Atrial fibrillation Acute UTI Syncope and collapse No pertinent family history Diabetes mellitus Hyperlipidemia Hypertension Surgical History No pertinent past surgical history Family History Son CAD (coronary artery disease) [place] in 30's Mother CAD (coronary artery disease) Diabetes Sister Dementia Daughter Diabetes Denies family history of Clotting disorder Chronic kidney disease (CKD) Suicide Anesthesia complication Bleeding disorder Lung disease Cancer Stroke Social History Smoking and tobacco/nicotine status: never used tobacco/nicotine Alcohol intake: never Substance/Drug Use: never Physical Exam Const: COMMON NORMALS: no acute distress, patient oriented x3 and healthy appearing HENMT: COMMON NORMALS: normocephalic and atraumatic HEAD & SCALP: normocephalic and atraumatic Eye: COMMON NORMALS: conjunctivae normal CONJUNCTIVA: Yes conjunctivae normal Neck/C-Spine: COMMON NORMALS: full ROM and supple Chest: COMMONS NORMALS: normal inspection of the chest Resp: COMMON NORMALS: normal respiratory effort, No retractions, No use of accessory muscles and clear to auscultation bilaterally AUSCULTATION: clear to auscultation bilaterally Cardio: COMMON NORMALS: regular rate, regular rhythm and No murmurs present (Cardio) RATE: regular rate RHYTHM: regular rhythm GI: COMMON NORMALS: Normal to inspection, nondistended, normoactive bowel sounds present, Soft to palpation, non-tender and no masses PALPATION: Yes Soft to palpation Back/Pelvis: OTHER: Tenderness along thoracic and lumbar spine no step-off deformity Extremity: COMMON NORMALS: normal to inspection and full ROM Neuro: COMMON NORMALS: patient oriented x3, moves all extremities and no focal motor deficits Psych: COMMON NORMALS: mental status grossly normal, Normal thought process present and cooperative THOUGHT PROCESS: Normal thought process present Skin: COMMON NORMALS: no rashes or lesions noted and no wounds GENERAL SKIN EXAM: no rashes or lesions noted Course Vital Signs: Vital signs: Vital Signs Temperature 98.2 F 12/26/24 14:42 Pulse Rate 46 L 12/26/24 16:35 Respiratory Rate 16 12/26/24 16:00 Blood Pressure 180/69 12/26/24 16:35 Pulse Oximetry 98 12/26/24 16:00 Oxygen Delivery Me thod Room Air 12/26/24 16:00 MDM - Syncope Medical Decision Making Patient presents here with syncopal event she has been well-appearing here orthostatics are normal likely vagal episode while going to the bathroom imaging of her head neck and spine are normal as well she stable for discharge follow-up with PCP return if worsening. Medical Records I reviewed the patient's medical records. Lab Data I reviewed the patient's lab results. 12/26/24 14:59 12/26/24 14:59 Radiology Impressions Cervical Spine CT 12/26/24 14:50 IMPRESSION: 1. No acute osseous cervical spine CT findings. 2. Multilevel osteoarthritic/degenerative changes and if difficulties persist an MRI is suggested for your consideration. Chest X-Ray 12/26/24 14:50 IMPRESSION: 1. No acute portable plain film findings. 2. Mild elevation of the left diaphragm again seen and unchanged. Head CT 12/26/24 14:50 IMPRESSION: 1. No acute intracranial head CT findings identified. 2. Atrophy/involutional changes of aging with chronic small-vessel disease. 3. Right EAC cerumen collection Lumbar Spine CT 12/26/24 14:50 IMPRESSION: 1. No acute osseous LS spine CT findings identified. 2. 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 3. 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 4. Osteopenia. 5. If difficulties persist an MRI is suggested for your consideration. Thoracic Spine CT 12/26/24 14:50 IMPRESSION: 1. No acute osseous thoracic spine CT findings identified. 2. Minimal to mild osteoarthritic/degenerative changes, as described. 3. Osteopenia. 4. If difficulties persist MRI is suggested for your consideration. 5. Cholelithiasis incidentally noted. Pelvis X-Ray 12/26/24 14:57 IMPRESSION: 1. Single view of the pelvis demonstrating no acute plain film identifiable findings. 2. Left hip prosthesis appearing unchanged in comparison to earlier study from 11/16/2024. 3. Osteopenia. 4. Atherosclerotic calcifications of the femoral arteries. Laboratory Results WBC 5.93 10^3/uL (3.29-11.43) 12/26/24 14:59 RBC 4.29 10^6/uL (3.85-5.65) 12/26/24 14:59 Hgb 12.30 g/dL (11.27-16.99) 12/26/24 14:59 Hct 40.7 % (36-47) 12/26/24 14:59 MCV 94.9 fl (85-98) 12/26/24 14:59 MCH 28.7 pg (27-33) 12/26/24 14:59 MCHC 30.2 g/dL (30-55) 12/26/24 14:59 RDW 13.6 % (12.1-15.1) 12/26/24 14:59 Plt Count 142 10^3/cmm (157-399) L 12/26/24 14:59 MPV 9.3 fL (7.4-10.4) 12/26/24 14:59 Neut % (Auto) 65.7 % 12/26/24 14:59 Lymph % (Auto) 27.2 % 12/26/24 14:59 [place] % (Auto) 4.4 % 12/26/24 14:59 Eos % (Auto) 1.7 % 12/26/24 14:59 Baso % (Auto) 0.8 % 12/26/24 14:59 Neut # (Auto) 3.90 10^3/uL (1.8-7.7) 12/26/24 14:59 Lymph # (Auto) 1.6 10^3/uL (0.8-4.8) 12/26/24 14:59 [place] # (Auto) 0.3 10^3/uL (0.2-0.9) 12/26/24 14:59 Eos # (Auto) 0.1 10^3/uL (0.0-0.8) 12/26/24 14:59 Baso # (Auto) 0.1 10^3/uL (0.0-0.1) 12/26/24 14:59 Nucleated RBC % (auto) 0 % 12/26/24 14:59 Nucleated RBCs # 0.0 /100WBC 12/26/24 14:59 Sodium 138 mmol/L (136-145) 12/26/24 14:59 Potassium 3.6 mmol/L (3.5-5.1) 12/26/24 14:59 Chloride 105 mmol/L (98-107) 12/26/24 14:59 Carbon Dioxide 22 mmol/L (22-29) 12/26/24 14:59 Anion Gap 14.6 (5-19) 12/26/24 14:59 BUN 12 mg/dL (8-23) 12/26/24 14:59 Creatinine 0.9 mg/dL (0.5-0.9) 12/26/24 14:59 GFR Calculation Not Reportable 12/26/24 14:59 Glucose 126 mg/dL (65-115) H 12/26/24 14:59 Calculated Osmolality 287 mOsm/kg (285-295) 12/26/24 14:59 Calcium 8.8 mg/dL (8.5-10.5) 12/26/24 14:59 Total Bilirubin 0.8 mg/dL (0.15-1.2) 12/26/24 14:59 AST 19 U/L (0-32) 12/26/24 14:59 ALT 10 U/L (0-33) 12/26/24 14:59 Alkaline Phosphatase 75 U/L (35-105) 12/26/24 14:59 Total Protein 5.9 g/dL (6.6-8.7) L 12/26/24 14:59 Albumin 3.1 g/dL (3.5-5.2) L 12/26/24 14:59 Globulin 2.8 g/dL (1.3-4.6) 12/26/24 14:59 All radiology interpretation(s) finalized by discharge Discharge Plan Discharge Patient Disposition: Home Clinical Impression: Syncope Condition: Stable Prescriptions: No Action atorvastatin [Lipitor] 40 mg tablet 40 mg PO DAILY Qty: 90 3RF olanzapine 5 mg tablet 5 mg PO DAILY donepezil 10 mg tablet 10 mg PO DAILY methenamine hippurate 1 gram tablet 1 g PO BID aspirin 325 mg Tablet,Delayed Release (Dr/Ec) 325 mg PO DAILY Qty: 30 0RF Discharge Orders: Discharge ED (Routine); Ordered 12/26/24 Ordered By: Nawaf Man Referrals: Dayday Chandler DO [Primary Care Provider, Family Practice] - 4-7 days Discharge Diet: Advance as tolerated Discharge Activity: Resume usual activity Patient Instructions: Syncope (ED) Print Language: Burkinan Coding Level of Care Code ED Wood Turning Lathe Operator for Sury Mccormack
--- NOTE | 2024-12-26 14:57 | XRR_ITS ---
PROCEDURE INFORMATION: Exam: XR Pelvis Exam date and time: 12/26/2024 3:12 PM Age: 89 years old Clinical indication: Injury or trauma; Fall; Blunt trauma (contusions or hematomas); Bilateral; Pelvic region; Prior surgery; Surgery date: 6+ months; Surgery type: Left hip TECHNIQUE: Imaging protocol: Radiologic exam of the pelvis. Views: 1 or 2 view. COMPARISON: CR XR hip LT 2-3V wo/w pel* [id number] 16/11/2024 09:30 FINDINGS: Bones/joints: A left hip prosthesis is present and appears to be appropriately articulated. Its configuration is similar to the prior study. No acute fracture. Osteoarthritic/degenerative changes are noted in the partially visualized lower lumbosacral region. Soft tissues: Moderate atherosclerotic calcifications are seen in the bilateral femoral arteries. XR/XR pelvis 1-2V* [id number] IMPRESSION: 1. Single view of the pelvis demonstrating no acute plain film identifiable findings. 2. Left hip prosthesis appearing unchanged in comparison to earlier study from 11/16/2024. 3. Osteopenia. 4. Atherosclerotic calcifications of the femoral arteries.
[2024-12-26 15:04] LABS: Basophils # 0.1 10^3/uL (0.0-0.1); Basophils % 0.8 %; Eosinophils # 0.1 10^3/uL (0.0-0.8); Eosinophils % 1.7 %; Hematocrit 40.7 % (36-47); Lymphocytes # 1.6 10^3/uL (0.8-4.8); Lymphocytes % 27.2 %; Mean Corpuscular HGB Conc 30.2 g/dL (30-55); Mean Corpuscular Hemoglobin 28.7 pg (27-33); Mean Corpuscular Volume 94.9 fl (85-98); Mean Platelet Volume 9.3 fL (7.4-10.4); Monocytes # 0.3 10^3/uL (0.2-0.9); Monocytes % 4.4 %; Neutrophils % 65.7 %; Nucleated Red Blood Cells % 0 %; Platelet Count 142 10^3/cmm (157-399); Red Blood Count 4.29 10^6/uL (3.85-5.65); Red Cell Distribution Width 13.6 % (12.1-15.1); White Blood Count 5.93 10^3/uL (3.29-11.43)
[2024-12-26 15:20] LABS: Alanine Aminotransferase 10 U/L (0-33); Albumin Level 3.1 g/dL (3.5-5.2); Alkaline Phosphatase 75 U/L (35-105); Anion Gap 14.6 (5-19); Aspartate Amino Transferase 19 U/L (0-32); Blood Urea Nitrogen 12 mg/dL (8-23); Calcium 8.8 mg/dL (8.5-10.5); Carbon Dioxide 22 mmol/L (22-29); Chloride 105 mmol/L (98-107); Globulin 2.8 g/dL (1.3-4.6); Glucose 126 mg/dL (65-115); Osmolality Calculated 287 mOsm/kg (285-295); Potassium 3.6 mmol/L (3.5-5.1); Sodium 138 mmol/L (136-145); Total Bilirubin 0.8 mg/dL (0.15-1.2); Total Protein 5.9 g/dL (6.6-8.7)
[2024-12-26 16:00] VITALS: BP 119/57; PULSE 47; RESP 16; O2SAT 98
[2024-12-26 16:35] VITALS: BP 154/94; BP 158/95; BP 180/69; PULSE 46; PULSE 53; PULSE 59
[2024-12-26 17:01] VITALS: BP 152/93; PULSE 59; RESP 14; O2SAT 95
== END 2024-12-26 16:59 | disposition home or self-care (01) ==
PROVIDERS: Emergency Provider Emergency Medicine; PCP Electrodiagnostic Medicine
DX: R55 Syncope and collapse (principal); Z79.82 Long term (current) use of aspirin; E78.5 Hyperlipidemia, unspecified; I10 Essential (primary) hypertension; E11.9 Type 2 diabetes mellitus without complications
CPT/HCPCS: 70450; 71045; 72125; 72128; 72131; 72170; 80053; 85025; 93005; 99285

== ENCOUNTER → 2025-01-12 15:19 | Outpatient (BNVA) | payer MEDICARE, MEDICAID, SELFPAY | PROVIDERS: PCP Electrodiagnostic Medicine; Visit Provider Podiatrist Foot & Ankle Surgery | DX: E11.42 Type 2 diabetes mellitus with diabetic polyneuropathy (principal); L60.3 Nail dystrophy; G62.9 Polyneuropathy, unspecified; I73.9 Peripheral vascular disease, unspecified | CPT/HCPCS: 11721; 99213 ==

== ENCOUNTER 2025-01-14 17:44 | Emergency (ER) | payer MEDICARE, MEDICAID, SELFPAY ==
[2025-01-14 17:46] VITALS: BP 153/59; PULSE 53; RESP 16; TEMP 36.8; O2SAT 98; BMI 27.3
--- NOTE | 2025-01-14 17:50 | ECG_ITS ---
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 Measurements Intervals [place] Rate: 53 P: 40 WI: 195 QRS: -67 QRSD: 138 T: 29 QT: 500 QTc: 472 Interpretive Statements SINUS BRADYCARDIA RIGHT BUNDLE BRANCH BLOCK [120+ ms QRS DURATION, UPRIGHT V1, 40+ ms S IN I/aVL/V4/V5/V6] Non diagnostic T wave changes LEFT ANTERIOR FASCICULAR BLOCK [QRS AXIS <= -45, QR IN I, RS IN II] SEPTAL MYOCARDIAL INFARCTION , PROBABLY OLD [40+ ms Q WAVE IN V1/V2] Compared to ECG 12/26/2024 14:53:13 No significant changes Electronically Signed On 01-14-2025 18:27:31 CDT by Humberto Parra M.D. [email or web address]
--- NOTE | 2025-01-14 17:56 | W.ED.SYNCOPE ---
HPI - Syncope General: Chief Complaint: Syncope Stated Complaint: Syncopal episode Time Seen by Provider: 01/14/25 17:48 History of Present Illness: 89-year-old female with history of atrial fibrillation, diabetes, hypertension, dementia and hyperlipidemia who presents emergency room for having a syncopal episode. Family says she became unresponsive for about 10 minutes. Patient says she felt fine before and she feels fine now. She did not hit her head. Currently no altered mental status no focal motor deficits. Blood pressure is normal and her heart rate is a little slow. She is always bradycardic in the past. No chest pain. No fevers. No cough. No focal motor deficits. Related Data Home Medications ?Medication ?Instructions ?Recorded ?Confirmed donepezil 10 mg tablet 10 mg PO DAILY 12/12/23 01/12/25 olanzapine 5 mg tablet 5 mg PO DAILY 12/12/23 01/12/25 methenamine hippurate 1 gram tablet 1 g PO BID 12/26/24 01/12/25 Previous Rx's ?Medication ?Instructions ?Recorded atorvastatin 40 mg tablet (Lipitor) 40 mg PO DAILY #90 tabs 06/29/21 aspirin 325 mg tablet,delayed 325 mg PO DAILY #30 tabs 08/05/24 release Diabetic Shoes 3 x insoles #1 ea 01/12/25 cephalexin 500 mg tablet 500 mg PO TID 5 days #15 tabs 01/14/25 Allergies Allergy/AdvReac Type Severity Reaction Status Date / Time No Known Allergies Allergy Verified 01/12/25 15:33 Review of Systems Narrative: Constitutional symptoms: Negative except as documented in HPI. Skin symptoms: Negative except as documented in HPI. Eye symptoms: Negative except as documented in HPI. ENMT symptoms: Negative except as documented in HPI. Respiratory symptoms: Negative except as documented in HPI. Cardiovascular symptoms: Negative except as documented in HPI. Gastrointestinal symptoms: Negative except as documented in HPI. Genitourinary symptoms: Negative except as documented in HPI. Musculoskeletal symptoms: Negative except as documented in HPI. Neurologic symptoms: Negative except as documented in HPI. Psychiatric symptoms: Negative except as documented in HPI. Endocrine symptoms: Negative except as documented in HPI. PFS ED PFSH: Medical History Atrial fibrillation Acute UTI Syncope and collapse No pertinent family history Diabetes mellitus Hyperlipidemia Hypertension Surgical History No pertinent past surgical history Family History Son CAD (coronary artery disease) [place] in 30's Mother CAD (coronary artery disease) Diabetes Sister Dementia Daughter Diabetes Denies family history of Clotting disorder Chronic kidney disease (CKD) Suicide Anesthesia complication Bleeding disorder Lung disease Cancer Stroke Social History Smoking and tobacco/nicotine status: never used tobacco/nicotine Alcohol intake: never Substance/Drug Use: never Physical Exam Narrative: EXAM NARRATIVE: General: Alert, no acute distress. Skin: Warm, dry. Head: Normocephalic, atraumatic. Neck: Supple, trachea midline. Eye: Extraocular movements are intact. Ears, nose, mouth and throat: mucosa moist. Cardiovascular: Regular, bradycardic, normal peripheral perfusion. Respiratory: Lungs are clear to auscultation, respirations are non-labored, breath sounds are equal, Symmetrical chest wall expansion. Gastrointestinal: Soft, Nontender, Non distended Musculoskeletal: Normal ROM, no deformity. Neurological: Alert and oriented, No focal neurological deficit observed. Psychiatric: Cooperative, appropriate mood & affect. Course Vital Signs: Vital signs: Vital Signs Temperature 98.2 F 01/14/25 17:46 Pulse Rate 55 L 01/14/25 20:04 Respiratory Rate 16 01/14/25 19:00 Blood Pressure 168/64 01/14/25 19:00 Pulse Oximetry 100 01/14/25 20:04 Oxygen Delivery Me thod Room Air 01/14/25 20:04 MDM - Syncope Medical Decision Making Medical decision making: Differential diagnosis including but not limited to and based on the above HPI, review of systems and physical exam in this patient with syncope: Vasovagal, orthostatics hypotension, cardiac dysrhythmia, myocardial infarction, infection and hypotension, Orders placed to evaluate differential diagnosis based on the above differential, HPI and physical exam EKG: Time 1823. Rate 53. Sinus bradycardia, No ST-T changes, no ectopy, left anterior fascicular block, This was reviewed and interpreted by myself the ER physician at 1828. No significant changes from previous EKG. Lab Review: Laboratory results were reviewed and interpreted by myself the emergency room physician. No leukocytosis. No anemia. No renal failure. Urinary tract infection is mild. Trace leukocyte esterase with 6-10 whites. This may have been the cause of her syncope. I reviewed the patient's medical record. Reexamination: Patient remained stable. No increased work of breathing. No altered mental status. No focal motor deficits. Assessment and plan: Syncope Urinary tract infection ? Rocephin in the emergency room - Discharged home - Discussed plan with patient. Answered any questions. - Evaluation and treatment of this problem were appropriate in the emergency setting. Lab Data 01/14/25 17:59 01/14/25 20:52 Laboratory Results WBC 7.04 10^3/uL (3.29-11.43) 01/14/25 17:59 RBC 4.02 10^6/uL (3.85-5.65) 01/14/25 17:59 Hgb 11.40 g/dL (11.27-16.99) 01/14/25 17:59 Hct 37.7 % (36-47) 01/14/25 17:59 MCV 93.8 fl (85-98) 01/14/25 17:59 MCH 28.4 pg (27-33) 01/14/25 17:59 MCHC 30.2 g/dL (30-55) 01/14/25 17:59 RDW 13.6 % (12.1-15.1) 01/14/25 17:59 Plt Count 151 10^3/cmm (157-399) L 01/14/25 17:59 MPV 9.7 fL (7.4-10.4) 01/14/25 17:59 Neut % (Auto) 55.9 % 01/14/25 17:59 Lymph % (Auto) 35.8 % 01/14/25 17:59 [place] % (Auto) 5.5 % 01/14/25 17:59 Eos % (Auto) 2.3 % 01/14/25 17:59 Baso % (Auto) 0.4 % 01/14/25 17:59 Neut # (Auto) 3.93 10^3/uL (1.8-7.7) 01/14/25 17:59 Lymph # (Auto) 2.5 10^3/uL (0.8-4.8) 01/14/25 17:59 [place] # (Auto) 0.4 10^3/uL (0.2-0.9) 01/14/25 17:59 Eos # (Auto) 0.2 10^3/uL (0.0-0.8) 01/14/25 17:59 Baso # (Auto) 0.0 10^3/uL (0.0-0.1) 01/14/25 17:59 Nucleated RBC % (auto) 0 % 01/14/25 17:59 Nucleated RBCs # 0.0 /100WBC 01/14/25 17:59 Sodium 139 mmol/L (136-145) 01/14/25 20:52 Potassium 4.1 mmol/L (3.5-5.1) 01/14/25 20:52 Chloride 105 mmol/L (98-107) 01/14/25 20:52 Carbon Dioxide 25 mmol/L (22-29) 01/14/25 20:52 Anion Gap 13.1 (5-19) 01/14/25 20:52 BUN 17 mg/dL (8-23) 01/14/25 20:52 Creatinine 0.9 mg/dL (0.5-0.9) 01/14/25 20:52 GFR Calculation Not Reportable 01/14/25 20:52 Glucose 116 mg/dL (65-115) H 01/14/25 20:52 Calculated Osmolality 291 mOsm/kg (285-295) 01/14/25 20:52 Lactic Acid 2.2 mmol/L (0.5-2.2) 01/14/25 17:59 Lactic Acid (Sepsis) 1.7 mmol/L (0.5-2.2) 01/14/25 20:26 Calcium 9.0 mg/dL (8.5-10.5) 01/14/25 20:52 Total Bilirubin 0.6 mg/dL (0.15-1.2) 01/14/25 20:52 AST 17 U/L (0-32) 01/14/25 20:52 ALT 11 U/L (0-33) 01/14/25 20:52 Alkaline Phosphatase 77 U/L (35-105) 01/14/25 20:52 Troponin T Baseline 17 ng/L (0-10) H 01/14/25 20:26 NT-Pro-B Natriuret Pep 195 pg/mL (0-450) 01/14/25 20: Total Protein 6.5 g/dL (6.6-8.7) L 01/14/25 20: Albumin 3.5 g/dL (3.5-5.2) 01/14/25 20: Globulin 3.0 g/dL (1.3-4.6) 01/14/25 20: Urine Color Yellow (Yellow) 01/14/25 20: Urine Appearance Clear (CLEAR) 01/14/25 20: Urine pH 5.5 (5-7) 01/14/25 20: Ur Specific [place] 1.024 (1.005-1.030) 01/14/25 20: Urine Protein 1+ (Negative) A 01/14/25 20: Urine Glucose (UA) Negative (Normal) 01/14/25: Urine Ketones Trace (Negative) 01/14/25 20: Urine Blood Non-haemolysed trace (Negative) 01/14/25: Urine Nitrate Negative (Negative) 01/14/25 20: Urine Bilirubin Negative (Negative) 01/14/25 20: Urine Urobilinogen 1.0 mg/dL (Negative) 01/14/25 20: Ur Leukocyte Esterase Trace (Negative) A 01/14/25 20: Urine RBC 3-5 /hpf (0-2) 01/14/25 20: Urine WBC 6-10 /hpf (0-5) 01/14/25 20: Ur Squamous Epith Cells 0-5 /hpf (0-5) 01/14/25 20: Amorphous Sediment Not Reportable 01/14/25 20: Urine Bacteria None seen /hpf (NONE) 01/14/25 20: Hyaline Casts 17.77 /lpf 01/14/25 20: Urine Mucus 2+ /hpf 01/14/25 20: No radiology studies performed this visit Discharge Plan Discharge Patient Disposition: Home Clinical Impression: Syncope, UTI (urinary tract infection) Condition: Stable Prescriptions: New cephalexin 500 mg tablet 500 mg PO TID 5 Days Qty: 15 0RF No Action atorvastatin [Lipitor] 40 mg tablet 40 mg PO DAILY Qty: 90 3RF olanzapine 5 mg tablet 5 mg PO DAILY donepezil 10 mg tablet 10 mg PO DAILY (DME) Diabetic Shoes 3 x insoles See Rx Instructions .Route .MEDSUPPLY Qty: 1 0RF Rx Instructions: As directed by Pedro OLSON methenamine hippurate 1 gram tablet 1 g PO BID aspirin 325 mg Tablet,Delayed Release (Dr/Ec) 325 mg PO DAILY Qty: 30 0RF Discharge Orders: Discharge ED (Routine); Ordered 01/14/25 Ordered By: Mallorie Coyle Referrals: Dayday Chandler DO [Primary Care Provider, Family Practice] Discharge Diet: Usual diet Discharge Activity: Increase activity as tolerated Patient Instructions: Syncope (ED), Opioid Safety, Pain Management Activity Restrictions/Additional Instructions: Thank you for choosing [facility] for your healthcare needs today. You have been screened and evaluated and felt safe for discharge. Health conditions do change or evolve sometimes and as such it is important that you follow up with your Primary Doctor to be re checked, 3-5 days is a general good time frame for follow up. You are always welcome to return to the ED for re assessment if your symptoms are worsening or you have new concerns Print Language: Bermudian Coding Level of Care Code ED Educational Sign Language Interpreter for Sury Mccormack
[2025-01-14 18:14] LABS: Basophils % 0.4 %; Eosinophils # 0.2 10^3/uL (0.0-0.8); Eosinophils % 2.3 %; Hematocrit 37.7 % (36-47); Lymphocytes # 2.5 10^3/uL (0.8-4.8); Lymphocytes % 35.8 %; Mean Corpuscular HGB Conc 30.2 g/dL (30-55); Mean Corpuscular Hemoglobin 28.4 pg (27-33); Mean Corpuscular Volume 93.8 fl (85-98); Mean Platelet Volume 9.7 fL (7.4-10.4); Monocytes # 0.4 10^3/uL (0.2-0.9); Monocytes % 5.5 %; Neutrophils # 3.93 10^3/uL (1.8-7.7); Neutrophils % 55.9 %; Nucleated Red Blood Cells % 0 %; Platelet Count 151 10^3/cmm (157-399); Red Blood Count 4.02 10^6/uL (3.85-5.65); Red Cell Distribution Width 13.6 % (12.1-15.1); White Blood Count 7.04 10^3/uL (3.29-11.43)
[2025-01-14 18:17] VITALS: BP 147/107; PULSE 58; RESP 16; O2SAT 98
[2025-01-14 18:30] LABS: Lactic Sepsis W/Reflex 2.2 mmol/L (0.5-2.2)
[2025-01-14 18:35] VITALS: BP 147/80; PULSE 54; RESP 16; O2SAT 98
[2025-01-14 19:00] VITALS: BP 168/64; PULSE 57; RESP 16; O2SAT 100
--- NOTE | 2025-01-14 19:51 | ECG_ITS ---
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 Measurements Intervals [place] Rate: 56 P: 264 MI: 218 QRS: 89 QRSD: 134 T: 31 QT: 479 QTc: 466 Interpretive Statements SINUS BRADYCARDIA WITH FIRST DEGREE AV BLOCK POSSIBLE LEFT ATRIAL ENLARGEMENT [-0.1mV P-WAVE IN V1/V2] RIGHT BUNDLE BRANCH BLOCK [120+ ms QRS DURATION, UPRIGHT V1, 40+ ms S IN I/aVL/V4/V5/V6] SEPTAL MYOCARDIAL INFARCTION , OF INDETERMINATE AGE [40+ ms Q WAVE IN V1/V2] Compared to ECG 01/14/2025 18:23:12 First degree AV block now present T-wave abnormality no longer present Left anterior fascicular block no longer present Myocardial infarct finding still present Electronically Signed On 01-15-2025 16:34:43 CDT by Humberto Parra M.D. [id number]
[2025-01-14 19:58] LABS: Reflex Lactate Order REFLEX LACTIC ORDERD
[2025-01-14 20:04] VITALS: PULSE 55; O2SAT 100
[2025-01-14 20:10] LABS: Bilirubin Urine Negative (Negative); Blood Urine Non-haemolysed trace (Negative); Glucose Urine UA Negative (Normal); Ketones Urine Trace (Negative); Leukocyte Esterase Urine Trace (Negative); Nitrate Urine Negative (Negative); Protein Urine 1+ (Negative); Specific Gravity, Urine 1.024 (1.005-1.030); Urine Appearance Clear (CLEAR); Urine Color Yellow (Yellow); pH Urine 5.5 (5-7)
[2025-01-14 20:15] LABS: Bacteria Urine None Seen /hpf; Hyaline Casts Urine 17.77 /lpf; Squamous Epithelial Cell Urine 0-5 /hpf (0-5)
[2025-01-14 20:25] LABS: Mucus Urine 2+ /hpf
[2025-01-14 20:57] LABS: Lactic Acid level (Lactate) 1.7 mmol/L (0.5-2.2); Troponin(5th) Baseline 17 ng/L (0-10)
[2025-01-14 21:25] LABS: Alanine Aminotransferase 11 U/L (0-33); Albumin Level 3.5 g/dL (3.5-5.2); Alkaline Phosphatase 77 U/L (35-105); Anion Gap 13.1 (5-19); Aspartate Amino Transferase 17 U/L (0-32); Blood Urea Nitrogen 17 mg/dL (8-23); Carbon Dioxide 25 mmol/L (22-29); Chloride 105 mmol/L (98-107); Creatinine Clr Calc Pharmacy 48.4282; Glucose 116 mg/dL (65-115); NT Pro B Type Natriuretic Pept 195 pg/mL (0-450); Osmolality Calculated 291 mOsm/kg (285-295); Potassium 4.1 mmol/L (3.5-5.1); Sodium 139 mmol/L (136-145); Total Bilirubin 0.6 mg/dL (0.15-1.2); Total Protein 6.5 g/dL (6.6-8.7)
[2025-01-14] MEDS: cefTRIAXone 1,000 mg SDV 1000 MG IVP (21:27)
[2025-01-14 21:38] VITALS: BP 180/75; PULSE 61; RESP 16; O2SAT 100
== END 2025-01-14 21:39 | disposition home or self-care (01) ==
PROVIDERS: Emergency Provider Emergency Medicine; PCP Electrodiagnostic Medicine
DX: R55 Syncope and collapse (principal); N39.0 Urinary tract infection, site not specified; R00.1 Bradycardia, unspecified; I48.91 Unspecified atrial fibrillation; E11.9 Type 2 diabetes mellitus without complications; E78.5 Hyperlipidemia, unspecified; I10 Essential (primary) hypertension; F03.90 Unspecified dementia, unspecified severity, without behavioral disturbance, psychotic disturbance, mood disturbance, and anxiety; Z79.899 Other long term (current) drug therapy
CPT/HCPCS: 36415; 80053; 81001; 83605; 83880; 84484; 85025; 87040; 93005; 96374; 99284; J0696

== ENCOUNTER → 2025-03-16 14:31 | Outpatient (BNVA) | payer MEDICARE, MEDICAID, SELFPAY | PROVIDERS: PCP Electrodiagnostic Medicine; Visit Provider Podiatrist Foot & Ankle Surgery | DX: E11.42 Type 2 diabetes mellitus with diabetic polyneuropathy (principal); L60.3 Nail dystrophy; G62.9 Polyneuropathy, unspecified; I73.9 Peripheral vascular disease, unspecified | CPT/HCPCS: 11721 ==